=== PATIENT | female | born 1995 | race Hispanic/Latino ===

== ENCOUNTER 2016-11-25 22:23 | Emergency (ER) | payer OTHER ==
[2016-11-26] MEDS ORDERED: ONDANSETRON 4 MG ORAL DISINTEGRATING TAB (S0181) As Ordered ONE ×2 (01:02→01:11)
[2016-11-26 01:08] LABS: BASO % 0.3 % (0.0-1.0); EOS % 0.3 % (0.0-3.0); LARGE UNSTAINED CELL # 0.1 K/mm3 (0.0-0.4); LARGE UNSTAINED CELL % 1.1 % (0.0-4.0); LYMPH # 1.7 K/mm3 (1.5-6.5); LYMPH % 14.8 % (24.0-44.0); MEAN CORPUSCULAR HEMOGLOBIN 28.1 pg (27.0-33.0); MEAN CORPUSCULAR HGB CONC 32.5 g/dl (32.0-36.5); MEAN CORPUSCULAR VOLUME 86.3 fl (80.0-96.0); MONO # 0.5 K/mm3 (0.0-0.8); NEUTROPHILS # 9.2 K/mm3 (1.8-7.7); NEUTROPHILS % 79.5 % (36.0-66.0); PLATELET COUNT, AUTOMATED 344 k/mm3 (150-450); RED CELL DISTRIBUTION WIDTH 13.4 % (11.5-14.5); WHITE BLOOD COUNT 11.6 K/mm3 (4.0-10.0)
[2016-11-26 01:17] LABS: ALBUMIN 3.7 GM/DL (3.2-5.2); ALBUMIN/GLOBULIN RATIO 0.97 (1.00-1.93); ALKALINE PHOSPHATASE 129 U/L (45-117); ALT/SGPT 30 U/L (12-78); AMYLASE 72 U/L (25-115); ANION GAP 10 MEQ/L (8-16); AST/SGOT 18 U/L (15-37); BILIRUBIN,DIRECT 0.1 MG/DL (0.0-0.2); BILIRUBIN,TOTAL 0.3 MG/DL (0.2-1.0); BLOOD UREA NITROGEN 10 MG/DL (7-18); CALCIUM LEVEL 8.8 MG/DL (8.5-10.1); CARBON DIOXIDE LEVEL 28 MEQ/L (21-32); CHLORIDE LEVEL 103 MEQ/L (98-107); CREATININE FOR GFR 0.74 MG/DL (0.55-1.02); GLOMERULAR FILTRATION RATE > 60.0 (>60); GLUCOSE, FASTING 112 MG/DL (70-105); POTASSIUM SERUM 3.9 MEQ/L (3.5-5.1); SODIUM LEVEL 141 MEQ/L (136-145); TOTAL PROTEIN 7.5 GM/DL (6.4-8.2)
[2016-11-26 02:35] LABS: CONTROL LINE HCG INT CTR LINE PRESENT
[2016-11-26] MEDS ORDERED: ISOVUE-370 76% 100ML VIAL (Q9967) As Ordered ONE (03:10)
--- NOTE | 2016-11-26 04:00 | REPUSA ---
CLINICAL HISTORY: Abdominal pain. TECHNIQUE: Multiple axial, sagittal and coronal CT images were obtained through the abdomen and pelvi s after administration of intravenous contrast material. COMMENTS: Compared to 06/25/16 study. The liver is of uniform attenuation without mass or defect. There is no intra or extrahepatic biliary ductal dilatation. The spleen is normal. The gallbladder is surgically absent. The pancreas is of no rmal contour and attenuation characteristics. There is no evidence of adrenal mass. Both kidneys demonstrate prompt and equal nephrograms. The kidneys are normal in size, shape and conf iguration. There is no evidence of renal or ureteral mass. No renal or ureteral calculi are identifie d. There is no hydroureter or hydronephrosis. No evidence for appendicitis. There is no bowel wall thickening. No evidence for small or large juan ramon l obstruction. There is no evidence of abdominal ascites or lymphadenopathy. There is no evidence of intrinsic or extrinsic bladder mass. There is no pelvic ascites or lymphadeno mainor. Images of the lung bases show no evidence of pleural or parenchymal mass. There are no pleural effusi ons. The bony structures are free of lytic or blastic lesions. IMPRESSION: No acute abdominal or pelvic pathology. No interval change. No evidence of acute abdominal or pelvic pathology. Thank you for your kind referral of this patient.
--- NOTE | 2016-11-26 04:30 | EDDOCDS ---
Nurse's Notes [facility] Name: Melida Peoples Age: 21 yrs Sex: Female : 1995 Arrival Date: 11/25/2016 Time: 22:23 Bed 18 Private MD: EWA Baltazar Diagnosis: Postcholecystectomy syndrome Presentation: 11/25 22:27 Presenting complaint: Patient states: right sided abd pain (x2 weeks). Now has nausea, ttb diarrhea. Urinary frequency noted. Pt states she has an apt with surgeon who removed gallbladder however cannot wait for apt due to the amount of pain. Risk factors: the patient reports no vaginal bleeding. Adult Sepsis Screening: The patient does not have new or worsening altered mentation. Patient's respiratory rate is less than 22. Systolic blood pressure is greater than 100. Patient has a qSOFA score of 0- Negative Sepsis Screen. Suicide/Homicide risk assessment- the patient denies having any suicidal and/or homicidal ideations and does not present with any other emotional, behavioral or mental health complaints. Status: The patient is a dependent. Transition of care: patient was not received from another setting of care. 22:27 Acuity: SEAN Level 3 ttb 22:27 Method Of Arrival: Walkin/Carried/Asstd ttb Triage Assessment: 22:29 General: Appears in no apparent distress, uncomfortable, well nourished, well groomed, ttb Behavior is appropriate for age, cooperative, pleasant, restless. Pain: Location: right abd 10/10 Pain radiates to mid abd, flank, lower back. HIV screening NA for this visit Offered previously. Neurological: Level of Consciousness is awake, alert. Cardiovascular: Chest pain is denied. Respiratory: No deficits noted. Airway is patent Denies cough, shortness of breath. GI: Reports bloating, diarrhea, lower abdominal pain, upper abd pain, nausea, Denies constipation. Derm: Skin is normal. Injury Description: No known injury. 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 none - PMHx: none; - PSHx: Cholecystectomy; Tonsillectomy; Adenoidectomy; - Social history: Smoking status: Patient uses tobacco products, current every day smoker. Patient/guardian denies using alcohol, street drugs, No barriers to communication noted, The patient speaks fluent German, Speaks appropriately for age. - Family history: Not pertinent. - : The pt / caregiver states he / she is not on anticoagulants. Home medication list is obtained from the patient. - Exposure Risk Screening:: None identified. Screenin/15 00:28 Screening information is obtained from the patient. Fall risk: No risks identified. kas2 Assistance ADL's: requires no assistance with activities of daily living. Abuse/DV Screen: The patient / caregiver reports he/she is: not in a situation that causes fear, pain or injury. Nutritional screening: No deficits noted. Advance Directives: Currently, there is no health care proxy. There is no active DNR order. There is no living will. There is no Power of Bisque Cleaner. home support is adequate. Assessment: 00:25 General: Appears in no apparent distress, uncomfortable, well nourished, well groomed, kas2 Behavior is appropriate for age, cooperative. Pain: Location: abdominal Pain currently is 9 out of 10 on a pain scale. Neurological: Level of Consciousness is awake, alert, Oriented to person, place, time. Cardiovascular: Capillary refill < 3 seconds Heart tones S1 S2 present Rhythm is sinus tachycardia No ectopy. Respiratory: Airway is patent Respiratory effort is even, unlabored, Respiratory pattern is regular, symmetrical, Breath sounds are clear bilaterally. GI: Abdomen is obese, Bowel sounds present X 4 quads. Abd is tender to palpation X 4 quads. Derm: Skin is intact, Skin is dry, Skin is pink, warm & dry. Skin temperature is warm. 01:32 General: Patient sitting in bed with friend at bedside. No apparent distress. Patient kas2 states pain is 2/10. Call palacios within reach. Will continue to monitor.. 02:25 General: Patient laying in bed with friend at bedside. Appears comfortable. Watching kas2 TV. No apparent distress. Call palacios within reach. Will continue to monitor.. 03:10 General: Patient gone to CT scan with tech via stretcher.. kas2 03:18 General: Patient back from CT scan via stretcher with RN. Resettled in bed.. kas2 03:21 General: Appears in no apparent distress, comfortable, well nourished, well groomed, kas2 Behavior is appropriate for age, cooperative. Pain: Location: abdomen Pain currently is 2 out of 10 on a pain scale. Neurological: Level of Consciousness is awake, alert, Oriented to person, place, time. Cardiovascular: Rhythm is sinus tachycardia No ectopy. Respiratory: Airway is patent Respiratory effort is even, unlabored, Respiratory pattern is regular, symmetrical. Derm: Skin Skin is dry, Skin is pink, warm & dry. Skin temperature is warm. 03:58 General: Patient up to bathroom to void.. kas2 Vital Signs: 11/25 22:25 BP 144 / 82; Pulse 139; Resp 18 S; Temp 99.2(O); Pulse Ox 100% on R/A; Weight 104.33 kg dd6 (R); Height 5 ft. 3 in. (160.02 cm) (R); 11/26 01:08 BP 131 / 67 RA Supine; Pulse 106; kas2 01:08 BP 131 / 66 RA Sitting; Pulse 102; kas2 01:08 BP 131 / 75 RA Standing; Pulse 116; kas2 04:27 BP 128 / 62; Pulse 90; Resp 18; Temp 97.6(O); Pulse Ox 99% ; Pain 3/10; kas2 11/25 22:25 Body Mass Index 40.74 (104.33 kg, 160.02 cm) dd6 Vitals: 11/25 22:25 Log In Time: November 25, 2016 at 22:23. dd6 ED Course: 22:24 Patient visited by Derick Vora PCA. dd6 22:24 Patient moved to Waiting dd6 22:25 Giovanny [facility] is Private Physician. dd6 22:26 Patient moved to Pre RCE dd6 22:28 Triage Initiated ttb 22:31 Patient visited by Lucita Bishop RN. ttb 22:37 Patient visited by Lucita Bishop RN. ttb 23:34 Patient moved to Triage 1 jmb 11/26 00:[address],ELIAZAR is Primary Nurse. jmb 00:01 Patient moved to 18 jmb 00:[address] by Gayatri Lane RN. kas2 00:[address] visited by Gayatri Lane RN. kas2 00:35 Patient visited by Gayatri Lane RN. kas2 00:35 Inserted saline lock: 20 gauge in left antecubital area and blood collected. The kas2 patient tolerated the procedure well. No procedures done that require assistance. 00:40 Matthew Rouse DO is Attending Physician. cs11 00:41 Patient visited by Matthew Rouse DO. cs11 01:01 Lipase Sent. kas2 01:01 Amylase Sent. kas2 01:01 Liver Profile Sent. kas2 01:01 MED Profile Sent. kas2 01:01 CBC with Diff Sent. kas2 01:01 Urine Culture Sent. kas2 01:09 [address] visited by Gayatri Lane RN. kas2 01:45 Patient visited by Gayatri Lane RN. kas2 02:19 Patient visited by Gayatri Lane RN. kas2 02:38 [facility] Payment Agreement was scanned into [employer] and attached to record. hs2 03:[address] Gayatri Lane RN. kas2 03:[address] Gayatri Lane RN. kas2 04:06 Redd Emery DO is Referral Physician. cs11 04:13 CT ABD & PELVIS: IV Contrast Only Returned. EDMS 04:28 Discontinued IV bleeding controlled, pressure dressing applied, No redness/swelling at [facility] site. 04:29 [address] visited by Gayatri Lane RN. kas2 04:29 The patient / caregiver is instructed regarding the plan of care and ED course. [facility] Administered Medications: 01:09 Drug: Ondansetron ODT 8 mg [ondansetron 4 mg disintegrating tablet (2 tabs)] Route: PO; [facility] Order Results: Lab Order: UA; SPEC'M 11/25/16 22:41 Test: APPEARANCE, URINE; Value: CLEAR; Range: CLEAR; Status: F Test: COLOR, URINE; Value: YELLOW; Range: YELLOW; Status: F Test: PH,URINE; Value: 5.0; Range: 5.0-9.0; Units: UNITS; Status: F Test: SPECIFIC GRAVITY URINE AUTO; Value: 1.013; Range: 1.002-1.035; Status: F Test: PROTEIN, URINE AUTO; Value: NEGATIVE; Range: NEGATIVE; Units: mg/dL; Status: F Test: GLUCOSE, URINE (UA) AUTO; Value: NEGATIVE; Range: NEGATIVE; Units: mg/dL; Status: F Test: KETONE, URINE AUTO; Value: NEGATIVE; Range: NEGATIVE; Units: mg/dL; Status: F Test: UROBILINOGEN, URINE AUTO; Value: 0.2; Range: 0.0-2.0; Units: mg/dL; Status: F Test: BILIRUBIN, URINE AUTO; Value: NEGATIVE; Range: NEGATIVE; Status: F Test: NITRITE, URINE AUTO; Value: NEGATIVE; Range: NEGATIVE; Status: F Test: LEUKOCYTE ESTERASE, URINE AUTO; Value: NEGATIVE; Range: NEGATIVE; Status: F Test: BLOOD, URINE BLOOD; Value: 1+; Range: NEGATIVE; Abnormal: Above high normal; Status: F Test: WBC, URINE AUTO; Value: 1; Range: 0-3; Units: /HPF; Status: F Test: RBC, URINE AUTO; Value: 2; Range: 0-3; Units: /HPF; Status: F Test: BACTERIA, URINE AUTO; Value: NEGATIVE; Range: NEGATIVE; Status: F Test: SQUAMOUS EPITHELIAL CELL UR AU; Value: 0; Range: 0-6; Units: /HPF; Status: F Test: MUCUS, URINE; Value: SMALL; Range: NEGATIVE; Status: F Test: HYALINE CAST, URINE AUTO; Value: 0; Range: 0-1; Units: /LPF; Status: F Lab Order: CBC with Diff; SPEC'M 11/26/16 00:34 Test: WHITE BLOOD COUNT; Value: 11.6; Range: 4.0-10.0; Abnormal: Above high normal; Units: K/mm3; Status: F Test: RED BLOOD COUNT; Value: 4.31; Range: 4.00-5.40; Units: M/mm3; Status: F Test: HEMOGLOBIN; Value: 12.1; Range: 12.0-16.0; Units: g/dl; Status: F Test: HEMATOCRIT; Value: 37.2; Range: 36.0-47.0; Units: %; Status: F Test: MEAN CORPUSCULAR VOLUME; Value: 86.3; Range: 80.0-96.0; Units: fl; Status: F Test: MEAN CORPUSCULAR HEMOGLOBIN; Value: 28.1; Range: 27.0-33.0; Units: pg; Status: F Test: MEAN CORPUSCULAR HGB CONC; Value: 32.5; Range: 32.0-36.5; Units: g/dl; Status: F Test: RED CELL DISTRIBUTION WIDTH; Value: 13.4; Range: 11.5-14.5; Units: %; Status: F Test: PLATELET COUNT, AUTOMATED; Value: 344; Range: 150-450; Units: k/mm3; Status: F Test: NEUTROPHILS %; Value: 79.5; Range: 36.0-66.0; Abnormal: Above high normal; Units: %; Status: F Test: LYMPH %; Value: 14.8; Range: 24.0-44.0; Abnormal: Below low normal; Units: %; Status: F Test: MONO %; Value: 4.0; Range: 0.0-5.0; Units: %; Status: F Test: EOS %; Value: 0.3; Range: 0.0-3.0; Units: %; Status: F Test: BASO %; Value: 0.3; Range: 0.0-1.0; Units: %; Status: F Test: LARGE UNSTAINED CELL %; Value: 1.1; Range: 0.0-4.0; Units: %; Status: F Test: NEUTROPHILS #; Value: 9.2; Range: 1.8-7.7; Abnormal: Above high normal; Units: K/mm3; Status: F Test: LYMPH #; Value: 1.7; Range: 1.5-6.5; Units: K/mm3; Status: F Test: MONO #; Value: 0.5; Range: 0.0-0.8; Units: K/mm3; Status: F Test: EOS #; Value: 0.0; Range: 0.0-0.50; Units: K/mm3; Status: F Test: BASO #; Value: 0.0; Range: 0.0-0.2; Units: K/mm3; Status: F Test: LARGE UNSTAINED CELL #; Value: 0.1; Range: 0.0-0.4; Units: K/mm3; Status: F Lab Order: MED Profile; SPEC'M 11/26/16 00:34 Test: GLUCOSE, FASTING; Value: 112; Range: 70-105; Abnormal: Above high normal; Units: MG/DL; Status: F Test: BLOOD UREA NITROGEN; Value: 10; Range: 7-18; Units: MG/DL; Status: F Test: CREATININE FOR GFR; Value: 0.74; Range: 0.55-1.02; Units: MG/DL; Status: F Test: GLOMERULAR FILTRATION RATE; Value: > 60.0; Range: >60; Status: F Test: SODIUM LEVEL; Value: 141; Range: 136-145; Units: MEQ/L; Status: F Test: POTASSIUM SERUM; Value: 3.9; Range: 3.5-5.1; Units: MEQ/L; Status: F Test: CHLORIDE LEVEL; Value: 103; Range: 98-107; Units: MEQ/L; Status: F Test: CARBON DIOXIDE LEVEL; Value: 28; Range: 21-32; Units: MEQ/L; Status: F Test: ANION GAP; Value: 10; Range: 8-16; Units: MEQ/L; Status: F Test: CALCIUM LEVEL; Value: 8.8; Range: 8.5-10.1; Units: MG/DL; Status: F Test Note: ; Units are mL/min/1.73 m2 Chronic Kidney Disease Staging per NKF: Stage I & II GFR >=60 Normal to Mildly Decreased Stage III GFR 30-59 Moderately Decreased Stage IV GFR 15-29 Severely Decreased Stage V GFR <15 Very Little GFR Left ESRD GFR <15 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 Lab Order: Liver Profile; [facility]' 11/26/16 00:34 Test: AST/SGOT; Value: 18; Range: 15-37; Units: U/L; Status: F Test: ALT/SGPT; Value: 30; Range: 12-78; Units: U/L; Status: F Test: ALKALINE PHOSPHATASE; Value: 129; Range: 45-117; Abnormal: Above high normal; Units: U/L; Status: F Test: BILIRUBIN,TOTAL; Value: 0.3; Range: 0.2-1.0; Units: MG/DL; Status: F Test: BILIRUBIN,DIRECT; Value: 0.1; Range: 0.0-0.2; Units: MG/DL; Status: F Test: TOTAL PROTEIN; Value: 7.5; Range: 6.4-8.2; Units: GM/DL; Status: F Test: ALBUMIN; Value: 3.7; Range: 3.2-5.2; Units: GM/DL; Status: F Test: ALBUMIN/GLOBULIN RATIO; Value: 0.97; Range: 1.00-1.93; Abnormal: Below low normal; Status: F Lab Order: Amylase; SPEC'M 11/26/16 00:34 Test: AMYLASE; Value: 72; Range: 25-115; Units: U/L; Status: F Lab Order: Lipase; SPEC'M 11/26/16 00:34 Test: LIPASE; Value: 129; Range: 73-393; Units: U/L; Status: F Lab Order: HCG,Serum Qualitative; SPEC'M 11/26/16 00:34 Test: HCG, SERUM QUALITATIVE; Value: NEGATIVE; Range: NEGATIVE; Status: F Radiology Order: CT ABD & PELVIS: IV Contrast Only Test: CT ABD & PELVIS: IV Contrast Only REASON FOR EXAMINATION: Abdomen Pain; ; CLINICAL HISTORY: Abdominal pain.; TECHNIQUE: Multiple axial, sagittal and coronal CT images were obtained through the abdomen and pelvi; s after administration of intravenous contrast material.; COMMENTS: Compared to 06/25/16 study.; The liver is of uniform attenuation without mass or defect. There is no intra or extrahepatic biliary; ductal dilatation. The spleen is normal. The gallbladder is surgically absent. The pancreas is of no; rmal contour and attenuation characteristics. There is no evidence of adrenal mass.; Both kidneys demonstrate prompt and equal nephrograms. The kidneys are normal in size, shape and conf; iguration. There is no evidence of renal or ureteral mass. No renal or ureteral calculi are identifie; d. There is no hydroureter or hydronephrosis.; No evidence for appendicitis. There is no bowel wall thickening. No evidence for small or large juan ramon; l obstruction. There is no evidence of abdominal ascites or lymphadenopathy.; There is no evidence of intrinsic or extrinsic bladder mass. There is no pelvic ascites or lymphadeno; mainor.; Images of the lung bases show no evidence of pleural or parenchymal mass. There are no pleural effusi; ons.; The bony structures are free of lytic or blastic lesions.; IMPRESSION:; No acute abdominal or pelvic pathology. No interval change.; No evidence of acute abdominal or pelvic pathology.; Thank you for your kind referral of this patient.; ; Outcome: 04:06 Discharge ordered by Provider. cs11 04:28 Discharge Assessment: patient administered narcotics - no. The following High Risk kas2 Discharge criteria are identified: None. Discharged to home ambulatory, with friend. Condition: good Condition: stable Condition: improved. CT Study completed. Property :Personal belongings accompany Pt. 04:29 Patient left the ED. kas2 Signatures: Dispatcher [employer] EDMS Derick Vora, COLORMAN COLORMAN dd6 Matthew Rouse, DO cs11 Lucita Bishop RN RN ttb Issac Michelle RN RN b Brianne Garcia, Reg Reg hs2 Gayatri Lane RN RN [facility] Corrections: (The following items were deleted from the chart) 11/25 22:36 22:27 Presenting complaint: Patient states: right sided abd pain, nausea, diarrhea. ttb Urinary frequency noted. ttb MTDD
--- NOTE | 2016-11-26 04:30 | EDDOCDS ---
Physician Documentation [facility] Name: Melida Peoples Age: 21 yrs Sex: Female : 1995 Arrival Date: 11/25/2016 Time: 22:23 Bed 18 Private MD: Giovanny [facility] Disposition: 11/26/16 04:06 Discharged to Home/Self Care. Impression: Postcholecystectomy syndrome. - Condition is Stable. - Medication Reconciliation, Local Pharmacy Hours form. - Follow up: Private Physician; When: As previously arranged; Reason: Recheck today's complaints. Follow up: Redd Emery DO; When: As previously arranged. - Problem is an ongoing problem. - Symptoms have improved. Historical: - Allergies: no known allergies; - Home Meds: 1. none - PMHx: none; - PSHx: Cholecystectomy; Tonsillectomy; Adenoidectomy; - Social history: Smoking status: Patient uses tobacco products, current every day smoker. Patient/guardian denies using alcohol, street drugs, No barriers to communication noted, The patient speaks fluent Sami, Speaks appropriately for age. - Family history: Not pertinent. - : The pt / caregiver states he / she is not on anticoagulants. Home medication list is obtained from the patient. - Exposure Risk Screening:: None identified. 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 3 in. (160.02 cm) (R); 11/26 01:08 BP 131 / 67 RA Supine; Pulse 106; kas2 01:08 BP 131 / 66 RA Sitting; Pulse 102; kas2 01:08 BP 131 / 75 RA Standing; Pulse 116; kas2 04:27 BP 128 / 62; Pulse 90; Resp 18; Temp 97.6(O); Pulse Ox 99% ; Pain 3/10; kas2 11/25 22:25 Body Mass Index 40.74 (104.33 kg, 160.02 cm) dd6 MDM: 11/25 22:38 UA Ordered. EDMS 11/26 00:59 UA Reviewed. cs11 01:00 Ondansetron ODT Oral Disintegrating Tablet 8 mg PO once ordered. cs11 01:00 Orthostatic VS ordered. cs11 01:00 CBC with Diff Ordered. EDMS 01:00 MED Profile Ordered. EDMS 01:00 Liver Profile Ordered. EDMS 01:00 Amylase Ordered. EDMS 01:00 Lipase Ordered. EDMS 01:00 Urine Culture Ordered. EDMS 01:21 Financial registration complete. hs2 02:23 CBC with Diff Reviewed. cs11 02:23 MED Profile Reviewed. cs11 02:23 Liver Profile Reviewed. cs11 02:23 Amylase Reviewed. cs11 02:23 Lipase Reviewed. cs11 02:25 HCG,Serum Qualitative Ordered. EDMS 02:38 [facility] Payment Agreement was scanned into [employer] and attached to record. hs2 02:56 HCG,Serum Qualitative Reviewed. cs11 02:57 CT ABD & PELVIS: IV Contrast Only Ordered. EDMS Administered Medications: 01:09 Drug: Ondansetron ODT 8 mg [ondansetron 4 mg disintegrating tablet (2 tabs)] Route: PO; kas2 Signatures: Dispatcher [employer] EDMS Matthew Rouse DO DO cs11 Lucita Bishop RN RN ttb Brianne Garcia, Reg Reg hs2 Gayatri Lane RN RN kas2 The chart was reviewed and I authenticate all verbal orders and agree with the evaluation and treatment provided.Attachments: 02:38 [facility] Payment Agreement hs2 MTDD
--- NOTE | 2016-11-28 05:30 | EDDOCDS ---
Physician Documentation [facility] Name: Melida Peoples Age: 21 yrs Sex: Female : 1995 Arrival Date: 11/25/2016 Time: 22:23 Bed 18 Private MD: [facility] [place] Disposition: 11/26/16 04:06 Discharged to Home/Self Care. Impression: Postcholecystectomy syndrome. - Condition is Stable. - Medication Reconciliation, Local Pharmacy Hours form. - Follow up: Private Physician; When: As previously arranged; Reason: Recheck today's complaints. Follow up: Redd Emery DO; When: As previously arranged. - Problem is an ongoing problem. - Symptoms have improved. Historical: - Allergies: no known allergies; - Home Meds: 1. none - PMHx: none; - PSHx: Cholecystectomy; Tonsillectomy; Adenoidectomy; - Social history: Smoking status: Patient uses tobacco products, current every day smoker. Patient/guardian denies using alcohol, street drugs, No barriers to communication noted, The patient speaks fluent Swedish, Speaks appropriately for age. - Family history: Not pertinent. - : The pt / caregiver states he / she is not on anticoagulants. Home medication list is obtained from the patient. - Exposure Risk Screening:: None identified. 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 3 in. (160.02 cm) (R); 11/26 01:08 BP 131 / 67 RA Supine; Pulse 106; kas2 01:08 BP 131 / 66 RA Sitting; Pulse 102; kas2 01:08 BP 131 / 75 RA Standing; Pulse 116; kas2 04:27 BP 128 / 62; Pulse 90; Resp 18; Temp 97.6(O); Pulse Ox 99% ; Pain 3/10; kas2 11/25 22:25 Body Mass Index 40.74 (104.33 kg, 160.02 cm) dd6 MDM: 11/25 22:38 UA Ordered. EDMS 11/26 00:59 UA Reviewed. cs11 01:00 Ondansetron ODT Oral Disintegrating Tablet 8 mg PO once ordered. cs11 01:00 Orthostatic VS ordered. cs11 01:00 CBC with Diff Ordered. EDMS 01:00 MED Profile Ordered. EDMS 01:00 Liver Profile Ordered. EDMS 01:00 Amylase Ordered. EDMS 01:00 Lipase Ordered. EDMS 01:00 Urine Culture Ordered. EDMS 01:21 Financial registration complete. hs2 02:23 CBC with Diff Reviewed. cs11 02:23 MED Profile Reviewed. cs11 02:23 Liver Profile Reviewed. cs11 02:23 Amylase Reviewed. cs11 02:23 Lipase Reviewed. cs11 02:25 HCG,Serum Qualitative Ordered. EDMS 02:38 [facility] Payment Agreement was scanned into [employer] and attached to record. hs2 02:56 HCG,Serum Qualitative Reviewed. cs11 02:57 CT ABD & PELVIS: IV Contrast Only Ordered. EDMS 09:07 T-Sheet-- Draft Copy was scanned into [employer] and attached to record. se 20:28 Radiology Report was scanned into [employer] and attached to record. klr 11/27 07:39 Radiology Report was scanned into [employer] and attached to record. gb Administered Medications: 11/26 01:09 Drug: Ondansetron ODT 8 mg [ondansetron 4 mg disintegrating tablet (2 tabs)] Route: PO; kas2 Signatures: Dispatcher [employer] EDNY Devorah Cordova, Reg Reg gb Matthew Rouse, DO DO cs11 Lucita Bishop RN RN ttb Brianne Garcia, Reg Reg hs2 Gayatri Lane RN RN kas2 Lynette Walker Kathie klr The chart was reviewed and I authenticate all verbal orders and agree with the evaluation and treatment provided.Attachments: 02:38 [facility] Payment Agreement hs2 09:07 T-Sheet-- Draft Copy se Chart Complete MTDD
--- NOTE | 2016-11-28 05:30 | EDDOCDS ---
Physician Documentation [facility] Name: eMlida Peoples Age: 21 yrs Sex: Female : 1995 Arrival Date: 11/25/2016 Time: 22:23 Bed 18 Private MD: Giov[facility] Disposition: 11/26/16 04:06 Discharged to Home/Self Care. Impression: Postcholecystectomy syndrome. - Condition is Stable. - Medication Reconciliation, Local Pharmacy Hours form. - Follow up: Private Physician; When: As previously arranged; Reason: Recheck today's complaints. Follow up: Redd Emery DO; When: As previously arranged. - Problem is an ongoing problem. - Symptoms have improved. Historical: - Allergies: no known allergies; - Home Meds: 1. none - PMHx: none; - PSHx: Cholecystectomy; Tonsillectomy; Adenoidectomy; - Social history: Smoking status: Patient uses tobacco products, current every day smoker. Patient/guardian denies using alcohol, street drugs, No barriers to communication noted, The patient speaks fluent Mohawk, Speaks appropriately for age. - Family history: Not pertinent. - : The pt / caregiver states he / she is not on anticoagulants. Home medication list is obtained from the patient. - Exposure Risk Screening:: None identified. 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 3 in. (160.02 cm) (R); 11/26 01:08 BP 131 / 67 RA Supine; Pulse 106; kas2 01:08 BP 131 / 66 RA Sitting; Pulse 102; kas2 01:08 BP 131 / 75 RA Standing; Pulse 116; kas2 04:27 BP 128 / 62; Pulse 90; Resp 18; Temp 97.6(O); Pulse Ox 99% ; Pain 3/10; kas2 11/25 22:25 Body Mass Index 40.74 (104.33 kg, 160.02 cm) dd6 MDM: 11/25 22:38 UA Ordered. EDMS 11/26 00:59 UA Reviewed. cs11 01:00 Ondansetron ODT Oral Disintegrating Tablet 8 mg PO once ordered. cs11 01:00 Orthostatic VS ordered. cs11 01:00 CBC with Diff Ordered. EDMS 01:00 MED Profile Ordered. EDMS 01:00 Liver Profile Ordered. EDMS 01:00 Amylase Ordered. EDMS 01:00 Lipase Ordered. EDMS 01:00 Urine Culture Ordered. EDMS 01:21 Financial registration complete. hs2 02:23 CBC with Diff Reviewed. cs11 02:23 MED Profile Reviewed. cs11 02:23 Liver Profile Reviewed. cs11 02:23 Amylase Reviewed. cs11 02:23 Lipase Reviewed. cs11 02:25 HCG,Serum Qualitative Ordered. EDMS 02:38 [facility] Payment Agreement was scanned into [employer] and attached to record. hs2 02:56 HCG,Serum Qualitative Reviewed. cs11 02:57 CT ABD & PELVIS: IV Contrast Only Ordered. EDMS 09:07 T-Sheet-- Draft Copy was scanned into [employer] and attached to record. se 20:28 Radiology Report was scanned into [employer] and attached to record. klr 11/27 07:39 Radiology Report was scanned into [employer] and attached to record. gb Administered Medications: 11/26 01:09 Drug: Ondansetron ODT 8 mg [ondansetron 4 mg disintegrating tablet (2 tabs)] Route: PO; kas2 Signatures: Dispatcher [employer] EDUT Devorah Cordova, Reg Reg gb Matthew Rouse, DO DO cs11 Lucita Bishop RN RN ttb Brianne Garcia, Reg Reg hs2 Gayatri Lane RN RN kas2 Lynette Walker Kathie klr The chart was reviewed and I authenticate all verbal orders and agree with the evaluation and treatment provided.Attachments: 02:38 [facility] Payment Agreement hs2 09:07 T-Sheet-- Draft Copy se Chart Complete MTDD
--- NOTE | 2016-11-28 05:30 | EDDOCDS ---
Nurse's Notes [facility] Name: Melida Peoples Age: 21 yrs Sex: Female : 1995 Arrival Date: 11/25/2016 Time: 22:23 Bed 18 Private MD: EWA Baltazar Diagnosis: Postcholecystectomy syndrome Presentation: 11/25 22:27 Presenting complaint: Patient states: right sided abd pain (x2 weeks). Now has nausea, ttb diarrhea. Urinary frequency noted. Pt states she has an apt with surgeon who removed gallbladder however cannot wait for apt due to the amount of pain. Risk factors: the patient reports no vaginal bleeding. Adult Sepsis Screening: The patient does not have new or worsening altered mentation. Patient's respiratory rate is less than 22. Systolic blood pressure is greater than 100. Patient has a qSOFA score of 0- Negative Sepsis Screen. Suicide/Homicide risk assessment- the patient denies having any suicidal and/or homicidal ideations and does not present with any other emotional, behavioral or mental health complaints. Status: The patient is a dependent. Transition of care: patient was not received from another setting of care. 22:27 Acuity: SEAN Level 3 ttb 22:27 Method Of Arrival: Walkin/Carried/Asstd ttb Triage Assessment: 22:29 General: Appears in no apparent distress, uncomfortable, well nourished, well groomed, ttb Behavior is appropriate for age, cooperative, pleasant, restless. Pain: Location: right abd 10/10 Pain radiates to mid abd, flank, lower back. HIV screening NA for this visit Offered previously. Neurological: Level of Consciousness is awake, alert. Cardiovascular: Chest pain is denied. Respiratory: No deficits noted. Airway is patent Denies cough, shortness of breath. GI: Reports bloating, diarrhea, lower abdominal pain, upper abd pain, nausea, Denies constipation. Derm: Skin is normal. Injury Description: No known injury. 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 none - PMHx: none; - PSHx: Cholecystectomy; Tonsillectomy; Adenoidectomy; - Social history: Smoking status: Patient uses tobacco products, current every day smoker. Patient/guardian denies using alcohol, street drugs, No barriers to communication noted, The patient speaks fluent Danish, Speaks appropriately for age. - Family history: Not pertinent. - : The pt / caregiver states he / she is not on anticoagulants. Home medication list is obtained from the patient. - Exposure Risk Screening:: None identified. Screenin/15 00:28 Screening information is obtained from the patient. Fall risk: No risks identified. kas2 Assistance ADL's: requires no assistance with activities of daily living. Abuse/DV Screen: The patient / caregiver reports he/she is: not in a situation that causes fear, pain or injury. Nutritional screening: No deficits noted. Advance Directives: Currently, there is no health care proxy. There is no active DNR order. There is no living will. There is no Power of Insulation Inspector. home support is adequate. Assessment: 00:25 General: Appears in no apparent distress, uncomfortable, well nourished, well groomed, kas2 Behavior is appropriate for age, cooperative. Pain: Location: abdominal Pain currently is 9 out of 10 on a pain scale. Neurological: Level of Consciousness is awake, alert, Oriented to person, place, time. Cardiovascular: Capillary refill < 3 seconds Heart tones S1 S2 present Rhythm is sinus tachycardia No ectopy. Respiratory: Airway is patent Respiratory effort is even, unlabored, Respiratory pattern is regular, symmetrical, Breath sounds are clear bilaterally. GI: Abdomen is obese, Bowel sounds present X 4 quads. Abd is tender to palpation X 4 quads. Derm: Skin is intact, Skin is dry, Skin is pink, warm & dry. Skin temperature is warm. 01:32 General: Patient sitting in bed with friend at bedside. No apparent distress. Patient kas2 states pain is 2/10. Call palacios within reach. Will continue to monitor.. 02:25 General: Patient laying in bed with friend at bedside. Appears comfortable. Watching kas2 TV. No apparent distress. Call palacios within reach. Will continue to monitor.. 03:10 General: Patient gone to CT scan with tech via stretcher.. kas2 03:18 General: Patient back from CT scan via stretcher with RN. Resettled in bed.. kas2 03:21 General: Appears in no apparent distress, comfortable, well nourished, well groomed, kas2 Behavior is appropriate for age, cooperative. Pain: Location: abdomen Pain currently is 2 out of 10 on a pain scale. Neurological: Level of Consciousness is awake, alert, Oriented to person, place, time. Cardiovascular: Rhythm is sinus tachycardia No ectopy. Respiratory: Airway is patent Respiratory effort is even, unlabored, Respiratory pattern is regular, symmetrical. Derm: Skin Skin is dry, Skin is pink, warm & dry. Skin temperature is warm. 03:58 General: Patient up to bathroom to void.. kas2 Vital Signs: 11/25 22:25 BP 144 / 82; Pulse 139; Resp 18 S; Temp 99.2(O); Pulse Ox 100% on R/A; Weight 104.33 kg dd6 (R); Height 5 ft. 3 in. (160.02 cm) (R); 11/26 01:08 BP 131 / 67 RA Supine; Pulse 106; kas2 01:08 BP 131 / 66 RA Sitting; Pulse 102; kas2 01:08 BP 131 / 75 RA Standing; Pulse 116; kas2 04:27 BP 128 / 62; Pulse 90; Resp 18; Temp 97.6(O); Pulse Ox 99% ; Pain 3/10; kas2 11/25 22:25 Body Mass Index 40.74 (104.33 kg, 160.02 cm) dd6 Vitals: 11/25 22:25 Log In Time: November 25, 2016 at 22:23. dd6 ED Course: 22:24 Patient visited by Derick Vora PCA. dd6 22:24 Patient moved to Waiting dd6 22:25 Giovanny [facility] is Private Physician. dd6 22:26 Patient moved to Pre RCE dd6 22:28 Triage Initiated ttb 22:31 Patient visited by Lucita Bishop RN. ttb 22:37 Patient visited by Lucita Bishop RN. ttb 23:34 Patient moved to Triage 1 jmb 11/26 00:[address],ELIAZAR is Primary Nurse. jmb 00:01 Patient moved to 18 jmb 00:[address] by Gayatri Lane RN. kas2 00:28 [address] visited by Gayatri Lane RN. kas2 00:35 Patient visited by Gayatri Lane RN. kas2 00:35 Inserted saline lock: 20 gauge in left antecubital area and blood collected. The kas2 patient tolerated the procedure well. No procedures done that require assistance. 00:40 Matthew Rouse DO is Attending Physician. cs11 00:41 Patient visited by Matthew Rouse DO. cs11 01:01 Lipase Sent. kas2 01:01 Amylase Sent. kas2 01:01 Liver Profile Sent. kas2 01:01 MED Profile Sent. kas2 01:01 CBC with Diff Sent. kas2 01:01 Urine Culture Sent. kas2 01:09 [address] visited by Gayatri Lane RN. kas2 01:[address] by Gayatri Lane RN. kas2 02:19 [address] visited by Gayatri Lane RN. kas2 02:38 [facility] Payment Agreement was scanned into RECUPYL and attached to record. hs2 03:[address] Gayatri Lane RN. kas2 03:[address] Gayatri Lane RN. kas2 04:06 Redd Emery DO is Referral Physician. cs11 04:13 CT ABD & PELVIS: IV Contrast Only Returned. EDMS 04:28 Discontinued IV bleeding controlled, pressure dressing applied, No redness/swelling at [facility] site. 04:[address] visited by Gayatri Lane RN. kas2 04:29 The patient / caregiver is instructed regarding the plan of care and ED course. [facility] 09:07 T-Sheet-- Draft Copy was scanned into RECUPYL and attached to record. [facility] 20:28 Radiology Report was scanned into RECUPYL and attached to record. klr 11/27 07:39 Radiology Report was scanned into RECUPYL and attached to record. gb Administered Medications: 11/26 01:09 Drug: Ondansetron ODT 8 mg [ondansetron 4 mg disintegrating tablet (2 tabs)] Route: PO; kas2 Order Results: Lab Order: UA; SPEC'M 11/25/16 22:41 Test: APPEARANCE, URINE; Value: CLEAR; Range: CLEAR; Status: F Test: COLOR, URINE; Value: YELLOW; Range: YELLOW; Status: F Test: PH,URINE; Value: 5.0; Range: 5.0-9.0; Units: UNITS; Status: F Test: SPECIFIC GRAVITY URINE AUTO; Value: 1.013; Range: 1.002-1.035; Status: F Test: PROTEIN, URINE AUTO; Value: NEGATIVE; Range: NEGATIVE; Units: mg/dL; Status: F Test: GLUCOSE, URINE (UA) AUTO; Value: NEGATIVE; Range: NEGATIVE; Units: mg/dL; Status: F Test: KETONE, URINE AUTO; Value: NEGATIVE; Range: NEGATIVE; Units: mg/dL; Status: F Test: UROBILINOGEN, URINE AUTO; Value: 0.2; Range: 0.0-2.0; Units: mg/dL; Status: F Test: BILIRUBIN, URINE AUTO; Value: NEGATIVE; Range: NEGATIVE; Status: F Test: NITRITE, URINE AUTO; Value: NEGATIVE; Range: NEGATIVE; Status: F Test: LEUKOCYTE ESTERASE, URINE AUTO; Value: NEGATIVE; Range: NEGATIVE; Status: F Test: BLOOD, URINE BLOOD; Value: 1+; Range: NEGATIVE; Abnormal: Above high normal; Status: F Test: WBC, URINE AUTO; Value: 1; Range: 0-3; Units: /HPF; Status: F Test: RBC, URINE AUTO; Value: 2; Range: 0-3; Units: /HPF; Status: F Test: BACTERIA, URINE AUTO; Value: NEGATIVE; Range: NEGATIVE; Status: F Test: SQUAMOUS EPITHELIAL CELL UR AU; Value: 0; Range: 0-6; Units: /HPF; Status: F Test: MUCUS, URINE; Value: SMALL; Range: NEGATIVE; Status: F Test: HYALINE CAST, URINE AUTO; Value: 0; Range: 0-1; Units: /LPF; Status: F Lab Order: CBC with Diff; SPEC'M 11/26/16 00:34 Test: WHITE BLOOD COUNT; Value: 11.6; Range: 4.0-10.0; Abnormal: Above high normal; Units: K/mm3; Status: F Test: RED BLOOD COUNT; Value: 4.31; Range: 4.00-5.40; Units: M/mm3; Status: F Test: HEMOGLOBIN; Value: 12.1; Range: 12.0-16.0; Units: g/dl; Status: F Test: HEMATOCRIT; Value: 37.2; Range: 36.0-47.0; Units: %; Status: F Test: MEAN CORPUSCULAR VOLUME; Value: 86.3; Range: 80.0-96.0; Units: fl; Status: F Test: MEAN CORPUSCULAR HEMOGLOBIN; Value: 28.1; Range: 27.0-33.0; Units: pg; Status: F Test: MEAN CORPUSCULAR HGB CONC; Value: 32.5; Range: 32.0-36.5; Units: g/dl; Status: F Test: RED CELL DISTRIBUTION WIDTH; Value: 13.4; Range: 11.5-14.5; Units: %; Status: F Test: PLATELET COUNT, AUTOMATED; Value: 344; Range: 150-450; Units: k/mm3; Status: F Test: NEUTROPHILS %; Value: 79.5; Range: 36.0-66.0; Abnormal: Above high normal; Units: %; Status: F Test: LYMPH %; Value: 14.8; Range: 24.0-44.0; Abnormal: Below low normal; Units: %; Status: F Test: MONO %; Value: 4.0; Range: 0.0-5.0; Units: %; Status: F Test: EOS %; Value: 0.3; Range: 0.0-3.0; Units: %; Status: F Test: BASO %; Value: 0.3; Range: 0.0-1.0; Units: %; Status: F Test: LARGE UNSTAINED CELL %; Value: 1.1; Range: 0.0-4.0; Units: %; Status: F Test: NEUTROPHILS #; Value: 9.2; Range: 1.8-7.7; Abnormal: Above high normal; Units: K/mm3; Status: F Test: LYMPH #; Value: 1.7; Range: 1.5-6.5; Units: K/mm3; Status: F Test: MONO #; Value: 0.5; Range: 0.0-0.8; Units: K/mm3; Status: F Test: EOS #; Value: 0.0; Range: 0.0-0.50; Units: K/mm3; Status: F Test: BASO #; Value: 0.0; Range: 0.0-0.2; Units: K/mm3; Status: F Test: LARGE UNSTAINED CELL #; Value: 0.1; Range: 0.0-0.4; Units: K/mm3; Status: F Lab Order: MED Profile; SPEC'M 11/26/16 00:34 Test: GLUCOSE, FASTING; Value: 112; Range: 70-105; Abnormal: Above high normal; Units: MG/DL; Status: F Test: BLOOD UREA NITROGEN; Value: 10; Range: 7-18; Units: MG/DL; Status: F Test: CREATININE FOR GFR; Value: 0.74; Range: 0.55-1.02; Units: MG/DL; Status: F Test: GLOMERULAR FILTRATION RATE; Value: > 60.0; Range: >60; Status: F Test: SODIUM LEVEL; Value: 141; Range: 136-145; Units: MEQ/L; Status: F Test: POTASSIUM SERUM; Value: 3.9; Range: 3.5-5.1; Units: MEQ/L; Status: F Test: CHLORIDE LEVEL; Value: 103; Range: 98-107; Units: MEQ/L; Status: F Test: CARBON DIOXIDE LEVEL; Value: 28; Range: 21-32; Units: MEQ/L; Status: F Test: ANION GAP; Value: 10; Range: 8-16; Units: MEQ/L; Status: F Test: CALCIUM LEVEL; Value: 8.8; Range: 8.5-10.1; Units: MG/DL; Status: F Test Note: ; Units are mL/min/1.73 m2 Chronic Kidney Disease Staging per NKF: Stage I & II GFR >=60 Normal to Mildly Decreased Stage III GFR 30-59 Moderately Decreased Stage IV GFR 15-29 Severely Decreased Stage V GFR <15 Very Little GFR Left ESRD GFR <15 on BAND [employer]W [employer]PERATOR [employer]KE CUTTING Lab Order: Liver Profile; SPEC'M 11/26/16 00:34 Test: AST/SGOT; Value: 18; Range: 15-37; Units: U/L; Status: F Test: ALT/SGPT; Value: 30; Range: 12-78; Units: U/L; Status: F Test: ALKALINE PHOSPHATASE; Value: 129; Range: 45-117; Abnormal: Above high normal; Units: U/L; Status: F Test: BILIRUBIN,TOTAL; Value: 0.3; Range: 0.2-1.0; Units: MG/DL; Status: F Test: BILIRUBIN,DIRECT; Value: 0.1; Range: 0.0-0.2; Units: MG/DL; Status: F Test: TOTAL PROTEIN; Value: 7.5; Range: 6.4-8.2; Units: GM/DL; Status: F Test: ALBUMIN; Value: 3.7; Range: 3.2-5.2; Units: GM/DL; Status: F Test: ALBUMIN/GLOBULIN RATIO; Value: 0.97; Range: 1.00-1.93; Abnormal: Below low normal; Status: F Lab Order: Amylase; SPEC'M 11/26/16 00:34 Test: AMYLASE; Value: 72; Range: 25-115; Units: U/L; Status: F Lab Order: Lipase; SPEC'M 11/26/16 00:34 Test: LIPASE; Value: 129; Range: 73-393; Units: U/L; Status: F Lab Order: Urine Culture; SPEC'M 11/25/16 22:41 Test: URINE CULTURE; Value: URINE CULTURE RESULT; Status: F Test: URINE CULTURE; Value: NO GROWTH CLINICAL SIGNIFICANCE 2 OR MORE ORGANISMS; Status: F Lab Order: HCG,Serum Qualitative; SPEC'M 11/26/16 00:34 Test: HCG, SERUM QUALITATIVE; Value: NEGATIVE; Range: NEGATIVE; Status: F Radiology Order: CT ABD & PELVIS: IV Contrast Only Test: CT ABD & PELVIS: IV Contrast Only REASON FOR EXAMINATION: Abdomen Pain; ; CLINICAL HISTORY: Abdominal pain.; TECHNIQUE: Multiple axial, sagittal and coronal CT images were obtained through the abdomen and pelvi; s after administration of intravenous contrast material.; COMMENTS: Compared to 06/25/16 study.; The liver is of uniform attenuation without mass or defect. There is no intra or extrahepatic biliary; ductal dilatation. The spleen is normal. The gallbladder is surgically absent. The pancreas is of no; rmal contour and attenuation characteristics. There is no evidence of adrenal mass.; Both kidneys demonstrate prompt and equal nephrograms. The kidneys are normal in size, shape and conf; iguration. There is no evidence of renal or ureteral mass. No renal or ureteral calculi are identifie; d. There is no hydroureter or hydronephrosis.; No evidence for appendicitis. There is no bowel wall thickening. No evidence for small or large juan ramon; l obstruction. There is no evidence of abdominal ascites or lymphadenopathy.; There is no evidence of intrinsic or extrinsic bladder mass. There is no pelvic ascites or lymphadeno; mainor.; Images of the lung bases show no evidence of pleural or parenchymal mass. There are no pleural effusi; ons.; The bony structures are free of lytic or blastic lesions.; IMPRESSION:; No acute abdominal or pelvic pathology. No interval change.; No evidence of acute abdominal or pelvic pathology.; Thank you for your kind referral of this patient.; ; Outcome: 04:06 Discharge ordered by Provider. 11 04:28 Discharge Assessment: patient administered narcotics - no. The following High Risk [facility] Discharge criteria are identified: None. Discharged to home ambulatory, with friend. Condition: good Condition: stable Condition: improved. CT Study completed. Property :Personal belongings accompany Pt. 04:29 Patient left the ED. [facility] Signatures: Dispatcher Med[employer] EDMS Devorah Cordova, Reg Reg gb Derick Vora, COMMERCIAL CONSTRUCTION SUPERINTENDENT COMMERCIAL CONSTRUCTION SUPERINTENDENT dd6 Matthew Rouse, DO DO cs11 uLcita Bishop RN RN carylb Issac Michelle RN RN Brianne Avalos, Reg Reg hs2 Gayatri Lane RN RN kas2 Lynette Walker Kathie klr Corrections: (The following items were deleted from the chart) 11/25 22:36 22:27 Presenting complaint: Patient states: right sided abd pain, nausea, diarrhea. ttb Urinary frequency noted. ttb Chart Complete MTDD
== END 2016-11-26 04:29 | disposition home or self-care (01) ==
LOC: M ED 22:23
DX: K91.5 Postcholecystectomy syndrome (principal); Z90.49 Acquired absence of other specified parts of digestive tract; Z90.89 Acquired absence of other organs; F17.200 Nicotine dependence, unspecified, uncomplicated
CPT/HCPCS: 36415; 74177; 80048; 80076; 81001; 82150; 83690; 84703; 85025; 87086; 99285; Q9967

== ENCOUNTER 2016-11-27 02:25 | Emergency (ER) | payer OTHER ==
--- NOTE | 2016-11-27 07:41 | EDDOCDS ---
Physician Documentation [facility] Name: Melida Peoples Age: 21 yrs Sex: Female : 1995 Arrival Date: 11/27/2016 Time: 02:25 Bed 14 Private MD: Disposition: 11/27/16 06:08 Discharged to Home/Self Care. Impression: Volume depletion, Orthostatic hypotension. - Condition is Stable. - Medication Reconciliation, Local Pharmacy Hours form. - Follow up: Private Physician; When: 1 - 2 days; Reason: Recheck today's complaints, Continuance of care. - Problem is an ongoing problem. - Symptoms have improved. Historical: - Allergies: No known drug Allergies; - Home Meds: 1. none - PMHx: none; - PSHx: Cholecystectomy; Tonsillectomy; Adenoidectomy; - Social history: Smoking status: Cigars No barriers to communication noted, The patient speaks fluent Latvian, Speaks appropriately for age. - Family history: Not pertinent, No immediate family members are acutely ill. - : The pt / caregiver states he / she is not on anticoagulants. Home medication list is obtained from the patient, [employer] import data. - Exposure Risk Screening:: None identified. 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 3 in. (160.02 cm) (R); Pain 8/10; 02:48 BP 121 / 73 (auto/); kmg1 02:48 Pulse 92 MON; Pulse Ox 98% ; kmg1 03:03 BP 113 / 56 (auto/); kmg1 03:03 Pulse 84 MON; Pulse Ox 96% ; kmg1 03:18 BP 117 / 56 (auto/); kmg1 03:18 Pulse 80 MON; Pulse Ox 97% ; kmg1 03:33 BP 103 / 56 (auto/); kmg1 03:33 Pulse 84 MON; Pulse Ox 96% ; kmg1 03:48 BP 104 / 58 (auto/); kmg1 03:48 Pulse 86 MON; Pulse Ox 98% ; kmg1 04:15 BP 109 / 65 Supine; Pulse 82; kmg1 04:16 BP 126 / 81 Sitting; Pulse 88; kmg1 04:17 BP 132 / 84 Standing; Pulse 100; kmg1 06:11 BP 115 / 76 LA Sitting (auto/reg); Pulse 89 MON; Resp 18 S; Temp 98.7(TE); Pulse Ox 97% cln on R/A; Pain 0/10; 02:41 Body Mass Index 40.74 (104.33 kg, 160.02 cm) kmg1 04:17 reports dizziness [facility] MDM: 03:01 Fingerstick Blood Sugar Ordered. EDMS 03:18 Financial registration complete. [facility] 04:11 Orthostatic VS ordered. cs11 04:22 NS 0.9% 2000 ml IV at bolus once ordered. [facility] 04:32 [facility] [place] Agreement was scanned into [employer] and attached to record. [facility] Point of Care Testing: Blood Glucose: 02:55 Blood Glucose: 90 mg/dL; kmg1 Ranges: Administered Medications: 04:32 Drug: NS 0.9% 2000 ml [sodium chloride 0.9 % intravenous solution] Route: IV; Rate: kmg1 bolus; Site: right antecubital; Signatures: Dispatcher [employer] [facility] Marcelle Galarza RN RN g1 Renita Roe RN RN hs1 Matthew Rouse, DO [facility] Ava Graff [facility] The chart was reviewed and I authenticate all verbal orders and agree with the evaluation and treatment provided.Attachments: 04:32 [facility] Payment Agreement [facility] MTDD
--- NOTE | 2016-11-27 07:41 | EDDOCDS ---
Nurse's Notes [facility] Name: Melida Peoples Age: 21 yrs Sex: Female : 1995 Arrival Date: 11/27/2016 Time: 02:25 Bed 14 Private MD: Diagnosis: Volume depletion;Orthostatic hypotension Presentation: 11/27 02:37 Presenting complaint: Patient states: Awoke this morning on the floor. Had been kmg1 watching TV all day and resting. Got up to go to bed and felt left arm and chest, neck, and face get stiff and numb then remembers darkness. Was down for approx hour and a half as best she can recall. Suicide/Homicide risk assessment- the patient denies having any suicidal and/or homicidal ideations and does not present with any other emotional, behavioral or mental health complaints. Status: The patient is a dependent. Transition of care: patient was not received from another setting of care. 02:37 Acuity: SE[place] 3 [facility] [place] Method Of Arrival: [place]in[place] [facility] [place] 07:37 Adult Sepsis Screening: The patient does not have new or worsening altered mentation. hs1 Patient's respiratory rate is less than 22. Systolic blood pressure is greater than 100. Patient has a qSOFA score of 0- Negative Sepsis Screen. Triage Assessment: 02:41 General: Appears in no apparent distress, comfortable, Behavior is appropriate for age, kmg1 cooperative, pleasant. Pain: Location: left supraclavicular area, left clavicle and left arm Pain currently is 8 out of 10 on a pain scale. Quality of pain is described as tightness. HIV screening NA for this visit Offered previously. Neurological: Level of Consciousness is awake, alert, Oriented to person, place, time, Reports dizziness, a syncopal episode weakness. 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 none - PMHx: none; - PSHx: Cholecystectomy; Tonsillectomy; Adenoidectomy; - Social history: Smoking status: Cigars No barriers to communication noted, The patient speaks fluent Jamaican, Speaks appropriately for age. - Family history: Not pertinent, No immediate family members are acutely ill. - : The pt / caregiver states he / she is not on anticoagulants. Home medication list is obtained from the patient, [employer] import data. - Exposure Risk Screening:: None identified. Screenin:49 Screening information is obtained from the patient. Fall risk: At risk due to prior [facility] [place] of [place]. Assistance ADL's: requires no assistance with activities of daily living. Abuse/DV Screen: The patient / caregiver reports he/she is: not in a situation that causes fear, pain or injury. Nutritional screening: No deficits noted. Advance Directives: There is no active DNR order. home support is adequate. Assessment: 02:49 Adult Sepsis Screening: The patient does not have new or worsening altered mentation. kmg1 Patient's respiratory rate is less than 22. Systolic blood pressure is greater than 100. Patient has a qSOFA score of 0- Negative Sepsis Screen. General: Appears in no apparent distress, comfortable, obese, Behavior is appropriate for age, quiet. Pain: Location: left arm and chest and left clavicle and left supraclavicular area Pain currently is 8 out of 10 on a pain scale. Neurological: Level of Consciousness is awake, alert, Oriented to person, place, time. Cardiovascular: Capillary refill < 3 seconds Heart tones S1 S2 present Rhythm is sinus rhythm No ectopy. Respiratory: Airway is patent Respiratory effort is even, unlabored, Respiratory pattern is regular, symmetrical, Breath sounds are clear bilaterally. GI: Abdomen is obese, Bowel sounds present X 4 quads. Abd is soft and non tender X 4 quads. 03:56 Reassessment: Patient appears in no apparent distress at this time. Patient states [facility] [place] have not improved. No change in prior assessment. Resting on stretcher. 05:00 General: Appears in no apparent distress, comfortable, Behavior is appropriate for age, kmg1 cooperative, pleasant. Neurological: Level of Consciousness is awake, alert, Reports dizziness, headache. 06:00 General: Appears in no apparent distress, comfortable, Behavior is appropriate for age, kmg1 quiet, Sleeping at intervals. IV fluid infusing without fault. Respiratory: Airway is patent Respiratory effort is even, unlabored, Respiratory pattern is regular, symmetrical. 06:41 Reassessment: Patient appears in no apparent distress at this time. No change in prior [facility] [place]. 07:38 General: Appears in no apparent distress, comfortable, Behavior is appropriate for age, hs1 cooperative. Pain: Denies pain. Neurological: Level of Consciousness is awake, alert, Oriented to person, place, time. Derm: Skin is pink, warm & dry. normal. Vital Signs: 02:41 BP 126 / 73; Pulse 88; Resp 18; Temp 98.9(TE); Pulse Ox 97% ; Weight 104.33 kg (R); kmg1 Height 5 ft. 3 in. (160.02 cm) (R); Pain 8/10; 02:48 BP 121 / 73 (auto/); g1 02:48 Pulse 92 MON; Pulse Ox 98% ; g1 03:03 BP 113 / 56 (auto/); g1 03:03 Pulse 84 MON; Pulse Ox 96% ; [facility] [place]:18 BP 117 / 56 (auto/); [facility] 03[place]18 Pulse 80 MON; Pulse Ox 97% ; [facility] 03:33 BP 103 / 56 (auto/); g1 03:33 Pulse 84 MON; Pulse Ox 96% ; [facility] 03:48 BP 104 / 58 (auto/); g1 03:48 Pulse 86 MON; Pulse Ox 98% ; [facility] 04:15 BP 109 / 65 Supine; Pulse 82; [facility] 04:16 BP 126 / 81 Sitting; Pulse 88; [facility] 04:17 BP 132 / 84 Standing; Pulse 100; [facility] 06:11 BP 115 / 76 LA Sitting (auto/reg); Pulse 89 MON; Resp 18 S; Temp 98.7(TE); Pulse Ox 97% cln on R/A; Pain 0/10; 02:41 Body Mass Index 40.74 (104.33 kg, 160.02 cm) kmg1 04:17 reports dizziness [facility] [place] Vitals: 02:41 Log In Time: November 27, 2016 at 02:27. g1 07:38 Glucose Measurement not obtained. hs1 ED Course: 02:25 Patient visited by Brianne Garcia Reg. hs2 02:25 Patient moved to Waiting hs2 02:37 Patient moved to 14 kmg1 02:40 Triage Initiated kmg1 02:45 Matthew Rouse DO is Attending Physician. cs11 02:46 Patient visited by Matthew Rouse DO. cs11 02:55 Patient visited by Marcelle Galarza, ELIAZAR. kmg1 03:56 Patient visited by Briana Mason PCA. lillian 03:57 Patient visited by Marcelle Galarza RN. kmg1 04:32 [facility] Payment Agreement was scanned into [employer] and attached to record. [facility] 04:32 The patient / caregiver is instructed regarding the plan of care and ED course. Bed [place] [facility] [place] position. Side rails up X2. 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 Pulse ox on. NIBP on. [facility] 04:32 Inserted saline lock: 18 gauge in right antecubital area. No procedures done that [facility] require assistance. 04:34 Patient visited by Marcelle Galarza RN. [facility] 05:39 Patient visited by Briana Mason PCA. lillian 06:12 Patient visited by Nadine Lopez FLAP LINING BINDER. cln 06:41 Patient visited by Marcelle Galarza RN. [facility] 07:39 Discontinued IV lock intact, bleeding controlled, pressure dressing applied, No hs1 redness/swelling at site. Administered Medications: 04:32 Drug: NS 0.9% 2000 ml [sodium chloride 0.9 % intravenous solution] Route: IV; Rate: kmg1 bolus; Site: right antecubital; Point of Care Testing: Blood Glucose: 02:55 Blood Glucose: 90 mg/dL; kmg1 Ranges: Order Results: Lab Order: Fingerstick Blood Sugar; SPEC'M 11/27/16 02:54 Test: BEDSIDE GLUCOSE; Value: 90; Range: 70-105; Units: MG/DL; Status: F Outcome: 06:08 Discharge ordered by Provider. [facility] 07:37 Discharge Assessment: Patient awake, alert and oriented x 3. No cognitive and/or hs1 functional deficits noted. Patient verbalized understanding of disposition instructions. patient administered narcotics - no. The following High Risk Discharge criteria are identified: None. Discharged to home ambulatory. Condition: stable. Discharge instructions given to patient, Instructed on discharge instructions, follow up and referral plans. medication usage, Demonstrated understanding of instructions, medications, Pt was receptive of discharge instructions/ teaching. No special radiology studies were completed. Property sent home with patient. 07:40 Patient left the ED. hs1 Signatures: Marcelle Galarza RN RN [facility] Renita Roe RN RN hs1 Briana Mason, FLAP LINING BINDER FLAP LINING BINDER lillian Matthew Rouse, DO cs11 Ava Graff [facility] Brianne Garcia, Reg Reg hs2 Nadine Lopez, FLAP LINING BINDER FLAP LINING BINDER cln MTDD
--- NOTE | 2016-11-29 08:40 | EDDOCDS ---
Physician Documentation [facility] Name: Melida Peoples Age: 21 yrs Sex: Female : 1995 Arrival Date: 11/27/2016 Time: 02:25 Bed 14 Private MD: Disposition: 11/27/16 06:08 Discharged to Home/Self Care. Impression: Volume depletion, Orthostatic hypotension. - Condition is Stable. - Medication Reconciliation, Local Pharmacy Hours form. - Follow up: Private Physician; When: 1 - 2 days; Reason: Recheck today's complaints, Continuance of care. - Problem is an ongoing problem. - Symptoms have improved. Historical: - Allergies: No known drug Allergies; - Home Meds: 1. none - PMHx: none; - PSHx: Cholecystectomy; Tonsillectomy; Adenoidectomy; - Social history: Smoking status: Cigars No barriers to communication noted, The patient speaks fluent Greenlandic, Speaks appropriately for age. - Family history: Not pertinent, No immediate family members are acutely ill. - : The pt / caregiver states he / she is not on anticoagulants. Home medication list is obtained from the patient, [employer] import data. - Exposure Risk Screening:: None identified. 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 3 in. (160.02 cm) (R); Pain 8/10; 02:48 BP 121 / 73 (auto/); kmg1 02:48 Pulse 92 MON; Pulse Ox 98% ; kmg1 03:03 BP 113 / 56 (auto/); kmg1 03:03 Pulse 84 MON; Pulse Ox 96% ; kmg1 03:18 BP 117 / 56 (auto/); kmg1 03:18 Pulse 80 MON; Pulse Ox 97% ; kmg1 03:33 BP 103 / 56 (auto/); kmg1 03:33 Pulse 84 MON; Pulse Ox 96% ; kmg1 03:48 BP 104 / 58 (auto/); kmg1 03:48 Pulse 86 MON; Pulse Ox 98% ; kmg1 04:15 BP 109 / 65 Supine; Pulse 82; kmg1 04:16 BP 126 / 81 Sitting; Pulse 88; kmg1 04:17 BP 132 / 84 Standing; Pulse 100; kmg1 06:11 BP 115 / 76 LA Sitting (auto/reg); Pulse 89 MON; Resp 18 S; Temp 98.7(TE); Pulse Ox 97% cln on R/A; Pain 0/10; 07:41 BP 111 / 80; Pulse 87; Resp 18; Temp 97.9; Pulse Ox 97% ; Pain 0/10; hs1 02:41 Body Mass Index 40.74 (104.33 kg, 160.02 cm) kmg1 04:17 reports dizziness kmg1 MDM: 03:01 Fingerstick Blood Sugar Ordered. EDMS 03:18 Financial registration complete. [facility] 04:11 Orthostatic VS ordered. cs11 04:22 NS 0.9% 2000 ml IV at bolus once ordered. [facility] 04:32 [facility] Payment Agreement was scanned into Master[employer]D and attached to record. [facility] 14:34 T-Sheet-- Draft Copy was scanned into [employer] and attached to record. Point of Care Testing: Blood Glucose: 02:55 Blood Glucose: 90 mg/dL; kmg1 Ranges: Administered Medications: 04:32 Drug: NS 0.9% 2000 ml [sodium chloride 0.9 % intravenous solution] Route: IV; Rate: kmg1 bolus; Site: right antecubital; 07:40 Follow up: IV Status: Completed infusion; IV Intake: 2000ml hs1 Signatures: Dispatcher [employer] EDME Marcelle Galarza RN RN kmg1 Devorah Cordova, Reg Reg Renita Roe RN RN hs1 Matthew Rouse, DO [facility] Ava Graff [facility] The chart was reviewed and I authenticate all verbal orders and agree with the evaluation and treatment provided.Attachments: 04:32 [facility] Payment Agreement [facility] 14:34 T-Sheet-- Draft Copy Chart Complete MTDD
--- NOTE | 2016-11-29 08:40 | EDDOCDS ---
Physician Documentation [facility] Name: Melida Peoples Age: 21 yrs Sex: Female : 1995 Arrival Date: 11/27/2016 Time: 02:25 Bed 14 Private MD: Disposition: 11/27/16 06:08 Discharged to Home/Self Care. Impression: Volume depletion, Orthostatic hypotension. - Condition is Stable. - Medication Reconciliation, Local Pharmacy Hours form. - Follow up: Private Physician; When: 1 - 2 days; Reason: Recheck today's complaints, Continuance of care. - Problem is an ongoing problem. - Symptoms have improved. Historical: - Allergies: No known drug Allergies; - Home Meds: 1. none - PMHx: none; - PSHx: Cholecystectomy; Tonsillectomy; Adenoidectomy; - Social history: Smoking status: Cigars No barriers to communication noted, The patient speaks fluent Korean, Speaks appropriately for age. - Family history: Not pertinent, No immediate family members are acutely ill. - : The pt / caregiver states he / she is not on anticoagulants. Home medication list is obtained from the patient, [employer] import data. - Exposure Risk Screening:: None identified. 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 3 in. (160.02 cm) (R); Pain 8/10; 02:48 BP 121 / 73 (auto/); kmg1 02:48 Pulse 92 MON; Pulse Ox 98% ; kmg1 03:03 BP 113 / 56 (auto/); kmg1 03:03 Pulse 84 MON; Pulse Ox 96% ; kmg1 03:18 BP 117 / 56 (auto/); kmg1 03:18 Pulse 80 MON; Pulse Ox 97% ; kmg1 03:33 BP 103 / 56 (auto/); kmg1 03:33 Pulse 84 MON; Pulse Ox 96% ; kmg1 03:48 BP 104 / 58 (auto/); kmg1 03:48 Pulse 86 MON; Pulse Ox 98% ; kmg1 04:15 BP 109 / 65 Supine; Pulse 82; kmg1 04:16 BP 126 / 81 Sitting; Pulse 88; kmg1 04:17 BP 132 / 84 Standing; Pulse 100; kmg1 06:11 BP 115 / 76 LA Sitting (auto/reg); Pulse 89 MON; Resp 18 S; Temp 98.7(TE); Pulse Ox 97% cln on R/A; Pain 0/10; 07:41 BP 111 / 80; Pulse 87; Resp 18; Temp 97.9; Pulse Ox 97% ; Pain 0/10; hs1 02:41 Body Mass Index 40.74 (104.33 kg, 160.02 cm) kmg1 04:17 reports dizziness kmg1 MDM: 03:01 Fingerstick Blood Sugar Ordered. EDMS 03:18 Financial registration complete. [facility] 04:11 Orthostatic VS ordered. cs11 04:22 NS 0.9% 2000 ml IV at bolus once ordered. [facility] 04:32 [facility] Payment Agreement was scanned into All My Data and attached to record. [facility] 14:34 T-Sheet-- Draft Copy was scanned into All My [employer] and attached to record. Point of Care Testing: Blood Glucose: 02:55 Blood Glucose: 90 mg/dL; kmg1 Ranges: Administered Medications: 04:32 Drug: NS 0.9% 2000 ml [sodium chloride 0.9 % intravenous solution] Route: IV; Rate: kmg1 bolus; Site: right antecubital; 07:40 Follow up: IV Status: Completed infusion; IV Intake: 2000ml hs1 Signatures: Dispatcher [employer] EDMI Marcelle Galarza RN RN kmg1 Devorah Cordova, Reg Reg Renita Roe RN RN hs1 Matthew Rouse, DO [facility] Ava Graff [facility] The chart was reviewed and I authenticate all verbal orders and agree with the evaluation and treatment provided.Attachments: 04:32 [facility] Payment Agreement [facility] 14:34 T-Sheet-- Draft Copy Chart Complete MTDD
--- NOTE | 2016-11-29 08:40 | EDDOCDS ---
Nurse's Notes [facility] Name: Melida Peoples Age: 21 yrs Sex: Female : 1995 Arrival Date: 11/27/2016 Time: 02:25 Bed 14 Private MD: Diagnosis: Volume depletion;Orthostatic hypotension Presentation: 11/27 02:37 Presenting complaint: Patient states: Awoke this morning on the floor. Had been kmg1 watching TV all day and resting. Got up to go to bed and felt left arm and chest, neck, and face get stiff and numb then remembers darkness. Was down for approx hour and a half as best she can recall. Suicide/Homicide risk assessment- the patient denies having any suicidal and/or homicidal ideations and does not present with any other emotional, behavioral or mental health complaints. Status: The patient is a dependent. Transition of care: patient was not received from another setting of care. 02:37 Acuity: SEAN Level 3 [facility] 02:37 Method Of Arrival: Walkin/Carried/Asstd [facility] 07:37 Adult Sepsis Screening: The patient does not have new or worsening altered mentation. hs1 Patient's respiratory rate is less than 22. Systolic blood pressure is greater than 100. Patient has a qSOFA score of 0- Negative Sepsis Screen. Triage Assessment: 02:41 General: Appears in no apparent distress, comfortable, Behavior is appropriate for age, kmg1 cooperative, pleasant. Pain: Location: left supraclavicular area, left clavicle and left arm Pain currently is 8 out of 10 on a pain scale. Quality of pain is described as tightness. HIV screening NA for this visit Offered previously. Neurological: Level of Consciousness is awake, alert, Oriented to person, place, time, Reports dizziness, a syncopal episode weakness. 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 none - PMHx: none; - PSHx: Cholecystectomy; Tonsillectomy; Adenoidectomy; - Social history: Smoking status: Cigars No barriers to communication noted, The patient speaks fluent Ghanaian, Speaks appropriately for age. - Family history: Not pertinent, No immediate family members are acutely ill. - : The pt / caregiver states he / she is not on anticoagulants. Home medication list is obtained from the patient, [employer] import data. - Exposure Risk Screening:: None identified. Screenin:49 Screening information is obtained from the patient. Fall risk: At risk due to prior [facility] history of falls. Assistance ADL's: requires no assistance with activities of daily living. Abuse/DV Screen: The patient / caregiver reports he/she is: not in a situation that causes fear, pain or injury. Nutritional screening: No deficits noted. Advance Directives: There is no active DNR order. home support is adequate. Assessment: 02:49 Adult Sepsis Screening: The patient does not have new or worsening altered mentation. kmg1 Patient's respiratory rate is less than 22. Systolic blood pressure is greater than 100. Patient has a qSOFA score of 0- Negative Sepsis Screen. General: Appears in no apparent distress, comfortable, obese, Behavior is appropriate for age, quiet. Pain: Location: left arm and chest and left clavicle and left supraclavicular area Pain currently is 8 out of 10 on a pain scale. Neurological: Level of Consciousness is awake, alert, Oriented to person, place, time. Cardiovascular: Capillary refill < 3 seconds Heart tones S1 S2 present Rhythm is sinus rhythm No ectopy. Respiratory: Airway is patent Respiratory effort is even, unlabored, Respiratory pattern is regular, symmetrical, Breath sounds are clear bilaterally. GI: Abdomen is obese, Bowel sounds present X 4 quads. Abd is soft and non tender X 4 quads. 03:56 Reassessment: Patient appears in no apparent distress at this time. Patient states [facility] symptoms have not improved. No change in prior assessment. Resting on stretcher. 05:00 General: Appears in no apparent distress, comfortable, Behavior is appropriate for age, kmg1 cooperative, pleasant. Neurological: Level of Consciousness is awake, alert, Reports dizziness, headache. 06:00 General: Appears in no apparent distress, comfortable, Behavior is appropriate for age, kmg1 quiet, Sleeping at intervals. IV fluid infusing without fault. Respiratory: Airway is patent Respiratory effort is even, unlabored, Respiratory pattern is regular, symmetrical. 06:41 Reassessment: Patient appears in no apparent distress at this time. No change in prior [facility] assessment. 07:38 General: Appears in no apparent distress, comfortable, Behavior is appropriate for age, hs1 cooperative. Pain: Denies pain. Neurological: Level of Consciousness is awake, alert, Oriented to person, place, time. Derm: Skin is pink, warm & dry. normal. Vital Signs: 02:41 BP 126 / 73; Pulse 88; Resp 18; Temp 98.9(TE); Pulse Ox 97% ; Weight 104.33 kg (R); kmg1 Height 5 ft. 3 in. (160.02 cm) (R); Pain 8/10; 02:48 BP 121 / 73 (auto/); g1 02:48 Pulse 92 MON; Pulse Ox 98% ; g1 03:03 BP 113 / 56 (auto/); g1 03:03 Pulse 84 MON; Pulse Ox 96% ; [facility] 03:18 BP 117 / 56 (auto/); [facility] 03:18 Pulse 80 MON; Pulse Ox 97% ; [facility] 03:33 BP 103 / 56 (auto/); [facility] 03:33 Pulse 84 MON; Pulse Ox 96% ; [facility] 03:48 BP 104 / 58 (auto/); [facility] 03:48 Pulse 86 MON; Pulse Ox 98% ; [facility] 04:15 BP 109 / 65 Supine; Pulse 82; [facility] 04:16 BP 126 / 81 Sitting; Pulse 88; [facility] 04:17 BP 132 / 84 Standing; Pulse 100; [facility] 06:11 BP 115 / 76 LA Sitting (auto/reg); Pulse 89 MON; Resp 18 S; Temp 98.7(TE); Pulse Ox 97% cln on R/A; Pain 0/10; 07:41 BP 111 / 80; Pulse 87; Resp 18; Temp 97.9; Pulse Ox 97% ; Pain 0/10; hs1 02:41 Body Mass Index 40.74 (104.33 kg, 160.02 cm) kmg1 04:17 reports dizziness [facility] Vitals: 02:41 Log In Time: November 27, 2016 at 02:27. [facility] 07:38 Glucose Measurement not obtained. hs1 ED Course: 02:25 Patient visited by Brianne Garcia Reg. hs2 02:25 Patient moved to Waiting hs2 02:37 Patient moved to 14 km 02:40 Triage Initiated km 02:45 Matthew Rouse DO is Attending Physician. cs11 02:46 Patient visited by Matthew Rouse DO. cs11 02:55 Patient visited by Marcelle Galarza RN. kmg1 03:56 Patient visited by Briana Mason, HANNAH. lillian 03:57 Patient visited by Marcelle Galarza RN. [facility] 04:32 [facility] Payment Agreement was scanned into [employer] and attached to record. [facility] 04:32 The patient / caregiver is instructed regarding the plan of care and ED course. Bed in km low position. Side rails up X2. 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 Pulse ox on. NIBP on. kmg1 04:32 Inserted saline lock: 18 gauge in right antecubital area. No procedures done that km require assistance. 04:34 Patient visited by Marcelle Galarza RN. kmg1 05:39 Patient visited by Briana Mason PCA. lillian 06:12 Patient visited by Nadine Lopez PCA. cln 06:41 Patient visited by Marcelle Galarza RN. km 07:39 Discontinued IV lock intact, bleeding controlled, pressure dressing applied, No hs1 redness/swelling at site. 14:34 T-Sheet-- Draft Copy was scanned into [employer] and attached to record. gb Administered Medications: 04:32 Drug: NS 0.9% 2000 ml [sodium chloride 0.9 % intravenous solution] Route: IV; Rate: kmg1 bolus; Site: right antecubital; 07:40 Follow up: IV Status: Completed infusion; IV Intake: 2000ml hs1 Point of Care Testing: Blood Glucose: 02:55 Blood Glucose: 90 mg/dL; kmg1 Ranges: Intake: 07:40 IV: 2000.00ml; Total: 2000.00ml. hs1 Order Results: Lab Order: Fingerstick Blood Sugar; SPEC'M 11/27/16 02:54 Test: BEDSIDE GLUCOSE; Value: 90; Range: 70-105; Units: MG/DL; Status: F Outcome: 06:08 Discharge ordered by Provider. cs11 07:37 Discharge Assessment: Patient awake, alert and oriented x 3. No cognitive and/or hs1 functional deficits noted. Patient verbalized understanding of disposition instructions. patient administered narcotics - no. The following High Risk Discharge criteria are identified: None. Discharged to home ambulatory. Condition: stable. Discharge instructions given to patient, Instructed on discharge instructions, follow up and referral plans. medication usage, Demonstrated understanding of instructions, medications, Pt was receptive of discharge instructions/ teaching. No special radiology studies were completed. Property sent home with patient. 07:40 Patient left the ED. hs1 Signatures: Marcelle Galarza, RN RN kmg1 Devorah Cordova, Reg Reg Renita Roe RN RN hs1 Briana Mason, REINFORCING STEEL MACHINE OPERATOR REINFORCING STEEL MACHINE OPERATOR lillian Matthew Rouse, DO DO cs11 Dajuan, Ava [facility] Brianne Garcia, Reg Reg hs2 Nadine Lopez, REINFORCING STEEL MACHINE OPERATOR REINFORCING STEEL MACHINE OPERATOR cln Chart Complete MTDD
--- NOTE | 2016-12-02 20:17 | EDDOCDS ---
Physician Documentation [facility] Name: Melida Peoples Age: 21 yrs Sex: Female : 1995 Arrival Date: 11/27/2016 Time: 02:25 Bed 14 Private MD: Disposition: 11/27/16 06:08 Discharged to Home/Self Care. Impression: Volume depletion, Orthostatic hypotension. - Condition is Stable. - Medication Reconciliation, Local Pharmacy Hours form. - Follow up: Private Physician; When: 1 - 2 days; Reason: Recheck today's complaints, Continuance of care. - Problem is an ongoing problem. - Symptoms have improved. Historical: - Allergies: No known drug Allergies; - Home Meds: 1. none - PMHx: none; - PSHx: Cholecystectomy; Tonsillectomy; Adenoidectomy; - Social history: Smoking status: Cigars No barriers to communication noted, The patient speaks fluent Mongolian, Speaks appropriately for age. - Family history: Not pertinent, No immediate family members are acutely ill. - : The pt / caregiver states he / she is not on anticoagulants. Home medication list is obtained from the patient, [employer] import data. - Exposure Risk Screening:: None identified. 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 3 in. (160.02 cm) (R); Pain 8/10; 02:48 BP 121 / 73 (auto/); kmg1 02:48 Pulse 92 MON; Pulse Ox 98% ; kmg1 03:03 BP 113 / 56 (auto/); kmg1 03:03 Pulse 84 MON; Pulse Ox 96% ; kmg1 03:18 BP 117 / 56 (auto/); kmg1 03:18 Pulse 80 MON; Pulse Ox 97% ; kmg1 03:33 BP 103 / 56 (auto/); kmg1 03:33 Pulse 84 MON; Pulse Ox 96% ; kmg1 03:48 BP 104 / 58 (auto/); kmg1 03:48 Pulse 86 MON; Pulse Ox 98% ; kmg1 04:15 BP 109 / 65 Supine; Pulse 82; kmg1 04:16 BP 126 / 81 Sitting; Pulse 88; kmg1 04:17 BP 132 / 84 Standing; Pulse 100; kmg1 06:11 BP 115 / 76 LA Sitting (auto/reg); Pulse 89 MON; Resp 18 S; Temp 98.7(TE); Pulse Ox 97% cln on R/A; Pain 0/10; 07:41 BP 111 / 80; Pulse 87; Resp 18; Temp 97.9; Pulse Ox 97% ; Pain 0/10; hs1 02:41 Body Mass Index 40.74 (104.33 kg, 160.02 cm) kmg1 04:17 reports dizziness kmg1 MDM: 03:01 Fingerstick Blood Sugar Ordered. EDMS 03:18 Financial registration complete. [facility] 04:11 Orthostatic VS ordered. cs11 04:22 NS 0.9% 2000 ml IV at bolus once ordered. [facility] 04:32 [facility] Payment Agreement was scanned into [employer] and attached to record. [facility] 14:34 T-Sheet-- Draft Copy was scanned into [employer] and attached to record. Point of Care Testing: Blood Glucose: 02:55 Blood Glucose: 90 mg/dL; kmg1 Ranges: Administered Medications: 04:32 Drug: NS 0.9% 2000 ml [sodium chloride 0.9 % intravenous solution] Route: IV; Rate: kmg1 bolus; Site: right antecubital; 07:40 Follow up: IV Status: Completed infusion; IV Intake: 2000ml hs1 Signatures: Dispatcher MedHo EDWV Marcelle Galarza RN RN kmg1 Devorah Cordova, Reg Reg Renita Roe RN RN hs1 Matthew Rouse, DO [facility] Ava Graff [facility] The chart was reviewed and I authenticate all verbal orders and agree with the evaluation and treatment provided.Attachments: 04:32 [facility] Payment Agreement [facility] 14:34 T-Sheet-- Draft Copy Chart Complete MTDD
--- NOTE | 2016-12-02 20:17 | EDDOCDS ---
Physician Documentation [facility] Name: Melida Peoples Age: 21 yrs Sex: Female : 1995 Arrival Date: 11/27/2016 Time: 02:25 Bed 14 Private MD: Disposition: 11/27/16 06:08 Discharged to Home/Self Care. Impression: Volume depletion, Orthostatic hypotension. - Condition is Stable. - Medication Reconciliation, Local Pharmacy Hours form. - Follow up: Private Physician; When: 1 - 2 days; Reason: Recheck today's complaints, Continuance of care. - Problem is an ongoing problem. - Symptoms have improved. Historical: - Allergies: No known drug Allergies; - Home Meds: 1. none - PMHx: none; - PSHx: Cholecystectomy; Tonsillectomy; Adenoidectomy; - Social history: Smoking status: Cigars No barriers to communication noted, The patient speaks fluent Amharic, Speaks appropriately for age. - Family history: Not pertinent, No immediate family members are acutely ill. - : The pt / caregiver states he / she is not on anticoagulants. Home medication list is obtained from the patient, [employer] import data. - Exposure Risk Screening:: None identified. 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 3 in. (160.02 cm) (R); Pain 8/10; 02:48 BP 121 / 73 (auto/); kmg1 02:48 Pulse 92 MON; Pulse Ox 98% ; kmg1 03:03 BP 113 / 56 (auto/); kmg1 03:03 Pulse 84 MON; Pulse Ox 96% ; kmg1 03:18 BP 117 / 56 (auto/); kmg1 03:18 Pulse 80 MON; Pulse Ox 97% ; kmg1 03:33 BP 103 / 56 (auto/); kmg1 03:33 Pulse 84 MON; Pulse Ox 96% ; kmg1 03:48 BP 104 / 58 (auto/); kmg1 03:48 Pulse 86 MON; Pulse Ox 98% ; kmg1 04:15 BP 109 / 65 Supine; Pulse 82; kmg1 04:16 BP 126 / 81 Sitting; Pulse 88; kmg1 04:17 BP 132 / 84 Standing; Pulse 100; kmg1 06:11 BP 115 / 76 LA Sitting (auto/reg); Pulse 89 MON; Resp 18 S; Temp 98.7(TE); Pulse Ox 97% cln on R/A; Pain 0/10; 07:41 BP 111 / 80; Pulse 87; Resp 18; Temp 97.9; Pulse Ox 97% ; Pain 0/10; hs1 02:41 Body Mass Index 40.74 (104.33 kg, 160.02 cm) kmg1 04:17 reports dizziness kmg1 MDM: 03:01 Fingerstick Blood Sugar Ordered. EDMS 03:18 Financial registration complete. [facility] 04:11 Orthostatic VS ordered. cs11 04:22 NS 0.9% 2000 ml IV at bolus once ordered. [facility] 04:32 [facility] Payment Agreement was scanned into [employer] and attached to record. [facility] 14:34 T-Sheet-- Draft Copy was scanned into [employer] and attached to record. Point of Care Testing: Blood Glucose: 02:55 Blood Glucose: 90 mg/dL; kmg1 Ranges: Administered Medications: 04:32 Drug: NS 0.9% 2000 ml [sodium chloride 0.9 % intravenous solution] Route: IV; Rate: kmg1 bolus; Site: right antecubital; 07:40 Follow up: IV Status: Completed infusion; IV Intake: 2000ml hs1 Signatures: Dispatcher MedHo EDDC Marcelle Galarza RN RN kmg1 Devorah Cordova, Reg Reg Renita Roe RN RN hs1 Matthew Rouse, DO [facility] Ava Graff [facility] The chart was reviewed and I authenticate all verbal orders and agree with the evaluation and treatment provided.Attachments: 04:32 [facility] Payment Agreement [facility] 14:34 T-Sheet-- Draft Copy Chart Complete MTDD
--- NOTE | 2016-12-02 20:18 | EDDOCDS ---
Nurse's Notes [facility] Name: Melida Peoples Age: 21 yrs Sex: Female : 1995 Arrival Date: 11/27/2016 Time: 02:25 Bed 14 Private MD: Diagnosis: Volume depletion;Orthostatic hypotension Presentation: 11/27 02:37 Presenting complaint: Patient states: Awoke this morning on the floor. Had been kmg1 watching TV all day and resting. Got up to go to bed and felt left arm and chest, neck, and face get stiff and numb then remembers darkness. Was down for approx hour and a half as best she can recall. Suicide/Homicide risk assessment- the patient denies having any suicidal and/or homicidal ideations and does not present with any other emotional, behavioral or mental health complaints. Status: The patient is a dependent. Transition of care: patient was not received from another setting of care. 02:37 Acuity: SEAN Level 3 [facility] 02:37 Method Of Arrival: Walkin/Carried/Asstd [facility] 07:37 Adult Sepsis Screening: The patient does not have new or worsening altered mentation. hs1 Patient's respiratory rate is less than 22. Systolic blood pressure is greater than 100. Patient has a qSOFA score of 0- Negative Sepsis Screen. Triage Assessment: 02:41 General: Appears in no apparent distress, comfortable, Behavior is appropriate for age, kmg1 cooperative, pleasant. Pain: Location: left supraclavicular area, left clavicle and left arm Pain currently is 8 out of 10 on a pain scale. Quality of pain is described as tightness. HIV screening NA for this visit Offered previously. Neurological: Level of Consciousness is awake, alert, Oriented to person, place, time, Reports dizziness, a syncopal episode weakness. 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 none - PMHx: none; - PSHx: Cholecystectomy; Tonsillectomy; Adenoidectomy; - Social history: Smoking status: Cigars No barriers to communication noted, The patient speaks fluent Angolan, Speaks appropriately for age. - Family history: Not pertinent, No immediate family members are acutely ill. - : The pt / caregiver states he / she is not on anticoagulants. Home medication list is obtained from the patient, [employer] import data. - Exposure Risk Screening:: None identified. Screenin:49 Screening information is obtained from the patient. Fall risk: At risk due to prior [facility] history of falls. Assistance ADL's: requires no assistance with activities of daily living. Abuse/DV Screen: The patient / caregiver reports he/she is: not in a situation that causes fear, pain or injury. Nutritional screening: No deficits noted. Advance Directives: There is no active DNR order. home support is adequate. Assessment: 02:49 Adult Sepsis Screening: The patient does not have new or worsening altered mentation. kmg1 Patient's respiratory rate is less than 22. Systolic blood pressure is greater than 100. Patient has a qSOFA score of 0- Negative Sepsis Screen. General: Appears in no apparent distress, comfortable, obese, Behavior is appropriate for age, quiet. Pain: Location: left arm and chest and left clavicle and left supraclavicular area Pain currently is 8 out of 10 on a pain scale. Neurological: Level of Consciousness is awake, alert, Oriented to person, place, time. Cardiovascular: Capillary refill < 3 seconds Heart tones S1 S2 present Rhythm is sinus rhythm No ectopy. Respiratory: Airway is patent Respiratory effort is even, unlabored, Respiratory pattern is regular, symmetrical, Breath sounds are clear bilaterally. GI: Abdomen is obese, Bowel sounds present X 4 quads. Abd is soft and non tender X 4 quads. 03:56 Reassessment: Patient appears in no apparent distress at this time. Patient states [facility] symptoms have not improved. No change in prior assessment. Resting on stretcher. 05:00 General: Appears in no apparent distress, comfortable, Behavior is appropriate for age, kmg1 cooperative, pleasant. Neurological: Level of Consciousness is awake, alert, Reports dizziness, headache. 06:00 General: Appears in no apparent distress, comfortable, Behavior is appropriate for age, kmg1 quiet, Sleeping at intervals. IV fluid infusing without fault. Respiratory: Airway is patent Respiratory effort is even, unlabored, Respiratory pattern is regular, symmetrical. 06:41 Reassessment: Patient appears in no apparent distress at this time. No change in prior [facility] assessment. 07:38 General: Appears in no apparent distress, comfortable, Behavior is appropriate for age, hs1 cooperative. Pain: Denies pain. Neurological: Level of Consciousness is awake, alert, Oriented to person, place, time. Derm: Skin is pink, warm & dry. normal. Vital Signs: 02:41 BP 126 / 73; Pulse 88; Resp 18; Temp 98.9(TE); Pulse Ox 97% ; Weight 104.33 kg (R); kmg1 Height 5 ft. 3 in. (160.02 cm) (R); Pain 8/10; 02:48 BP 121 / 73 (auto/); g1 02:48 Pulse 92 MON; Pulse Ox 98% ; g1 03:03 BP 113 / 56 (auto/); g1 03:03 Pulse 84 MON; Pulse Ox 96% ; [facility] 03:18 BP 117 / 56 (auto/); [facility] 03:18 Pulse 80 MON; Pulse Ox 97% ; [facility] 03:33 BP 103 / 56 (auto/); [facility] 03:33 Pulse 84 MON; Pulse Ox 96% ; [facility] 03:48 BP 104 / 58 (auto/); [facility] 03:48 Pulse 86 MON; Pulse Ox 98% ; [facility] 04:15 BP 109 / 65 Supine; Pulse 82; [facility] 04:16 BP 126 / 81 Sitting; Pulse 88; [facility] 04:17 BP 132 / 84 Standing; Pulse 100; [facility] 06:11 BP 115 / 76 LA Sitting (auto/reg); Pulse 89 MON; Resp 18 S; Temp 98.7(TE); Pulse Ox 97% cln on R/A; Pain 0/10; 07:41 BP 111 / 80; Pulse 87; Resp 18; Temp 97.9; Pulse Ox 97% ; Pain 0/10; hs1 02:41 Body Mass Index 40.74 (104.33 kg, 160.02 cm) kmg1 04:17 reports dizziness [facility] Vitals: 02:41 Log In Time: November 27, 2016 at 02:27. [facility] 07:38 Glucose Measurement not obtained. hs1 ED Course: 02:25 Patient visited by Brianne Garcia Reg. hs2 02:25 Patient moved to Waiting hs2 02:37 Patient moved to 14 km 02:40 Triage Initiated km 02:45 Matthew Rouse DO is Attending Physician. cs11 02:46 Patient visited by Matthew Rouse DO. cs11 02:55 Patient visited by Marcelle Galarza RN. kmg1 03:56 Patient visited by Briana Mason, HANNAH. lillian 03:57 Patient visited by Marcelle Galarza RN. [facility] 04:32 [facility] Payment Agreement was scanned into [employer] and attached to record. [facility] 04:32 The patient / caregiver is instructed regarding the plan of care and ED course. Bed in km low position. Side rails up X2. 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 Pulse ox on. NIBP on. kmg1 04:32 Inserted saline lock: 18 gauge in right antecubital area. No procedures done that km require assistance. 04:34 Patient visited by Marcelle Galarza RN. kmg1 05:39 Patient visited by Briana Mason PCA. lillian 06:12 Patient visited by Nadine Lopez PCA. cln 06:41 Patient visited by Marcelle Galarza RN. km 07:39 Discontinued IV lock intact, bleeding controlled, pressure dressing applied, No hs1 redness/swelling at site. 14:34 T-Sheet-- Draft Copy was scanned into [employer] and attached to record. gb Administered Medications: 04:32 Drug: NS 0.9% 2000 ml [sodium chloride 0.9 % intravenous solution] Route: IV; Rate: kmg1 bolus; Site: right antecubital; 07:40 Follow up: IV Status: Completed infusion; IV Intake: 2000ml hs1 Point of Care Testing: Blood Glucose: 02:55 Blood Glucose: 90 mg/dL; kmg1 Ranges: Intake: 07:40 IV: 2000.00ml; Total: 2000.00ml. hs1 Order Results: Lab Order: Fingerstick Blood Sugar; SPEC'M 11/27/16 02:54 Test: BEDSIDE GLUCOSE; Value: 90; Range: 70-105; Units: MG/DL; Status: F Outcome: 06:08 Discharge ordered by Provider. cs11 07:37 Discharge Assessment: Patient awake, alert and oriented x 3. No cognitive and/or hs1 functional deficits noted. Patient verbalized understanding of disposition instructions. patient administered narcotics - no. The following High Risk Discharge criteria are identified: None. Discharged to home ambulatory. Condition: stable. Discharge instructions given to patient, Instructed on discharge instructions, follow up and referral plans. medication usage, Demonstrated understanding of instructions, medications, Pt was receptive of discharge instructions/ teaching. No special radiology studies were completed. Property sent home with patient. 07:40 Patient left the ED. hs1 Signatures: Marcelle Galarza, RN RN kmg1 Devorah Cordova, Reg Reg Renita Roe RN RN hs1 Briana Mason, CHIEF CRNA CHIEF CRNA lillian Matthew Rouse, DO DO cs11 Dajuan, Ava [facility] Brianne Garcia, Reg Reg hs2 Nadine Lopez, CHIEF CRNA CHIEF CRNA cln Chart Complete MTDD
== END 2016-11-27 07:40 | disposition home or self-care (01) ==
LOC: M ED 02:25
DX: E86.9 Volume depletion, unspecified (principal); I95.1 Orthostatic hypotension; F17.290 Nicotine dependence, other tobacco product, uncomplicated

== ENCOUNTER 2016-12-05 16:27 | Emergency (ER) | payer OTHER ==
[2016-12-05 17:52] LABS: MEAN CORPUSCULAR HEMOGLOBIN 28.8 pg (27.0-33.0); MEAN CORPUSCULAR HGB CONC 34.1 g/dl (32.0-36.5); MEAN CORPUSCULAR VOLUME 84.6 fl (80.0-96.0); RED CELL DISTRIBUTION WIDTH 13.5 % (11.5-14.5); WHITE BLOOD COUNT 10.1 K/mm3 (4.0-10.0)
[2016-12-05 18:20] LABS: CONTROL LINE HCG INT CTR LINE PRESENT
[2016-12-05 18:24] LABS: ANION GAP 9 MEQ/L (8-16); BLOOD UREA NITROGEN 7 MG/DL (7-18); CALCIUM LEVEL 9.2 MG/DL (8.5-10.1); CARBON DIOXIDE LEVEL 27 MEQ/L (21-32); CHLORIDE LEVEL 106 MEQ/L (98-107); CREATININE FOR GFR 0.62 MG/DL (0.55-1.02); GLOMERULAR FILTRATION RATE > 60.0 (>60); GLUCOSE, FASTING 95 MG/DL (70-105); POTASSIUM SERUM 3.7 MEQ/L (3.5-5.1); SODIUM LEVEL 142 MEQ/L (136-145)
[2016-12-05] MEDS ORDERED: MECLIZINE 12.5 MG TAB As Ordered ONE (19:04)
[2016-12-05] MEDS ORDERED: ONDANSETRON 4MG/2ML VIAL (J2405) As Ordered ONE (19:04)
[2016-12-05 19:07] LABS: ALBUMIN 4.1 GM/DL (3.2-5.2)
[2016-12-05 19:16] LABS: ALT/SGPT 38 U/L (12-78); AST/SGOT 19 U/L (15-37)
[2016-12-05 19:17] LABS: ALBUMIN/GLOBULIN RATIO 1.08 (1.00-1.93); ALKALINE PHOSPHATASE 132 U/L (45-117); BILIRUBIN,DIRECT < 0.1 MG/DL (0.0-0.2); BILIRUBIN,TOTAL 0.4 MG/DL (0.2-1.0); TOTAL PROTEIN 7.9 GM/DL (6.4-8.2)
--- NOTE | 2016-12-05 20:14 | EDDOCDS ---
Physician Documentation [facility] Name: Melida Peoples Age: 21 yrs Sex: Female : 1995 Arrival Date: 12/05/2016 Time: 16:27 Bed I1 / M1 Private MD: EWA Baltazar Disposition: 12/05/16 19:56 Discharged to Home/Self Care. Impression: Syncope and collapse. - Condition is Stable. - Discharge Instructions: Near-Syncope, Syncope. - Medication Reconciliation, Local Pharmacy Hours form. - Follow up: EWA Baltazar; When: Call to arrange an appointment; Reason: Recheck today's complaints, Continuance of care. - Problem is an ongoing problem. - Symptoms are unchanged. Historical: - Allergies: No known drug Allergies; - Home Meds: 1. Zofran (as hydrochloride) 4 mg Oral tab 1 tabs 2. Dicyclomine Oral Unknown 3. Multiple Vitamins oral tab - PMHx: none; - PSHx: Cholecystectomy; Tonsillectomy; Adenoidectomy; - Social history: Smoking status: Patient uses tobacco products, light tobacco smoker. No barriers to communication noted, The patient speaks fluent Lebanese, Speaks appropriately for age, Preferred Language: Lebanese. - Family history: Not pertinent. - : The pt / caregiver states he / she is not on anticoagulants. Home medication list is obtained from the patient. - Exposure Risk Screening:: None identified. 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 3 in. (160.02 cm) (R); 17:41 BP 134 / 72 Supine; Pulse 88; Pulse Ox 98% on R/A; kr3 17:41 BP 136 / 76 Sitting; Pulse 92; Pulse Ox 97% on R/A; kr3 17:41 BP 152 / 97 Standing; Pulse 92; Pulse Ox 98% on R/A; kr3 20:09 BP 139 / 93; Pulse 66; Resp 18; Temp 97.6; Pulse Ox 100% ; ms18 16:29 Body Mass Index 40.74 (104.33 kg, 160.02 cm) dd6 MDM: 17:12 Orthostatic VS ordered. sd1 17:12 ECG WITH READING ER PHYS+CARDIAG ordered. EDMS 17:13 HCG,Serum Qualitative Ordered. EDMS 17:13 CBC Ordered. EDMS 17:13 MED Profile Ordered. EDMS 18:43 HCG,Serum Qualitative Reviewed. mo1 18:43 MED Profile Reviewed. mo1 18:43 CBC Reviewed. mo1 18:45 IV Saline Lock ordered. mo1 18:45 NS 0.9% 1000 ml IV at bolus once ordered. mo1 18:45 Meclizine 25 mg PO once ordered. mo1 18:45 Ondansetron 4 mg IVP once ordered. mo1 18:51 Financial registration complete. gb 18:52 CARDIAC MARKER PANEL Ordered. EDMS 18:52 C REACTIVE PROTEIN QUANTITATIV Ordered. EDMS 18:52 LIPASE Ordered. EDMS 18:52 LIVER PROFILE Ordered. EDMS 18:52 THYROID STIMULATING HORMONE Ordered. EDMS 19:30 THYROID STIMULATING HORMONE Reviewed. mo1 19:30 LIPASE Reviewed. mo1 19:31 CARDIAC MARKER PANEL Reviewed. mo1 19:31 MED Profile Reviewed. mo1 19:31 HCG,Serum Qualitative Reviewed. mo1 19:31 LIVER PROFILE Reviewed. mo1 19:31 C REACTIVE PROTEIN QUANTITATIV Reviewed. mo1 Administered Medications: 19:07 Drug: NS 0.9% 1000 ml [sodium chloride 0.9 % intravenous solution] Route: IV; Rate: srm bolus; Site: left antecubital; 20:12 Follow up: IV Status: Completed infusion; IV Intake: 600ml ms18 19:07 Drug: Ondansetron 4 mg [ondansetron HCl 2 mg/mL intravenous solution (2 mL)] Route: srm IVP; Site: left antecubital; 20:13 Follow up: Response: No Adverse Reaction ms18 19:10 Drug: Meclizine 25 mg [meclizine 12.5 mg tablet (2 tabs)] Route: PO; srm 20:13 Follow up: Response: No Adverse Reaction ms18 Signatures: Dispatcher [employer] EDMS Lynette Ball MD MD sd1 Devorah Cordova, Reg Reg gb Priscilla Juarez RN RN lf1 Moe Davis PA PA mo1 Makayla Lane RN RN ms18 Tamanna Prince RN srm The chart was reviewed and I authenticate all verbal orders and agree with the evaluation and treatment provided.Corrections: (The following items were deleted from the chart) 18:51 18:46 THYROID STIMULATING HORMONE+LAB ordered. EDMS EDMS 18:51 18:46 LIVER PROFILE+LAB ordered. EDMS EDMS 18:51 18:46 LIPASE+LAB ordered. EDMS EDMS 18:51 18:46 C REACTIVE PROTEIN QUANTITATIV+LAB ordered. EDMS EDMS 18:51 18:46 TROPONIN+LAB ordered. EDMS EDMS 18:51 18:46 CARDIAC INJURY PROFILE+LAB ordered. EDMS EDMS 19:58 18:46 URINALYSIS+LAB ordered. EDMS EDMS MTDD
--- NOTE | 2016-12-05 20:14 | EDDOCDS ---
Nurse's Notes [facility] Name: Melida Peoples Age: 21 yrs Sex: Female : 1995 Arrival Date: 12/05/2016 Time: 16:27 Bed I1 / M1 Private MD: Giovanny [facility] [place] Diagnosis: Syncope and collapse Presentation: 12/05 16:50 Presenting complaint: Patient states: Third visit this week for same complaint. States lf1 she has had multiple syncopal episodes after falling and hitting her head on the wall on Sunday. Pt reports that she was also seen at [facility] two days ago and had a CT scan and told to see her PCP to have an MRI, pt reports that she hasn't seen her PCP yet but the symptoms have worsened and she feels that she "has lost control of her face and hands". Today she was driving and felt she was going to pass out and pulled over. Pt reports frontal headache that is currently 10/10 with blurred vision and dizziness. Adult Sepsis Screening: The patient does not have new or worsening altered mentation. Patient's respiratory rate is less than 22. Systolic blood pressure is greater than 100. Patient has a qSOFA score of 0- Negative Sepsis Screen. Suicide/Homicide risk assessment- the patient denies having any suicidal and/or homicidal ideations and does not present with any other emotional, behavioral or mental health complaints. 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 Transition of care: patient was not received from another setting of care. 16:50 Acuity: SEAN Level 3 1 16:50 Method Of Arrival: Walkin/Carried/Asstd 1 16:57 Presenting complaint: Patient states: Pt also reports nausea. 1 Triage Assessment: 17:00 General: Appears in no apparent distress, comfortable, Behavior is cooperative. Pain: 1 Location: frontal headache Pain currently is 10 out of 10 on a pain scale. HIV screening NA for this visit Offered previously. Neurological: Level of Consciousness is awake, alert, obeys commands, Oriented to person, place, time, Gait is steady, Speech is normal, Facial symmetry appears normal, Reports headache. Respiratory: Respiratory effort is even, unlabored. GI: Reports nausea. Derm: Skin is normal. Injury Description: No known injury. 17:02 EENT: Reports nose bleeds. 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 Zofran (as hydrochloride) 4 mg Oral tab 1 tabs 2. Dicyclomine Oral Unknown 3. Multiple Vitamins oral tab - PMHx: none; - PSHx: Cholecystectomy; Tonsillectomy; Adenoidectomy; - Social history: Smoking status: Patient uses tobacco products, light tobacco smoker. No barriers to communication noted, The patient speaks fluent [place] Irish, Speaks appropriately for age, Preferred Language: Northern Irish. - Family history: Not pertinent. - : The pt / caregiver states he / she is not on anticoagulants. Home medication list is obtained from the patient. - Exposure Risk Screening:: None identified. Screenin:09 Screening information is obtained from the patient. Fall risk: No risks identified. ms18 Assistance ADL's: requires no assistance with activities of daily living. Abuse/DV Screen: The patient / caregiver reports he/she is: not in a situation that causes fear, pain or injury. Nutritional screening: No deficits noted. Advance Directives: There is no living will. home support is adequate. Assessment: 19:02 General: Appears in no apparent distress, Behavior is appropriate for age, cooperative. srm Neurological: Level of Consciousness is awake, alert, Oriented to person, place, time, Moves all extremities. Full function Speech is normal, Facial symmetry appears normal, Reports headache photophobia. Respiratory: No deficits noted. GI: Reports nausea. 20:09 General: Appears in no apparent distress, comfortable, obese, Behavior is. Pain: ms18 Location: head Pain currently is 5 out of 10 on a pain scale. Neurological: Level of Consciousness is awake, alert, obeys commands, Oriented to person, place, time. Cardiovascular: Rhythm is regular Chest pain is denied. Respiratory: Airway is patent Respiratory effort is even, unlabored. Derm: Skin is pink, warm & dry. normal. Vital Signs: 16:29 BP 129 / 74; Pulse 104; Resp 18 S; Temp 98.6(O); Pulse Ox 100% on R/A; Weight 104.33 kg dd6 (R); Height 5 ft. 3 in. (160.02 cm) (R); 17:41 BP 134 / 72 Supine; Pulse 88; Pulse Ox 98% on R/A; kr3 17:41 BP 136 / 76 Sitting; Pulse 92; Pulse Ox 97% on R/A; kr3 17:41 BP 152 / 97 Standing; Pulse 92; Pulse Ox 98% on R/A; kr3 20:09 BP 139 / 93; Pulse 66; Resp 18; Temp 97.6; Pulse Ox 100% ; ms18 16:29 Body Mass Index 40.74 (104.33 kg, 160.02 cm) dd6 Vitals: 16:29 Log In Time: December 05, 2016 at 16:27. dd6 20:13 Glucose Measurement done with blood work. ms18 ED Course: 16:28 Patient visited by Derick Vora, HANNAH. dd6 16:28 NEDA Baltazar is Private Physician. dd6 16:28 Patient moved to Waiting dd6 16:29 Patient moved to Pre RCE dd6 16:57 Triage Initiated lf1 17:26 Patient moved to PR2 / 26 mdr 17:37 Patient visited by David Thomas PCA. mdr 17:37 EKG done. (by ED staff). Reviewed by Lynette Ball MD. mdr 17:41 MED Profile Sent. kr3 17:41 CBC Sent. kr3 17:41 HCG,Serum Qualitative Sent. kr3 17:44 Patient moved to TR1 mdr 18:05 Patient moved to Triage 2 kr3 18:17 Moe Davis PA is PHCP. mo1 18:17 Lynette Ball MD is Attending Physician. mo1 18:31 Patient visited by Moe Davis PA. mo1 18:43 Patient moved to I1 / M1 kr3 19:01 Inserted saline lock: 20 gauge in left antecubital area and blood collected. srm 19:03 Patient visited by Tamanna Prince, ELIAZAR. srm 19:10 Patient visited by Tamanna Prince, ELIAZAR. srm 19:56 EWA Baltazar is Referral Physician. mo1 20:09 Patient visited by Makayla Lane RN. ms18 20:09 The patient / caregiver is instructed regarding the plan of care and ED course. Patient ms18 has correct armband on for positive identification. Property sent home with patient. :Personal belongings accompany Pt. 20:09 Discontinued IV lock intact, bleeding controlled, pressure dressing applied, No ms18 redness/swelling at site. No procedures done that require assistance. Administered Medications: 19:07 Drug: NS 0.9% 1000 ml [sodium chloride 0.9 % intravenous solution] Route: IV; Rate: srm bolus; Site: left antecubital; 20:12 Follow up: IV Status: Completed infusion; IV Intake: 600ml ms18 19:07 Drug: Ondansetron 4 mg [ondansetron HCl 2 mg/mL intravenous solution (2 mL)] Route: srm IVP; Site: left antecubital; 20:13 Follow up: Response: No Adverse Reaction ms18 19:10 Drug: Meclizine 25 mg [meclizine 12.5 mg tablet (2 tabs)] Route: PO; srm 20:13 Follow up: Response: No Adverse Reaction ms18 Intake: 20:12 IV: 600.00ml; Total: 600.00ml. ms18 Order Results: Lab Order: HCG,Serum Qualitative; SPEC'M 12/05/16 17:40 Test: HCG, SERUM QUALITATIVE; Value: NEGATIVE; Range: NEGATIVE; Status: F Lab Order: CBC; SPEC'M 12/05/16 17:40 Test: WHITE BLOOD COUNT; Value: 10.1; Range: 4.0-10.0; Abnormal: Above high normal; Units: K/mm3; Status: F Test: RED BLOOD COUNT; Value: 4.49; Range: 4.00-5.40; Units: M/mm3; Status: F Test: HEMOGLOBIN; Value: 12.9; Range: 12.0-16.0; Units: g/dl; Status: F Test: HEMATOCRIT; Value: 38.0; Range: 36.0-47.0; Units: %; Status: F Test: MEAN CORPUSCULAR VOLUME; Value: 84.6; Range: 80.0-96.0; Units: fl; Status: F Test: MEAN CORPUSCULAR HEMOGLOBIN; Value: 28.8; Range: 27.0-33.0; Units: pg; Status: F Test: MEAN CORPUSCULAR HGB CONC; Value: 34.1; Range: 32.0-36.5; Units: g/dl; Status: F Test: RED CELL DISTRIBUTION WIDTH; Value: 13.5; Range: 11.5-14.5; Units: %; Status: F Test: PLATELET COUNT, AUTOMATED; Value: 369; Range: 150-450; Units: k/mm3; Status: F Lab Order: [employer] [facility] 12/05/16 17:40 Test: GLUCOSE, FASTING; Value: 95; Range: 70-105; Units: MG/DL; Status: F Test: BLOOD UREA NITROGEN; Value: 7; Range: 7-18; Units: MG/DL; Status: F Test: CREATININE FOR GFR; Value: 0.62; Range: 0.55-1.02; Units: MG/DL; Status: F Test: SODIUM LEVEL; Range: 136-145; Units: MEQ/L; Status: I Test: POTASSIUM SERUM; Range: 3.5-5.1; Units: MEQ/L; Status: I Test: CHLORIDE LEVEL; Range: 98-107; Units: MEQ/L; Status: I Test: CARBON DIOXIDE LEVEL; Range: 21-32; Units: MEQ/L; Status: I Test: ANION GAP; Range: 8-16; Units: MEQ/L; Status: I Test: CALCIUM LEVEL; Range: 8.5-10.1; Units: MG/DL; Status: I Test: GLOMERULAR FILTRATION RATE; Value: > 60.0; Range: >60; Status: F Test: SODIUM LEVEL; Value: 142; Range: 136-145; Units: MEQ/L; Status: F Test: POTASSIUM SERUM; Value: 3.7; Range: 3.5-5.1; Units: MEQ/L; Status: F Test: CHLORIDE LEVEL; Value: 106; Range: 98-107; Units: MEQ/L; Status: F Test: CARBON DIOXIDE LEVEL; Value: 27; Range: 21-32; Units: MEQ/L; Status: F Test: ANION GAP; Value: 9; Range: 8-16; Units: MEQ/L; Status: F Test: CALCIUM LEVEL; Value: 9.2; Range: 8.5-10.1; Units: MG/DL; Status: F Test Note: ; Units are mL/min/1.73 m2 Chronic Kidney Disease Staging per NKF: Stage I & II GFR >=60 Normal to Mildly Decreased Stage III GFR 30-59 Moderately Decreased Stage IV GFR 15-29 Severely Decreased Stage V GFR <15 Very Little GFR Left ESRD GFR <15 on AIRCRAFT ENGINE SPECIALIST Lab Order: CARDIAC MARKER PANEL; [facility] 12/05/16 17:40 Test: CPK CREATINE PHOSPHOKINASE; Value: 93; Range: 26-192; Units: U/L; Status: F Test: CK-MB VALUE MASS; Value: 1.0; Range: 0.0-3.6; Units: NG/ML; Status: F Test: MB/CK RELATIVE INDEX; Value: 1.07; Range: < OR =4; Status: F Test: TROPONIN I; Value: < 0.02; Range: < 0.10; Units: NG/ML; Status: F Test Note: ; DIAGNOSIS CRITERIA MMB ng/ml Relative Index (RI) NON-AMI < or = 5 N/A [place] > 5 < or = 4 AMI > 5 > 4 Lab Order: C REACTIVE PROTEIN QUANTITATIV; [facility] 12/05/16 17:40 Test: C REACTIVE PROTEIN QUANTITATIV; Value: 0.62; Range: 0.00-0.30; Abnormal: Above high normal; Units: MG/DL; Status: F Lab Order: LIPASE; [facility] 12/05/16 17:40 Test: LIPASE; Value: 146; Range: 73-393; Units: U/L; Status: F Lab Order: LIVER PROFILE; [facility] 12/05/16 17:40 Test: AST/SGOT; Value: 19; Range: 15-37; Units: U/L; Status: F Test: ALT/SGPT; Value: 38; Range: 12-78; Units: U/L; Status: F Test: ALKALINE PHOSPHATASE; Value: 132; Range: 45-117; Abnormal: Above high normal; Units: U/L; Status: F Test: BILIRUBIN,TOTAL; Value: 0.4; Range: 0.2-1.0; Units: MG/DL; Status: F Test: BILIRUBIN,DIRECT; Value: < 0.1; Range: 0.0-0.2; Units: MG/DL; Status: F Test: TOTAL PROTEIN; Value: 7.9; Range: 6.4-8.2; Units: GM/DL; Status: F Test: ALBUMIN; Value: 4.1; Range: 3.2-5.2; Units: GM/DL; Status: F Test: ALBUMIN/GLOBULIN RATIO; Value: 1.08; Range: 1.00-1.93; Status: F Lab Order: THYROID STIMULATING HORMONE; SPEC'M 12/05/16 17:40 Test: THYROID STIMULATING HORMONE; Value: 1.110; Range: 0.358-3.740; Units: uIU/ML; Status: F Outcome: 19:56 Discharge ordered by Provider. mo1 20:09 Discharge Assessment: Patient awake, alert and oriented x 3. No cognitive and/or ms18 functional deficits noted. Patient verbalized understanding of disposition instructions. patient administered narcotics - no. The following High Risk Discharge criteria are identified: None. Discharged to home ambulatory. Condition: good Condition: stable Condition: improved. Discharge instructions given to patient, Instructed on discharge instructions, follow up and referral plans. Demonstrated understanding of instructions, Pt was receptive of discharge instructions/ teaching. No special radiology studies were completed. 20:13 Patient left the ED. ms18 Signatures: Tamanna Prince, RN RN Radha GambleRN RN [id number] Priscilla Juarez RN RN lf1 Derick Vora, DEVELOPMENTAL ELECTRONICS ASSEMBLER DEVELOPMENTAL ELECTRONICS ASSEMBLER dd6 Moe Davis PA PA mo1 Makayla Lane RN RN ms18 David Thomas, DEVELOPMENTAL ELECTRONICS ASSEMBLER DEVELOPMENTAL ELECTRONICS ASSEMBLER mdr MTDD
--- NOTE | 2016-12-05 20:30 | ECGEPIP ---
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
--- NOTE | 2016-12-07 21:15 | EDDOCDS ---
Nurse's Notes [facility] Name: Melida Peoples Age: 21 yrs Sex: Female : 1995 Arrival Date: 12/05/2016 Time: 16:27 Bed I1 / M1 Private MD: [facility] [place] Diagnosis: Syncope and collapse Presentation: 12/05 16:50 Presenting complaint: Patient states: Third visit this week for same complaint. States lf1 she has had multiple syncopal episodes after falling and hitting her head on the wall on Sunday. Pt reports that she was also seen at [place] two days ago and had a CT scan and told to see her PCP to have an MRI, pt reports that she hasn't seen her PCP yet but the symptoms have worsened and she feels that she "has lost control of her face and hands". Today she was driving and felt she was going to pass out and pulled over. Pt reports frontal headache that is currently 10/10 with blurred vision and dizziness. Adult Sepsis Screening: The patient does not have new or worsening altered mentation. Patient's respiratory rate is less than 22. Systolic blood pressure is greater than 100. Patient has a qSOFA score of 0- Negative Sepsis Screen. Suicide/Homicide risk assessment- the patient denies having any suicidal and/or homicidal ideations and does not present with any other emotional, behavioral or mental health complaints. 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 Transition of care: patient was not received from another setting of care. 16:50 Acuity: SEAN Level 3 1 16:50 Method Of Arrival: Walkin/Carried/Asstd 1 16:57 Presenting complaint: Patient states: Pt also reports nausea. 1 Triage Assessment: 17:00 General: Appears in no apparent distress, comfortable, Behavior is cooperative. Pain: 1 Location: frontal headache Pain currently is 10 out of 10 on a pain scale. HIV screening NA for this visit Offered previously. Neurological: Level of Consciousness is awake, alert, obeys commands, Oriented to person, place, time, Gait is steady, Speech is normal, Facial symmetry appears normal, Reports headache. Respiratory: Respiratory effort is even, unlabored. GI: Reports nausea. Derm: Skin is normal. Injury Description: No known injury. 17:02 EENT: Reports nose bleeds. 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 Zofran (as hydrochloride) 4 mg Oral tab 1 tabs 2. Dicyclomine Oral Unknown 3. Multiple Vitamins oral tab - PMHx: none; - PSHx: Cholecystectomy; Tonsillectomy; Adenoidectomy; - Social history: Smoking status: Patient uses tobacco products, light tobacco smoker. No barriers to communication noted, The patient speaks fluent Guatemalan, Speaks appropriately for age, Preferred Language: Guatemalan. - Family history: Not pertinent. - : The pt / caregiver states he / she is not on anticoagulants. Home medication list is obtained from the patient. - Exposure Risk Screening:: None identified. Screenin:09 Screening information is obtained from the patient. Fall risk: No risks identified. ms18 Assistance ADL's: requires no assistance with activities of daily living. Abuse/DV Screen: The patient / caregiver reports he/she is: not in a situation that causes fear, pain or injury. Nutritional screening: No deficits noted. Advance Directives: There is no living will. home support is adequate. Assessment: 19:02 General: Appears in no apparent distress, Behavior is appropriate for age, cooperative. srm Neurological: Level of Consciousness is awake, alert, Oriented to person, place, time, Moves all extremities. Full function Speech is normal, Facial symmetry appears normal, Reports headache photophobia. Respiratory: No deficits noted. GI: Reports nausea. 20:09 General: Appears in no apparent distress, comfortable, obese, Behavior is. Pain: ms18 Location: head Pain currently is 5 out of 10 on a pain scale. Neurological: Level of Consciousness is awake, alert, obeys commands, Oriented to person, place, time. Cardiovascular: Rhythm is regular Chest pain is denied. Respiratory: Airway is patent Respiratory effort is even, unlabored. Derm: Skin is pink, warm & dry. normal. Vital Signs: 16:29 BP 129 / 74; Pulse 104; Resp 18 S; Temp 98.6(O); Pulse Ox 100% on R/A; Weight 104.33 kg dd6 (R); Height 5 ft. 3 in. (160.02 cm) (R); 17:41 BP 134 / 72 Supine; Pulse 88; Pulse Ox 98% on R/A; kr3 17:41 BP 136 / 76 Sitting; Pulse 92; Pulse Ox 97% on R/A; kr3 17:41 BP 152 / 97 Standing; Pulse 92; Pulse Ox 98% on R/A; kr3 20:09 BP 139 / 93; Pulse 66; Resp 18; Temp 97.6; Pulse Ox 100% ; ms18 16:29 Body Mass Index 40.74 (104.33 kg, 160.02 cm) dd6 Vitals: 16:29 Log In Time: December 05, 2016 at 16:27. dd6 20:13 Glucose Measurement done with blood work. ms18 ED Course: 16:28 Patient visited by Derick Vora, HANNAH. dd6 16:28 NEDA Baltazar is Private Physician. dd6 16:28 Patient moved to Waiting dd6 16:29 Patient moved to Pre RCE dd6 16:57 Triage Initiated lf1 17:26 Patient moved to PR2 / 26 mdr 17:37 Patient visited by David Thomas PCA. mdr 17:37 EKG done. (by ED staff). Reviewed by Lynette Ball MD. mdr 17:41 MED Profile Sent. kr3 17:41 CBC Sent. kr3 17:41 HCG,Serum Qualitative Sent. kr3 17:44 Patient moved to TR1 mdr 18:05 Patient moved to Triage 2 kr3 18:17 Moe Davis PA is PHCP. mo1 18:17 Lynette Ball MD is Attending Physician. mo1 18:31 Patient visited by Moe Davis PA. mo1 18:43 Patient moved to I1 / M1 kr3 19:01 Inserted saline lock: 20 gauge in left antecubital area and blood collected. srm 19:03 Patient visited by Tamanna Prince, ELIAZAR. srm 19:10 Patient visited by Tamanna Prince, ELIAZAR. srm 19:56 EWA Baltazar is Referral Physician. mo1 20:09 Patient visited by Makayla Lane RN. ms18 20:09 The patient / caregiver is instructed regarding the plan of care and ED course. Patient ms18 has correct armband on for positive identification. Property sent home with patient. :Personal belongings accompany Pt. 20:09 Discontinued IV lock intact, bleeding controlled, pressure dressing applied, No ms18 redness/swelling at site. No procedures done that require assistance. 20:26 [facility] Payment Agreement was scanned into [employer] and attached to record. gb 21:17 EKG-ADULT Returned. EDMS 12/06 02:56 T-Sheet-- Draft Copy was scanned into [employer] and attached to record. hs2 09:19 ECG/EKG was scanned into [employer] and attached to record. gb Administered Medications: 12/05 19:07 Drug: NS 0.9% 1000 ml [sodium chloride 0.9 % intravenous solution] Route: IV; Rate: srm bolus; Site: left antecubital; 20:12 Follow up: IV Status: Completed infusion; IV Intake: 600ml ms18 19:07 Drug: Ondansetron 4 mg [ondansetron HCl 2 mg/mL intravenous solution (2 mL)] Route: srm IVP; Site: left antecubital; 20:13 Follow up: Response: No Adverse Reaction ms18 19:10 Drug: Meclizine 25 mg [meclizine 12.5 mg tablet (2 tabs)] Route: PO; srm 20:13 Follow up: Response: No Adverse Reaction ms18 Intake: 20:12 IV: 600.00ml; Total: 600.00ml. ms18 Order Results: Lab Order: HCG,Serum Qualitative; SPEC'M 12/05/16 17:40 Test: HCG, SERUM QUALITATIVE; Value: NEGATIVE; Range: NEGATIVE; Status: F Lab Order: CBC; SPEC'M 12/05/16 17:40 Test: WHITE BLOOD COUNT; Value: 10.1; Range: 4.0-10.0; Abnormal: Above high normal; Units: K/mm3; Status: F Test: RED BLOOD COUNT; Value: 4.49; Range: 4.00-5.40; Units: M/mm3; Status: F Test: HEMOGLOBIN; Value: 12.9; Range: 12.0-16.0; Units: g/dl; Status: F Test: HEMATOCRIT; Value: 38.0; Range: 36.0-47.0; Units: %; Status: F Test: MEAN CORPUSCULAR VOLUME; Value: 84.6; Range: 80.0-96.0; Units: fl; Status: F Test: MEAN CORPUSCULAR HEMOGLOBIN; Value: 28.8; Range: 27.0-33.0; Units: pg; Status: F Test: MEAN CORPUSCULAR HGB CONC; Value: 34.1; Range: 32.0-36.5; Units: g/dl; Status: F Test: RED CELL DISTRIBUTION WIDTH; Value: 13.5; Range: 11.5-14.5; Units: %; Status: F Test: PLATELET COUNT, AUTOMATED; Value: 369; Range: 150-450; Units: k/mm3; Status: F Lab Order: MED Profile; SPEC'M 12/05/16 17:40 Test: GLUCOSE, FASTING; Value: 95; Range: 70-105; Units: MG/DL; Status: F Test: BLOOD UREA NITROGEN; Value: 7; Range: 7-18; Units: MG/DL; Status: F Test: CREATININE FOR GFR; Value: 0.62; Range: 0.55-1.02; Units: MG/DL; Status: F Test: SODIUM LEVEL; Range: 136-145; Units: MEQ/L; Status: I Test: POTASSIUM SERUM; Range: 3.5-5.1; Units: MEQ/L; Status: I Test: CHLORIDE LEVEL; Range: 98-107; Units: MEQ/L; Status: I Test: CARBON DIOXIDE LEVEL; Range: 21-32; Units: MEQ/L; Status: I Test: ANION GAP; Range: 8-16; Units: MEQ/L; Status: I Test: CALCIUM LEVEL; Range: 8.5-10.1; Units: MG/DL; Status: I Test: GLOMERULAR FILTRATION RATE; Value: > 60.0; Range: >60; Status: F Test: SODIUM LEVEL; Value: 142; Range: 136-145; Units: MEQ/L; Status: F Test: POTASSIUM SERUM; Value: 3.7; Range: 3.5-5.1; Units: MEQ/L; Status: F Test: CHLORIDE LEVEL; Value: 106; Range: 98-107; Units: MEQ/L; Status: F Test: CARBON DIOXIDE LEVEL; Value: 27; Range: 21-32; Units: MEQ/L; Status: F Test: ANION GAP; Value: 9; Range: 8-16; Units: MEQ/L; Status: F Test: CALCIUM LEVEL; Value: 9.2; Range: 8.5-10.1; Units: MG/DL; Status: F Test Note: ; Units are mL/min/1.73 m2 Chronic Kidney Disease Staging per NKF: Stage I & II GFR >=60 Normal to Mildly Decreased Stage III GFR 30-59 Moderately Decreased Stage IV GFR 15-29 Severely Decreased Stage V GFR <15 Very Little GFR Left ESRD GFR <15 on HAIR DRESSER Lab Order: CARDIAC MARKER PANEL; [facility] 12/05/16 17:40 Test: CPK CREATINE PHOSPHOKINASE; Value: 93; Range: 26-192; Units: U/L; Status: F Test: CK-MB VALUE MASS; Value: 1.0; Range: 0.0-3.6; Units: NG/ML; Status: F Test: MB/CK RELATIVE INDEX; Value: 1.07; Range: < OR =4; Status: F Test: TROPONIN I; Value: < 0.02; Range: < 0.10; Units: NG/ML; Status: F Test Note: ; DIAGNOSIS CRITERIA MMB ng/ml Relative Index (RI) NON-AMI < or = 5 N/A [place] > 5 < or = 4 AMI > 5 > 4 Lab Order: C REACTIVE PROTEIN QUANTITATIV; [facility] 12/05/16 17:40 Test: C REACTIVE PROTEIN QUANTITATIV; Value: 0.62; Range: 0.00-0.30; Abnormal: Above high normal; Units: MG/DL; Status: F Lab Order: LIPASE; [facility] 12/05/16 17:40 Test: LIPASE; Value: 146; Range: 73-393; Units: U/L; Status: F Lab Order: LIVER PROFILE; [facility] 12/05/16 17:40 Test: AST/SGOT; Value: 19; Range: 15-37; Units: U/L; Status: F Test: ALT/SGPT; Value: 38; Range: 12-78; Units: U/L; Status: F Test: ALKALINE PHOSPHATASE; Value: 132; Range: 45-117; Abnormal: Above high normal; Units: U/L; Status: F Test: BILIRUBIN,TOTAL; Value: 0.4; Range: 0.2-1.0; Units: MG/DL; Status: F Test: BILIRUBIN,DIRECT; Value: < 0.1; Range: 0.0-0.2; Units: MG/DL; Status: F Test: TOTAL PROTEIN; Value: 7.9; Range: 6.4-8.2; Units: GM/DL; Status: F Test: ALBUMIN; Value: 4.1; Range: 3.2-5.2; Units: GM/DL; Status: F Test: ALBUMIN/GLOBULIN RATIO; Value: 1.08; Range: 1.00-1.93; Status: F Lab Order: THYROID STIMULATING HORMONE; SPEC'M 12/05/16 17:40 Test: THYROID STIMULATING HORMONE; Value: 1.110; Range: 0.358-3.740; Units: uIU/ML; Status: F Radiology Order: EKG-ADULT Test: EKG-ADULT REASON FOR EXAMINATION: Syncope; Stationary ECG Study; [facility] - ED; ; Test Date: 2016-12-05; Pat Name: MELIDA PEOPLES Department:; Room: -; 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 mo1 20:09 Discharge Assessment: Patient awake, alert and oriented x 3. No cognitive and/or ms18 functional deficits noted. Patient verbalized understanding of disposition instructions. patient administered narcotics - no. The following High Risk Discharge criteria are identified: None. Discharged to home ambulatory. Condition: good Condition: stable Condition: improved. Discharge instructions given to patient, Instructed on discharge instructions, follow up and referral plans. Demonstrated understanding of instructions, Pt was receptive of discharge instructions/ teaching. No special radiology studies were completed. 20:13 Patient left the ED. ms18 Signatures: Dispatcher [employer] EDMS Tamanna rPince RN RN srm Barnhardt, Gloria, Reg Reg gb RobieRadha,RN RN kr3 Larry,Priscilla,RN RN lf1 Derick Vora, SENIOR BENEFITS ANALYST SENIOR BENEFITS ANALYST dd6 Moe Davis, HAWK sim1 Makayla LaneRN RN ms18 David Thomas, SENIOR BENEFITS ANALYST SENIOR BENEFITS ANALYST mdr Brianne Garcia, Reg Reg hs2 Chart Complete MTDD
--- NOTE | 2016-12-07 21:15 | EDDOCDS ---
Physician Documentation [facility] Name: Melida Peoples Age: 21 yrs Sex: Female : 1995 Arrival Date: 12/05/2016 Time: 16:27 Bed I1 / M1 Private MD: EWA Baltazar Disposition: 12/05/16 19:56 Discharged to Home/Self Care. Impression: Syncope and collapse. - Condition is Stable. - Discharge Instructions: Near-Syncope, Syncope. - Medication Reconciliation, Local Pharmacy Hours form. - Follow up: EWA Baltazar; When: Call to arrange an appointment; Reason: Recheck today's complaints, Continuance of care. - Problem is an ongoing problem. - Symptoms are unchanged. Historical: - Allergies: No known drug Allergies; - Home Meds: 1. Zofran (as hydrochloride) 4 mg Oral tab 1 tabs 2. Dicyclomine Oral Unknown 3. Multiple Vitamins oral tab - PMHx: none; - PSHx: Cholecystectomy; Tonsillectomy; Adenoidectomy; - Social history: Smoking status: Patient uses tobacco products, light tobacco smoker. No barriers to communication noted, The patient speaks fluent [place], Speaks appropriately for age, Preferred Language: Citizen [place]. - Family history: Not pertinent. - : The pt / caregiver states he / she is not on anticoagulants. Home medication list is obtained from the patient. - Exposure Risk Screening:: None identified. 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 3 in. (160.02 cm) (R); 17:41 BP 134 / 72 Supine; Pulse 88; Pulse Ox 98% on R/A; kr3 17:41 BP 136 / 76 Sitting; Pulse 92; Pulse Ox 97% on R/A; kr3 17:41 BP 152 / 97 Standing; Pulse 92; Pulse Ox 98% on R/A; kr3 20:09 BP 139 / 93; Pulse 66; Resp 18; Temp 97.6; Pulse Ox 100% ; ms18 16:29 Body Mass Index 40.74 (104.33 kg, 160.02 cm) dd6 MDM: 17:12 Orthostatic VS ordered. sd1 17:12 ECG WITH READING ER PHYS+CARDIAG ordered. EDMS 17:13 HCG,Serum Qualitative Ordered. EDMS 17:13 CBC Ordered. EDMS 17:13 MED Profile Ordered. EDMS 18:43 HCG,Serum Qualitative Reviewed. mo1 18:43 MED Profile Reviewed. mo1 18:43 CBC Reviewed. mo1 18:45 IV Saline Lock ordered. mo1 18:45 NS 0.9% 1000 ml IV at bolus once ordered. mo1 18:45 Meclizine 25 mg PO once ordered. mo1 18:45 Ondansetron 4 mg IVP once ordered. mo1 18:51 Financial registration complete. gb 18:52 CARDIAC MARKER PANEL Ordered. EDMS 18:52 C REACTIVE PROTEIN QUANTITATIV Ordered. EDMS 18:52 LIPASE Ordered. EDMS 18:52 LIVER PROFILE Ordered. EDMS 18:52 THYROID STIMULATING HORMONE Ordered. EDMS 19:30 THYROID STIMULATING HORMONE Reviewed. mo1 19:30 LIPASE Reviewed. mo1 19:31 CARDIAC MARKER PANEL Reviewed. mo1 19:31 MED Profile Reviewed. mo1 19:31 HCG,Serum Qualitative Reviewed. mo1 19:31 LIVER PROFILE Reviewed. mo1 19:31 C REACTIVE PROTEIN QUANTITATIV Reviewed. mo1 20:26 [facility] [place] Agreement was scanned into [employer] and attached to record. gb 12/06 02:56 T-Sheet-- Draft Copy was scanned into [employer] and attached to record. hs2 09:19 ECG/EKG was scanned into [employer] and attached to record. gb Administered Medications: 12/05 19:07 Drug: NS 0.9% 1000 ml [sodium chloride 0.9 % intravenous solution] Route: IV; Rate: srm bolus; Site: left antecubital; 20:12 Follow up: IV Status: Completed infusion; IV Intake: 600ml ms18 19:07 Drug: Ondansetron 4 mg [ondansetron HCl 2 mg/mL intravenous solution (2 mL)] Route: srm IVP; Site: left antecubital; 20:13 Follow up: Response: No Adverse Reaction ms18 19:10 Drug: Meclizine 25 mg [meclizine 12.5 mg tablet (2 tabs)] Route: PO; srm 20:13 Follow up: Response: No Adverse Reaction ms18 Signatures: Dispatcher [employer] EDMS Lynette Ball MD MD sd1 Devorah Cordova, Reg Reg gb Priscilla Juarez,RN RN lf1 Moe Davis PA PA mo1 Makayla LaneRN RN ms18 Brianne Garcia, Reg Reg hs2 Tamanna Prince RN srm The chart was reviewed and I authenticate all verbal orders and agree with the evaluation and treatment provided.Corrections: (The following items were deleted from the chart) 18:51 18:46 THYROID STIMULATING HORMONE+LAB ordered. EDMS EDMS 18:51 18:46 LIVER PROFILE+LAB ordered. EDMS EDMS 18:51 18:46 LIPASE+LAB ordered. EDMS EDMS 18:51 18:46 C REACTIVE PROTEIN QUANTITATIV+LAB ordered. EDMS EDMS 18:51 18:46 TROPONIN+LAB ordered. EDMS EDMS 18:51 18:46 CARDIAC INJURY PROFILE+LAB ordered. EDMS EDMS 19:58 18:46 URINALYSIS+LAB ordered. EDMS EDMS Attachments: 20:26 [facility] Payment Agreement gb 12/06 02:56 T-Sheet-- Draft Copy hs2 09:19 ECG/EKG Chart Complete MTDD
--- NOTE | 2016-12-07 21:15 | EDDOCDS ---
Physician Documentation [facility] Name: Melida Peoples Age: 21 yrs Sex: Female : 1995 Arrival Date: 12/05/2016 Time: 16:27 Bed I1 / M1 Private MD: EWA Baltazar Disposition: 12/05/16 19:56 Discharged to Home/Self Care. Impression: Syncope and collapse. - Condition is Stable. - Discharge Instructions: Near-Syncope, Syncope. - Medication Reconciliation, Local Pharmacy Hours form. - Follow up: EWA Baltazar; When: Call to arrange an appointment; Reason: Recheck today's complaints, Continuance of care. - Problem is an ongoing problem. - Symptoms are unchanged. Historical: - Allergies: No known drug Allergies; - Home Meds: 1. Zofran (as hydrochloride) 4 mg Oral tab 1 tabs 2. Dicyclomine Oral Unknown 3. Multiple Vitamins oral tab - PMHx: none; - PSHx: Cholecystectomy; Tonsillectomy; Adenoidectomy; - Social history: Smoking status: Patient uses tobacco products, light tobacco smoker. No barriers to communication noted, The patient speaks fluent Niuean, Speaks appropriately for age, Preferred Language: Niuean. - Family history: Not pertinent. - : The pt / caregiver states he / she is not on anticoagulants. Home medication list is obtained from the patient. - Exposure Risk Screening:: None identified. 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 3 in. (160.02 cm) (R); 17:41 BP 134 / 72 Supine; Pulse 88; Pulse Ox 98% on R/A; kr3 17:41 BP 136 / 76 Sitting; Pulse 92; Pulse Ox 97% on R/A; kr3 17:41 BP 152 / 97 Standing; Pulse 92; Pulse Ox 98% on R/A; kr3 20:09 BP 139 / 93; Pulse 66; Resp 18; Temp 97.6; Pulse Ox 100% ; ms18 16:29 Body Mass Index 40.74 (104.33 kg, 160.02 cm) dd6 MDM: 17:12 Orthostatic VS ordered. sd1 17:12 ECG WITH READING ER PHYS+CARDIAG ordered. EDMS 17:13 HCG,Serum Qualitative Ordered. EDMS 17:13 CBC Ordered. EDMS 17:13 MED Profile Ordered. EDMS 18:43 HCG,Serum Qualitative Reviewed. mo1 18:43 MED Profile Reviewed. mo1 18:43 CBC Reviewed. mo1 18:45 IV Saline Lock ordered. mo1 18:45 NS 0.9% 1000 ml IV at bolus once ordered. mo1 18:45 Meclizine 25 mg PO once ordered. mo1 18:45 Ondansetron 4 mg IVP once ordered. mo1 18:51 Financial registration complete. gb 18:52 CARDIAC MARKER PANEL Ordered. EDMS 18:52 C REACTIVE PROTEIN QUANTITATIV Ordered. EDMS 18:52 LIPASE Ordered. EDMS 18:52 LIVER PROFILE Ordered. EDMS 18:52 THYROID STIMULATING HORMONE Ordered. EDMS 19:30 THYROID STIMULATING HORMONE Reviewed. mo1 19:30 LIPASE Reviewed. mo1 19:31 CARDIAC MARKER PANEL Reviewed. mo1 19:31 MED Profile Reviewed. mo1 19:31 HCG,Serum Qualitative Reviewed. mo1 19:31 LIVER PROFILE Reviewed. mo1 19:31 C REACTIVE PROTEIN QUANTITATIV Reviewed. mo1 20:26 [facility] [place] was scanned into [employer] and attached to record. gb 12/06 02:56 T-Sheet-- Draft Copy was scanned into [employer] and attached to record. hs2 09:19 ECG/EKG was scanned into [employer] and attached to record. gb Administered Medications: 12/05 19:07 Drug: NS 0.9% 1000 ml [sodium chloride 0.9 % intravenous solution] Route: IV; Rate: srm bolus; Site: left antecubital; 20:12 Follow up: IV Status: Completed infusion; IV Intake: 600ml ms18 19:07 Drug: Ondansetron 4 mg [ondansetron HCl 2 mg/mL intravenous solution (2 mL)] Route: srm IVP; Site: left antecubital; 20:13 Follow up: Response: No Adverse Reaction ms18 19:10 Drug: Meclizine 25 mg [meclizine 12.5 mg tablet (2 tabs)] Route: PO; srm 20:13 Follow up: Response: No Adverse Reaction ms18 Signatures: Dispatcher [employer] EDMS Lynette Ball MD MD sd1 Devorah Cordova, Reg Reg gb Priscilla Juarez,RN RN lf1 Moe Davis PA PA mo1 Makayla LaneRN RN ms18 Brianne Garcia, Reg Reg hs2 Tamanna Prince RN srm The chart was reviewed and I authenticate all verbal orders and agree with the evaluation and treatment provided.Corrections: (The following items were deleted from the chart) 18:51 18:46 THYROID STIMULATING HORMONE+LAB ordered. EDMS EDMS 18:51 18:46 LIVER PROFILE+LAB ordered. EDMS EDMS 18:51 18:46 LIPASE+LAB ordered. EDMS EDMS 18:51 18:46 C REACTIVE PROTEIN QUANTITATIV+LAB ordered. EDMS EDMS 18:51 18:46 TROPONIN+LAB ordered. EDMS EDMS 18:51 18:46 CARDIAC INJURY PROFILE+LAB ordered. EDMS EDMS 19:58 18:46 URINALYSIS+LAB ordered. EDMS EDMS Attachments: 20:26 [facility] Payment Agreement gb 12/06 02:56 T-Sheet-- Draft Copy hs2 09:19 ECG/EKG Chart Complete MTDD
== END 2016-12-05 20:13 | disposition home or self-care (01) ==
LOC: M ED 16:27
DX: R55 Syncope and collapse (principal); R42 Dizziness and giddiness; F17.200 Nicotine dependence, unspecified, uncomplicated; Z79.899 Other long term (current) drug therapy
CPT/HCPCS: 36415; 80048; 80076; 82550; 82553; 83690; 84443; 84703; 85027; 86140; 93005; 96361; 96374; 99284; J2405

== ENCOUNTER → 2017-01-31 | Outpatient (CLI) | payer OTHER ==
[~2017-01-31] VITALS: Ht 160 cm; Wt 105.2 kg
[~2017-01-31] MED LIST: BENT10CA PO; LIDOCAINE 2% INJ 100 MG/5 ML SDV (FOR ANES.) As Ordered ONE; META0.52 PO; NS 1,000 ML IV SCH; PROPOFOL 200 MG/20 ML VIAL As Ordered ONE; ZOFR20TA PO; fentaNYL 100 MCG/2 ML INJECTION (J3010) As Ordered ONE
--- NOTE | 2017-01-31 10:59 | ROOR ---
Patient Name: Melida Peoples Procedure Date: 01/31/2017 10:28 AM Date of : 1995 Age: 21 Room: [facility] Gender: Female Note Status: Finalized Procedure: Upper GI endoscopy Indications: Heartburn Providers: DO Enio Hoang MD: BOAZ SANDRA MD Requesting Provider: Medicines: Propofol per Anesthesia Complications: No immediate complications. Procedure: Pre-Anesthesia Assessment: - Prior to the procedure, a History and Physical was performed, and patient medications and allergies were reviewed. The patient is competent. The risks and benefits of the procedure and the sedation options and risks were discussed with the patient. All questions were answered and informed consent was obtained. Patient identification and proposed procedure were verified by the physician, the nurse, the anesthesiologist and the nuclear plant instrument technician in the endoscopy suite. Mental Status Examination: alert and oriented. Airway Examination: normal oropharyngeal airway and neck mobility. Respiratory Examination: clear to auscultation. CV Examination: normal. Prophylactic Antibiotics: The patient does not require prophylactic antibiotics. Prior Anticoagulants: The patient has taken no previous anticoagulant or antiplatelet agents. ASA Grade Assessment: II - A patient with mild systemic disease. After reviewing the risks and benefits, the patient was deemed in satisfactory condition to undergo the procedure. The anesthesia plan was to use monitored anesthesia care (MAC). Immediately prior to administration of medications, the patient was re-assessed for adequacy to receive sedatives. The heart rate, respiratory rate, oxygen saturations, blood pressure, adequacy of pulmonary ventilation, and response to care were monitored throughout the procedure. The physical status of the patient was re-assessed after the procedure. The Endoscope was introduced through the mouth, and advanced to the second part of duodenum. The upper GI endoscopy was accomplished without difficulty. The patient tolerated the procedure well. Findings: The exam was otherwise without abnormality. Biopsies were taken with a cold forceps in the prepyloric region of the stomach for Helicobacter pylori testing. Estimated blood loss was minimal. Impression: - The examination was otherwise normal. - Biopsies were taken with a cold forceps for Helicobacter pylori testing. Recommendation: - Patient has a contact number available for emergencies. The signs and symptoms of potential delayed complications were discussed with the patient. Return to normal activities tomorrow. Written discharge instructions were provided to the patient. - Await pathology results. Redd Emery DO 01/31/2017 10:58:59 AM This report has been signed electronically. Number of Addenda: 0 Note Initiated On: 01/31/2017 10:28 AM Estimated Blood Loss: Estimated blood loss was minimal.
--- NOTE | 2017-01-31 11:00 | ROOR ---
Patient Name: Melida Peoples Procedure Date: 01/31/2017 10:29 AM Date of : 1995 Age: 21 Room: [facility] Gender: Female Note Status: Finalized Procedure: Colonoscopy Indications: Lower abdominal pain, Clinically significant diarrhea of unexplained origin Providers: DO Enio Hoang MD: BOAZ SANDRA MD Requesting Provider: Medicines: Propofol per Anesthesia Complications: No immediate complications. Procedure: Pre-Anesthesia Assessment: - Prior to the procedure, a History and Physical was performed, and patient medications and allergies were reviewed. The patient is competent. The risks and benefits of the procedure and the sedation options and risks were discussed with the patient. All questions were answered and informed consent was obtained. Patient identification and proposed procedure were verified by the physician, the nurse, the anesthesiologist and the wafer fabrication technician in the endoscopy suite. Mental Status Examination: alert and oriented. Airway Examination: normal oropharyngeal airway and neck mobility. Respiratory Examination: clear to auscultation. CV Examination: normal. Prophylactic Antibiotics: The patient does not require prophylactic antibiotics. Prior Anticoagulants: The patient has taken no previous anticoagulant or antiplatelet agents. ASA Grade Assessment: II - A patient with mild systemic disease. After reviewing the risks and benefits, the patient was deemed in satisfactory condition to undergo the procedure. The anesthesia plan was to use monitored anesthesia care (MAC). Immediately prior to administration of medications, the patient was re-assessed for adequacy to receive sedatives. The heart rate, respiratory rate, oxygen saturations, blood pressure, adequacy of pulmonary ventilation, and response to care were monitored throughout the procedure. The physical status of the patient was re-assessed after the procedure. The Colonoscope was introduced through the anus and advanced to the cecum, identified by the appendiceal orifice, ileocecal valve and palpation. The colonoscopy was performed without difficulty. The patient tolerated the procedure well. Findings: The entire examined colon appeared normal on direct and retroflexion views. Impression: - The entire examined colon is normal on direct and retroflexion views. - No specimens collected. Recommendation: - Patient has a contact number available for emergencies. The signs and symptoms of potential delayed complications were discussed with the patient. Return to normal activities tomorrow. Written discharge instructions were provided to the patient. - Repeat colonoscopy at age 48 for screening purposes. Redd Emery DO 01/31/2017 11:00:27 AM This report has been signed electronically. Number of Addenda: 0 Note Initiated On: 01/31/2017 10:29 AM Estimated Blood Loss: Estimated blood loss: none.
[2017-01-31 11:30] VITALS: BP 127/71
== END | disposition home or self-care (01) ==
LOC: M OPP 09:06
PROVIDERS: ATTEND Surgery
DX: R19.7 Diarrhea, unspecified (principal); R10.84 Generalized abdominal pain; R12 Heartburn; Z87.19 Personal history of other diseases of the digestive system; K21.9 Gastro-esophageal reflux disease without esophagitis; F41.9 Anxiety disorder, unspecified; F32.9 Major depressive disorder, single episode, unspecified; R06.83 Snoring; R06.02 Shortness of breath; F17.290 Nicotine dependence, other tobacco product, uncomplicated; Z79.899 Other long term (current) drug therapy
CPT/HCPCS: 43239; 45378; 88305; 99156; 99157; J3010

== ENCOUNTER 2017-06-18 10:37 | Emergency (ER) | payer OTHER ==
[~2017-06-18] VITALS: Ht 160 cm; Wt 104.6 kg
[~2017-06-18 10:37] MED LIST changes: -LIDOCAINE 2% INJ 100 MG/5 ML SDV (FOR ANES.) As Ordered ONE; -NS 1,000 ML IV SCH; -PROPOFOL 200 MG/20 ML VIAL As Ordered ONE; -fentaNYL 100 MCG/2 ML INJECTION (J3010) As Ordered ONE
[2017-06-18] MEDS ORDERED: DULO1CAP2 (10:54)
[2017-06-18] MEDS ORDERED: METR1TAB66 (10:54)
[2017-06-18] MEDS ORDERED: PRED20TA (10:54)
[2017-06-18] MEDS ORDERED: METO1TAB32 (10:54)
[2017-06-18] MEDS ORDERED: CIPR500T3 (10:54)
[2017-06-18] MEDS ORDERED: NS 1,000 ML IV ONE (12:15)
[2017-06-18 13:04] LABS: BASO # 0.1 K/mm3 (0.0-0.2); BASO % 0.4 % (0.0-1.0); EOS % 0.4 % (0.0-3.0); LARGE UNSTAINED CELL # 0.1 K/mm3 (0.0-0.4); LARGE UNSTAINED CELL % 0.8 % (0.0-4.0); LYMPH # 4.6 K/mm3 (1.5-6.5); MEAN CORPUSCULAR HEMOGLOBIN 29.3 pg (27.0-33.0); MEAN CORPUSCULAR HGB CONC 34.1 g/dl (32.0-36.5); MEAN CORPUSCULAR VOLUME 85.9 fl (80.0-96.0); MONO # 0.7 K/mm3 (0.0-0.8); NEUTROPHILS % 62.4 % (36.0-66.0); PLATELET COUNT, AUTOMATED 386 k/mm3 (150-450); WHITE BLOOD COUNT 14.5 K/mm3 (4.0-10.0)
[2017-06-18 13:33] LABS: ALBUMIN 3.8 GM/DL (3.2-5.2); ALBUMIN/GLOBULIN RATIO 0.88 (1.00-1.93); ALKALINE PHOSPHATASE 118 U/L (45-117); ALT/SGPT 35 U/L (12-78); ANION GAP 8 MEQ/L (8-16); AST/SGOT 17 U/L (15-37); BILIRUBIN,DIRECT < 0.1 MG/DL (0.0-0.2); BILIRUBIN,TOTAL 0.3 MG/DL (0.2-1.0); BLOOD UREA NITROGEN 14 MG/DL (7-18); CALCIUM LEVEL 9.1 MG/DL (8.5-10.1); CARBON DIOXIDE LEVEL 26 MEQ/L (21-32); CHLORIDE LEVEL 108 MEQ/L (98-107); GLOMERULAR FILTRATION RATE > 60.0 (>60); GLUCOSE, FASTING 89 MG/DL (70-105); MAGNESIUM LEVEL 2.2 MG/DL (1.8-2.4); POTASSIUM SERUM 3.4 MEQ/L (3.5-5.1); SODIUM LEVEL 142 MEQ/L (136-145); T UPTAKE 30 % (30-39); THYROXINE (T4) 9.5 UG/DL (4.5-12.0); TOTAL PROTEIN 8.1 GM/DL (6.4-8.2)
[2017-06-18] MEDS ORDERED: MORPHINE 4 MG/ML 1ML SYRINGE IV ONE (13:45)
--- NOTE | 2017-06-18 13:46 | REP ---
ABDOMEN, FLAT AND UPRIGHT, PA CHEST: HISTORY: Abdominal pain. COMPARISON: 06/17/2017. A small amount of air is present in small and large intestine. There are no air fluid levels or dilated loops of intestine. There is no pneumoperitoneum. Surgical clips are present in the right upper quadrant. The lungs are clear. IMPRESSION: Nonspecific bowel gas pattern. Signed by Sridhar Smith MD 06/18/2017 02:02 P
[2017-06-18] MEDS ORDERED: PRIL20CA9 PO (14:54)
[2017-06-18] MEDS ORDERED: ZOFR4TAB3 PO (14:54)
[2017-06-18] MEDS ORDERED: ONDANSETRON 4MG/2ML VIAL (J2405) IV ONE (15:00)
[2017-06-18 15:13] VITALS: BP 126/78
--- NOTE | 2017-06-19 10:33 | ECGEPIP ---
Stationary ECG Study 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 Order Number: [id number] Reading MD: Lynette Ball Measurements Intervals [place] Rate: 80 P: 52 AK: 143 QRS: 43 QRSD: 88 T: 37 QT: 366 QTc: 422 Interpretive Statements SINUS RHYTHM WITH MARKED SINUS ARRHYTHMIA SIMILAR 12/05/16 Electronically Signed On 06-19-2017 10:32:57 EDT by Lynette Ball
== END 2017-06-18 15:37 | disposition home or self-care (01) ==
LOC: M ED 10:37
DX: D72.819 Decreased white blood cell count, unspecified (principal); G89.29 Other chronic pain; R10.9 Unspecified abdominal pain; F17.210 Nicotine dependence, cigarettes, uncomplicated; Z79.899 Other long term (current) drug therapy
CPT/HCPCS: 36415; 74022; 80048; 80076; 81025; 83690; 83735; 84436; 84443; 84479; 85025; 85379; 93005; 93041; 96361; 96374; 96375; 99285; J2405

== ENCOUNTER 2017-06-21 15:56 | Emergency (ER) | payer OTHER ==
[~2017-06-21] VITALS: Ht 160 cm; Wt 103.5 kg
[~2017-06-21 15:56] MED LIST changes: +CIPR500T3; +DULO1CAP2; +METO1TAB32; +METR1TAB66; +PRED20TA; +PRIL20CA9 PO; +ZOFR4TAB3 PO
[2017-06-21 17:57] LABS: BASO # 0.1 K/mm3 (0.0-0.2); BASO % 0.5 % (0.0-1.0); EOS # 0.2 K/mm3 (0.0-0.50); EOS % 1.7 % (0.0-3.0); LARGE UNSTAINED CELL # 0.2 K/mm3 (0.0-0.4); LARGE UNSTAINED CELL % 1.3 % (0.0-4.0); LYMPH # 4.1 K/mm3 (1.5-6.5); LYMPH % 32.6 % (24.0-44.0); MEAN CORPUSCULAR HEMOGLOBIN 28.8 pg (27.0-33.0); MEAN CORPUSCULAR HGB CONC 33.2 g/dl (32.0-36.5); MEAN CORPUSCULAR VOLUME 86.8 fl (80.0-96.0); MONO # 0.6 K/mm3 (0.0-0.8); MONO % 5.1 % (0.0-5.0); NEUTROPHILS # 7.2 K/mm3 (1.8-7.7); NEUTROPHILS % 58.8 % (36.0-66.0); PLATELET COUNT, AUTOMATED 391 k/mm3 (150-450); RED CELL DISTRIBUTION WIDTH 13.9 % (11.5-14.5); WHITE BLOOD COUNT 12.2 K/mm3 (4.0-10.0)
[2017-06-21 18:12] LABS: CONTROL LINE HCG INT CTR LINE PRESENT
[2017-06-21 18:24] LABS: ALBUMIN 4.1 GM/DL (3.2-5.2); ALBUMIN/GLOBULIN RATIO 1.03 (1.00-1.93); ALKALINE PHOSPHATASE 125 U/L (45-117); ALT/SGPT 81 U/L (12-78); ANION GAP 7 MEQ/L (8-16); AST/SGOT 32 U/L (15-37); BILIRUBIN,DIRECT 0.2 MG/DL (0.0-0.2); BILIRUBIN,TOTAL 0.7 MG/DL (0.2-1.0); BLOOD UREA NITROGEN 8 MG/DL (7-18); CALCIUM LEVEL 9.1 MG/DL (8.5-10.1); CARBON DIOXIDE LEVEL 27 MEQ/L (21-32); CHLORIDE LEVEL 104 MEQ/L (98-107); CREATININE FOR GFR 0.71 MG/DL (0.55-1.02); GLOMERULAR FILTRATION RATE > 60.0 (>60); GLUCOSE, FASTING 85 MG/DL (70-105); POTASSIUM SERUM 3.4 MEQ/L (3.5-5.1); SODIUM LEVEL 138 MEQ/L (136-145); TOTAL PROTEIN 8.1 GM/DL (6.4-8.2)
--- NOTE | 2017-06-21 19:20 | REPUSA ---
HISTORY: ALTERED MENTAL STATUS. TECHNIQUE: Axial CT of head without contrast. FINDINGS: Ventricles and sulci are of normal size for this age group. Cedillo-white matter differentiati on is intact. There is no evidence of intracranial mass, mass effect, hemorrhage, or cystic lesion id entified. There is no detectable evidence of infarct. No bony lesions are seen in the calvarium or sk ull base. Paranasal sinuses and mastoid sinuses are clear. IMPRESSION: Negative noncontrast head CT examination.
[2017-06-21] MEDS ORDERED: lacrilube OD (19:30)
[2017-06-21] MEDS ORDERED: PRED20TA PO (19:30)
[2017-06-21] MEDS ORDERED: VALT500T PO (19:30)
[2017-06-21 19:51] VITALS: BP 150/90
== END 2017-06-21 19:56 | disposition home or self-care (01) ==
LOC: M ED 15:56
DX: G51.0 Bell's palsy (principal); I10 Essential (primary) hypertension; F17.200 Nicotine dependence, unspecified, uncomplicated; Z82.49 Family history of ischemic heart disease and other diseases of the circulatory system; Z79.899 Other long term (current) drug therapy; Z88.1 Allergy status to other antibiotic agents
CPT/HCPCS: 70450; 80048; 80076; 82550; 82553; 84443; 84703; 85025; 94760; 99283; G0480

== ENCOUNTER 2017-07-10 11:43 | Inpatient (IN) | payer OTHER ==
[~2017-07-10] VITALS: Ht 160 cm; Wt 103.1 kg
[~2017-07-10 11:43] MED LIST changes: +PRED20TA PO; +VALT500T PO; +lacrilube OD
[2017-07-10] MEDS ORDERED: DULO1CAP2 PO (12:13)
[2017-07-10] MEDS ORDERED: ALPR0.25 PO (12:13)
[2017-07-10] MEDS ORDERED: PENI500T PO (12:13)
[2017-07-10 14:00] LABS: MEAN CORPUSCULAR HEMOGLOBIN 29.3 pg (27.0-33.0); MEAN CORPUSCULAR HGB CONC 33.7 g/dl (32.0-36.5); MEAN CORPUSCULAR VOLUME 86.8 fl (80.0-96.0); RED CELL DISTRIBUTION WIDTH 14.1 % (11.5-14.5); WHITE BLOOD COUNT 12.4 K/mm3 (4.0-10.0)
[2017-07-10 14:17] LABS: CONTROL LINE HCG INT CTR LINE PRESENT
[2017-07-10 14:31] LABS: METHADONE URINE NEGATIVE (NEGATIVE)
[2017-07-10 14:34] LABS: ALBUMIN 4.1 GM/DL (3.2-5.2); ALBUMIN/GLOBULIN RATIO 1.03 (1.00-1.93); ALKALINE PHOSPHATASE 116 U/L (45-117); ALT/SGPT 46 U/L (12-78); ANION GAP 9 MEQ/L (8-16); AST/SGOT 21 U/L (15-37); BILIRUBIN,DIRECT < 0.1 MG/DL (0.0-0.2); BILIRUBIN,TOTAL 0.5 MG/DL (0.2-1.0); BLOOD UREA NITROGEN 9 MG/DL (7-18); CALCIUM LEVEL 9.5 MG/DL (8.5-10.1); CARBON DIOXIDE LEVEL 25 MEQ/L (21-32); CHLORIDE LEVEL 108 MEQ/L (98-107); CREATININE FOR GFR 0.66 MG/DL (0.55-1.02); GLOMERULAR FILTRATION RATE > 60.0 (>60); GLUCOSE, FASTING 104 MG/DL (70-105); POTASSIUM SERUM 4.1 MEQ/L (3.5-5.1); SODIUM LEVEL 142 MEQ/L (136-145); TOTAL PROTEIN 8.1 GM/DL (6.4-8.2)
[2017-07-10] MEDS ORDERED: TOPR50TA PO (16:05)
[2017-07-10] MEDS ORDERED: OMEP20CA3 PO (16:05)
[2017-07-10] MEDS ORDERED: ZOFR4TAB3 PO (16:07)
[2017-07-10] MEDS ORDERED: HEMP OIL SL (16:08)
[2017-07-10] MEDS ORDERED: PROBCAP4 PO (16:08)
[2017-07-10] MEDS ORDERED: LACRILUBE OU (16:09)
[2017-07-10] MEDS ORDERED: ONDANSETRON 4 MG ORAL DISINTEGRATING TAB (S0181) PO ONE (16:30)
[2017-07-10] MEDS ORDERED: MOM 30ML SUSPENSION UDC PO PRN (17:00)
[2017-07-10 18:21] VITALS: BP 138/95
[2017-07-10] MEDS: risperiDONE 0.5 MG TAB PO SCH (21:00)
[2017-07-10] MEDS: ACETAMINOPHEN TAB 650MG DOSE (2X325MG) PO PRN (21:15)
[2017-07-10] MEDS: PENICILLIN V POTASSIUM 500 MG TAB PO SCH (21:36)
[2017-07-10] MEDS: METOPROLOL SUCC (TopROL XL) 50MG **XL** TAB PO SCH (21:36)
[2017-07-10] MEDS: OLANZapine 5 MG TAB PO PRN (23:22)
[2017-07-10] MEDS: traZODone 50 MG TAB PO PRN (23:23)
[2017-07-11 06:30] VITALS: BP 139/84
--- NOTE | 2017-07-11 09:15 | HPEPDOC ---
Medical History and Physical Date of Admission Jul 10, 2017 at 16:50 History and Physical PCP: [facility] ATTENDING: Dr. Taras Small HPI: 21yoF admitted to [facility] for unspecified psychotic disorder, being medically examined today. Patient has reported chronic abdominal pain and bloating since her cholecystectomy in 2014. States she has right upper quadrant abdominal discomfort today. Sometimes constipation, has had chronic diarrhea. No association with any certain foods. No fevers or chills. No nausea or vomiting. Recent root canal as per Dr Quezada and Pt has been on PCN for dental abscess. F /U appt was yesterday however she missed her appt. Denies any weakness, fatigue, S[place], CP, SOB, cough, palpitations, N/V or changes in bladder habits. 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 CT Brain 06/21/[address] examination PSHX: Cholecystectomy 2014 Oral surgery EGD 01/26 [place]. Unremarkable. Pathology and H. pylori negative. Colonoscopy 01/26. [place]. Unremarkable. SOCHX: Resides in: [facility] Marital Status: Tobacco use: Denies ETOH: Denies Illicit Drugs: Denies IV Drug Use: Denies Tattoos done unprofessionally: Denies FAMHX: Mother: Alive, well Father: Alive, well Siblings: Alive, well Children: none Unexpected deaths due to medical reasons: None. ROS: As noted in HPI, otherwise 11pt ROS of systems reviewed and remarkable only for LMP unknown, irregular. PE: GEN: 21yoF, appears stated age. Well-nourished, well developed. Anxious. Alert and oriented x 3. HEENT: Normocephalic, atraumatic. Pupils are equal, round, and reactive to light. Extraocular movements are intact. No nystagmus appreciated. Sclera are nonicteric. Conjunctiva without injection. Nose midline. Nasal turbinates without bogginess. EACs both patent BL. TMs both visualized and sullivan with good cone of light, no bulging or erythema. No facial asymmetry. Moist mucous membranes. Dentition fair. Pharynx pink and moist. Neck supple, trachea midline. No lymphadenopathy or thyromegaly appreciated. CHEST: Regular rate and rhythm, +S1, +S2 LUNGS: Clear to auscultation bilaterally. No wheezes, rales, or rhonchi. Breathing appears symmetric and easy. Patient is speaking in full sentences. No accessory muscle use. ABD: Round, soft, mild TTP across upper abdomen, non-distended. +Bowel sounds throughout. No rebound or guarding. No costovertebral angle tenderness. EXT: Pulses 2+ bilaterally dorsalis pedis and radial. No lower extremity edema appreciated. SKIN: [place], dry, warm. Capillary refill <2sec. No rashes. NEURO: Alert and oriented x 3. Cranial nerves III-XII are intact. No focal deficits appreciated. EK06/18/17 SINUS RHYTHM WITH MARKED SINUS ARRHYTHMIA SIMILAR 12/05/16 A&P: 21yoF admitted to [facility] for unspecified psychotic disorder 1. Psych. Plan per Psychiatry. Obtain baseline EKG to assure the safety of psychiatric medications as they can prolong the QT interval. UA/UC. CT Brain unremarkable 06/21/17. 2. Recent dental procedure/dental infection. Continue with penicillin 500 mg 3 times a day. 3. Hypertension. Continue metoprolol 50 mg daily with hold parameters. 4. Follow up with PCP on discharge. 5. GERD. Continue Prilosec 20 mg daily. 6. Chronic Abdominal pain. H/O chronic diarrhea which she associates with her cholecystectomy. Check CT scan abdomen and pelvis. Update CBCd/CMP. Add lipase. Check UA/urine culture. request GI panel, if recurrent diarrhea. Screen for celiac. 7. Melyssa PAS present throughout exam. Vital Signs Vital Signs Date Time Temp Pulse Resp B/P (MAP) Pulse Ox O2 Delivery O2 Flow Rate FiO2 07/11/17 06:30 96.4 64 20 139/84 (102) 07/10/17 18:21 Room Air 07/10/17 17:38 99 Laboratory Data Labs 24H Laboratory Tests 2 07/10/17 13:47: Anion Gap 9, Glomerular Filtration Rate > 60.0, Calcium Level 9.5, Aspartate Amino Transf (AST/SGOT) 21, Alanine Aminotransferase (ALT/SGPT) 46, Alkaline Phosphatase 116, Total Bilirubin 0.5, Direct Bilirubin < 0.1, Total Protein 8.1 , Albumin 4.1, Albumin/Globulin Ratio 1.03, Thyroid Stimulating Hormone (TSH) 1.580, Human Chorionic Gonadotropin, Qual NEGATIVE, Salicylates Level < 1.7L, Acetaminophen Level < 2.0L, Ethyl Alcohol Level < 0.003 07/10/17 13:48: Urine Amphetamines Screen NEGATIVE, Urine Benzodiazepines Screen POSITIVEH, Urine Opiates Screen NEGATIVE, Urine Methadone Screen NEGATIVE, Urine Barbiturates Screen NEGATIVE, Urine Phencyclidine Screen NEGATIVE, Urine Cocaine Metabolite Screen NEGATIVE, Urine Cannabinoids Screen POSITIVEH CBC/BMP Laboratory Tests 07/10/17 13:47 Red Blood Count 4.46, Mean Corpuscular Volume 86.8, Mean Corpuscular Hemoglobin 29.3, Mean Corpuscular Hemoglobin Concent 33.7, Red Cell Distribution Width 14.1 Home Medications Scheduled Lactobacillus Acidophilus (Probiotic) 1 Cap Cap, 1 CAP PO DAILY Metoprolol Succinate (Toprol Xl) 50 Mg Tab, 50 MG PO DAILY Omeprazole (Omeprazole) 20 Mg Cap, 20 MG PO DAILY Penicillin V Potassium (Penicillin V Potassium) 500 Mg Tab, 1 TAB PO TID [Hemp Oil] , 0.5 MG SL DAILY Scheduled PRN Alprazolam (Alprazolam) 0.25 Mg Tab, 1 TAB PO Q6HP PRN for ANXIETY/AGITATION Ondansetron (Zofran Odt) 4 Mg Tab, 4 MG PO Q4H PRN for NAUSEA [Lacrilube] , 1 DOSE OU Q6H PRN for DRY EYES Allergies Coded Allergies: No Known Drug Allergy (Verified Allergy, Unknown, 01/24/17) Ciprofloxacin (Unverified Adverse Reaction, Unknown, PANIC ATTACK, BREATHING PROBLEM, 07/10/17) Camila Carrion Jul 11, 2017 09:15
[2017-07-11] MEDS: OMEPRAZOLE 20 MG CAP PO SCH (09:39)
[2017-07-11] MEDS: risperiDONE 0.5 MG TAB PO SCH (09:39)
[2017-07-11] MEDS: PENICILLIN V POTASSIUM 500 MG TAB PO SCH ×3 (09:39→20:40)
[2017-07-11] MEDS: LACTOBACILLUS ACIDOPHILUS CAP (BACID) PO SCH (09:39)
[2017-07-11 10:41] LABS: BASO # 0.1 K/mm3 (0.0-0.2); BASO % 0.9 % (0.0-1.0); EOS # 0.1 K/mm3 (0.0-0.50); EOS % 1.3 % (0.0-3.0); LARGE UNSTAINED CELL # 0.1 K/mm3 (0.0-0.4); LARGE UNSTAINED CELL % 1.6 % (0.0-4.0); LYMPH # 1.6 K/mm3 (1.5-6.5); LYMPH % 24.7 % (24.0-44.0); MEAN CORPUSCULAR HEMOGLOBIN 29.2 pg (27.0-33.0); MEAN CORPUSCULAR HGB CONC 33.2 g/dl (32.0-36.5); MEAN CORPUSCULAR VOLUME 88.1 fl (80.0-96.0); MONO # 0.4 K/mm3 (0.0-0.8); MONO % 6.6 % (0.0-5.0); NEUTROPHILS % 64.9 % (36.0-66.0); PLATELET COUNT, AUTOMATED 307 k/mm3 (150-450); RED CELL DISTRIBUTION WIDTH 14.3 % (11.5-14.5); WHITE BLOOD COUNT 6.1 K/mm3 (4.0-10.0)
[2017-07-11 10:58] LABS: ALBUMIN 3.5 GM/DL (3.2-5.2); ALKALINE PHOSPHATASE 99 U/L (45-117); ALT/SGPT 41 U/L (12-78); ANION GAP 6 MEQ/L (8-16); AST/SGOT 20 U/L (15-37); BILIRUBIN,TOTAL 0.5 MG/DL (0.2-1.0); BLOOD UREA NITROGEN 9 MG/DL (7-18); CARBON DIOXIDE LEVEL 30 MEQ/L (21-32); CHLORIDE LEVEL 108 MEQ/L (98-107); CREATININE FOR GFR 0.67 MG/DL (0.55-1.02); GLOMERULAR FILTRATION RATE > 60.0 (>60); GLUCOSE, FASTING 141 MG/DL (70-105); POTASSIUM SERUM 4.3 MEQ/L (3.5-5.1); SODIUM LEVEL 144 MEQ/L (136-145)
--- NOTE | 2017-07-11 12:02 | REP ---
CT ABDOMEN PELVIS WITHOUT IV OR ORAL CONTRAST: Renal stone protocol. HISTORY: Abdominal pain. Comparison study: June 17, 2017 [facility] study. FINDINGS: Preliminary digital major gifts officer radiograph demonstrates a normal bowel gas pattern and surgical clips in the right upper quadrant consistent with a previous cholecystectomy. The lung bases are clear on axial CT images. The liver and the spleen are normal in size and homogeneous in texture. There is a small accessory splenule. The clips are seen in the gallbladder fossa post cholecystectomy. No adrenal lesion is seen. No pancreatic abnormality is noted. The kidneys are morphologically intact. No renal calculus or hydronephrosis is seen. No retroperitoneal mass or adenopathy is seen. Normal caliber aorta is noted. A normal appendix is seen. No uterine or ovarian abnormality is observed. The urinary bladder is largely empty but unremarkable. No pelvic mass or adenopathy is seen. No abdominal wall defect is noted. Small and large intestinal bowel loops are unremarkable. Bone window settings show no bony destructive lesion. IMPRESSION: Negative CT study abdomen and pelvis without contrast. Signed by Lokesh Hickey MD 07/11/2017 01:44 P
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
[2017-07-11] MEDS ORDERED: hydrOXYzine 25 MG TAB PO PRN (13:30)
[2017-07-11] MEDS: ESCITALOPRAM OXALATE 5MG TABLET (LEXAPRO) PO SCH (15:07)
[2017-07-11 18:00] VITALS: BP 136/78
[2017-07-11] MEDS: METOPROLOL SUCC (TopROL XL) 50MG **XL** TAB PO SCH (18:22)
[2017-07-11] MEDS ORDERED: AZITHROMYCIN 250 MG TAB PO ONE (18:45)
--- NOTE | 2017-07-11 19:57 | IPN ---
DATE: 07/11/2017 Called by nursing staff that the patient's gastrointestinal (GI) panel is positive for Clostridium difficile enteropathogenic E. Coli. The patient's only symptom is abdominal pain with no diarrhea. HCG is negative. Will place the patient on vancomycin oral and give one dose of azithromycin and the patient started to have diarrhea. Will observe contact precaution. Will monitor the patient closely and give probiotics.
[2017-07-11] MEDS: VANCOMYCIN ORAL SOL 250MG/5ML ORAL SYRINGE PO SCH (20:41)
[2017-07-11] MEDS: OLANZapine 5 MG TAB PO PRN (21:17)
[2017-07-12] MEDS: VANCOMYCIN ORAL SOL 250MG/5ML ORAL SYRINGE PO SCH ×5 (01:21→23:47)
[2017-07-12 06:47] VITALS: BP 109/65
[2017-07-12] MEDS: OMEPRAZOLE 20 MG CAP PO SCH (08:48)
[2017-07-12] MEDS: LACTOBACILLUS ACIDOPHILUS CAP (BACID) PO SCH (08:48)
[2017-07-12] MEDS: ESCITALOPRAM OXALATE 5MG TABLET (LEXAPRO) PO SCH (08:48)
[2017-07-12] MEDS: PENICILLIN V POTASSIUM 500 MG TAB PO SCH ×2 (08:48→15:22)
[2017-07-12] MEDS ORDERED: FLUCONAZOLE 50MG TABLET PO ONE (09:00)
--- NOTE | 2017-07-12 10:48 | IPNPDOC ---
Date Seen The patient was seen on 07/12/17. Progress Note HPI: 21yoF admitted to [facility] for unspecified psychotic disorder, being medically examined today. Patient has reported chronic abdominal pain and bloating since her cholecystectomy in 2014. States right upper quadrant abdominal discomfort is less today. Sometimes constipation, has had chronic diarrhea. BM x 1 today. No association with any certain foods. No fevers or chills. No nausea or vomiting. Recent root canal as per Dr Quezada and Pt has been on PCN for dental abscess. F /U appt was yesterday however she missed her appt. Denies any weakness, fatigue, S[place]IA, CP, SOB, cough, palpitations, N/V or changes in bladder habits. 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 CT Brain 06/21/[address] examination PSHX: Cholecystectomy 2014 Oral surgery EGD 01/26 [place]. Unremarkable. Pathology and H. pylori negative. Colonoscopy 01/26. [place]. Unremarkable. PE: GEN: 21yoF, appears stated age. Well-nourished, well developed. Anxious. Alert and oriented x 3. HEENT: Normocephalic, atraumatic. Pupils are equal, round, and reactive to light. Extraocular movements are intact. No nystagmus appreciated. Sclera are nonicteric. Conjunctiva without injection. Nose midline. Nasal turbinates without bogginess. EACs both patent BL. TMs both visualized and sullivan with good cone of light, no bulging or erythema. No facial asymmetry. Moist mucous membranes. Dentition fair. Pharynx pink and moist. Neck supple, trachea midline. No lymphadenopathy or thyromegaly appreciated. CHEST: Regular rate and rhythm, +S1, +S2 LUNGS: Clear to auscultation bilaterally. No wheezes, rales, or rhonchi. Breathing appears symmetric and easy. Patient is speaking in full sentences. No accessory muscle use. ABD: Round, soft, mild TTP across upper abdomen, non-distended. +Bowel sounds throughout. No rebound or guarding. No costovertebral angle tenderness. EXT: Pulses 2+ bilaterally dorsalis pedis and radial. No lower extremity edema appreciated. SKIN: [place], dry, warm. Capillary refill <2sec. No rashes. NEURO: Alert and oriented x 3. Cranial nerves III-XII are intact. No focal deficits appreciated. EK06/18/17 SINUS RHYTHM WITH MARKED SINUS ARRHYTHMIA SIMILAR 12/05/16 GI panel 07/11/17 Organism 1 CLOSTRIDIUM DIFFICILE A/B FORMED stool. Performing testing on formed stool from patients who do not have CDI symptoms detects asymptomatic colonized patients (up to 30% of hospitalized patients are colonized with C. difficile). Patients with false positive results may be given unnecessary treatment, placed on contact isolation, and be at increased risk of vancomycin resistant enterococci. Organism 2 ENTEROPATHOGENIC E.COLI Enteropathogenic E.coli (EPEC) infections can range from asymptomatic to acute non bloody diarrhea with vomiting and fever. EPEC outbreaks appear to peak in summer and early fall. CT A/P Negative CT study abdomen and pelvis without contrast. A&P: 21yoF admitted to [facility] for unspecified psychotic disorder 1. Psych. Plan per Psychiatry. EKG on filel. UA/UC. CT Brain unremarkable . 2. Recent dental procedure/dental infection. Pt has continued with penicillin 500 mg 3 times a day. Discussed with pt, she had 6 tablets left when she was admitted to [facility]. Will d/c after next dose today as she has completed her regimen. 3. Hypertension. Continue metoprolol 50 mg daily with hold parameters. 4. Follow up with PCP on discharge. 5. GERD. Mylanta if needed. 6. Chronic Abdominal pain. H/O chronic diarrhea which she associates with her cholecystectomy. GI panel indicated Cdiff and E Coli enteropathogenic. Patient was given azithromycin 1 g by mouth 1. Pt started on by mouth vancomycin 125 mg by mouth every 6 hours 10 days. Bacid 1 tablet by mouth daily. 7. Pt states she was supposed to tow picker medication from PCP for vaginal candidiasis the day of admission. Will give Diflucan po x 1 today. 8. Kecia PEREA present throughout exam. VS, I&O, 24H, Fishbone Vital Signs/I&O Vital Signs Date Time Temp Pulse Resp B/P (MAP) Pulse Ox O2 Delivery O2 Flow Rate FiO2 07/12/17 06:47 98.6 73 18 109/65 (80) 07/10/17 18:21 Room Air 07/10/17 17:38 99 Laboratory Data Microbiology Microbiology 07/11/17 Gastrointestinal Tract Panel (PCR) - Final, Complete Clostridium Difficile A/B Enteropathogenic E.coli Camila Carrion Jul 12, 2017 10:48
[2017-07-12] MEDS: hydrOXYzine 50 MG TAB PO PRN ×2 (14:28→20:30)
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
[2017-07-12] MEDS: OLANZapine 5 MG TAB PO PRN (15:30)
[2017-07-12] MEDS: MAALOX 30 ML SUSP *UDC PO PRN (16:08)
[2017-07-12] MEDS: METOPROLOL SUCC (TopROL XL) 50MG **XL** TAB PO SCH (18:51)
[2017-07-12] MEDS: traZODone 50 MG TAB PO PRN (20:31)
[2017-07-13] MEDS: VANCOMYCIN ORAL SOL 250MG/5ML ORAL SYRINGE PO SCH ×4 (06:12→23:31)
[2017-07-13] MEDS: hydrOXYzine 50 MG TAB PO PRN ×2 (06:31→16:11)
[2017-07-13 07:04] VITALS: BP 129/77
[2017-07-13] MEDS: ESCITALOPRAM OXALATE 10 MG TAB (LEXAPRO) PO SCH (09:02)
[2017-07-13] MEDS: OLANZapine 5 MG TAB PO PRN ×2 (09:02→20:17)
[2017-07-13] MEDS: LACTOBACILLUS ACIDOPHILUS CAP (BACID) PO SCH (09:02)
[2017-07-13] MEDS: METOPROLOL SUCC (TopROL XL) 50MG **XL** TAB PO SCH (17:41)
[2017-07-13 18:00] VITALS: BP 133/75
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
[2017-07-13] MEDS: traZODone 50 MG TAB PO PRN (21:38)
[2017-07-14] MEDS: VANCOMYCIN ORAL SOL 250MG/5ML ORAL SYRINGE PO SCH ×4 (06:00→23:56)
[2017-07-14] MEDS: hydrOXYzine 50 MG TAB PO PRN ×3 (06:06→20:28)
[2017-07-14 07:12] VITALS: BP 145/60
[2017-07-14] MEDS: LACTOBACILLUS ACIDOPHILUS CAP (BACID) PO SCH (08:54)
[2017-07-14] MEDS: OLANZapine 5 MG TAB PO PRN ×2 (08:55→17:43)
[2017-07-14] MEDS: ESCITALOPRAM OXALATE 10 MG TAB (LEXAPRO) PO SCH (08:55)
[2017-07-14] MEDS: MAALOX 30 ML SUSP *UDC PO PRN (15:58)
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
[2017-07-14] MEDS: METOPROLOL SUCC (TopROL XL) 50MG **XL** TAB PO SCH (17:42)
[2017-07-14 18:00] VITALS: BP 135/77
[2017-07-15] MEDS: VANCOMYCIN ORAL SOL 250MG/5ML ORAL SYRINGE PO SCH ×4 (05:47→23:44)
[2017-07-15] MEDS: hydrOXYzine 50 MG TAB PO PRN ×3 (05:53→20:30)
[2017-07-15] MEDS: ESCITALOPRAM OXALATE 5MG TABLET (LEXAPRO) PO SCH (09:20)
[2017-07-15] MEDS: LACTOBACILLUS ACIDOPHILUS CAP (BACID) PO SCH (09:20)
[2017-07-15] MEDS: MAALOX 30 ML SUSP *UDC PO PRN ×2 (11:23→18:29)
[2017-07-15] MEDS: METOPROLOL SUCC (TopROL XL) 50MG **XL** TAB PO SCH (17:03)
[2017-07-15 18:00] VITALS: BP 140/82
[2017-07-15] MEDS: traZODone 50 MG TAB PO PRN (20:30)
[2017-07-16] MEDS: hydrOXYzine 50 MG TAB PO PRN ×2 (02:49→12:29)
[2017-07-16] MEDS: MAALOX 30 ML SUSP *UDC PO PRN ×4 (02:53→21:55)
[2017-07-16] MEDS: VANCOMYCIN ORAL SOL 250MG/5ML ORAL SYRINGE PO SCH ×4 (05:39→23:00)
[2017-07-16] MEDS: ESCITALOPRAM OXALATE 5MG TABLET (LEXAPRO) PO SCH (08:45)
[2017-07-16] MEDS: LACTOBACILLUS ACIDOPHILUS CAP (BACID) PO SCH (08:45)
[2017-07-16] MEDS ORDERED: ISOVUE-370 76% 100ML VIAL (Q9967) As Ordered ONE (16:20)
--- NOTE | 2017-07-16 17:09 | REP ---
Clinical: Abdominal and epigastric pain. Technique: Axial contrast enhanced images from the lung bases to the pubic symphysis using 100 ml Isovue 370 intravenous contrast material with coronal and sagittal re-formations. Comparison: 07/11/2017. Findings: Lung bases are clear. Visualized heart and pericardium normal. Liver, spleen, pancreas, bilateral adrenal glands and kidneys are normal. The patient is status post cholecystectomy. The enteric system is without obstruction or acute inflammatory process mildly prominent lymph nodes in the right lower quadrant suggest mesenteric adenitis and should be correlated clinically. A normal terminal ileum and appendix are identified. Pelvis demonstrates normal bladder and age-appropriate uterus/adnexa. No pelvic fluid or ascites. No free air. No retroperitoneal adenopathy. Musculoskeletal structures are intact. Impression: 1. Focus of lymph nodes in the right lower quadrant compatible with deep mesenteric adenitis. 2. No further acute abdominopelvic pathology appreciated. Signed by Eloy Montana MD 07/16/2017 05:01 P
--- NOTE | 2017-07-16 17:27 | CR.PDOC ---
[facility] Consultation Consultation DATE OF CONSULTATION: Jul 10, 2017 at 11:43 PRIMARY CARE PHYSICIAN: Giovanny Astudillo REFERRING PROVIDER: Dr. Reid ATTENDING PHYSICIAN: Dr. Crane REASON FOR CONSULTATION/CHIEF COMPLAINT: Abdominal pain. HISTORY OF PRESENT ILLNESS: Ms. Peoples is a 21-year-old female who is currently admitted to the in-patient mental health unit with an acute complaint of abdominal pain. She reports that she developed a sharp and "bubbly-like" pain in the left upper quadrant of her abdomen after going to the restroom. Denies ever having a pain like this before. Denies any acute musculoskeletal injury to the area. Also reports bilateral lower thoracic back pain and chest palpitations and a tightness in her chest. Also reports a bad taste in the back of her throat. She admits to nausea and one episode of white colored vomitus. Reports prior dry heaves after dinner last evening. Admits to eating a turkey sandwich for lunch today and has not vomited that up. Admits to night sweats, chills, blurry vision, abdominal distention, and urinary frequency. Denies all other review of systems. Does have a recent diagnosis of Clostridium difficile infection for which she is currently being treated. Reports eleven non-bloody bowel movements. ALLERGIES: Please see below. HOME MEDICATIONS: Please see below. PAST MEDICAL HISTORY: 1. Anxiety 2. Depression 3. Panic attack 4. Poor dentition 5. Hypertension 6. 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 Cholecystectomy, 2014 2. Oral surgery 3. EGD 01/26 - Unremarkable. Pathology and H. Pylori negative. 4. Colonoscopy 01/26 - Unremarkable. FAMILY HISTORY: Father: Alive, well Mother: Alive, well Siblings: Alive, well Children: none Unexpected deaths due to medical reasons: None SOCIAL HISTORY: Resides in: [facility] Marital Status: Tobacco use: Denies ETOH: Denies Illicit Drugs: Denies IV Drug Use: Denies Tattoos done unprofessionally: Denies REVIEW OF SYSTEMS: CONSTITUTIONAL: Admits to night sweats, chills; denies fever HEENT: Admits to blurry vision, tinnitus; denies headache CARDIOVASCULAR: Admits to chest tightness, palpitations RESPIRATORY: Denies shortness of breath, wheeze, cough GENITOURINARY: Admits to urinary frequency; denies hematuria, dysuria. MUSCULOSKELETAL: Denies musculoskeletal pain GASTROINTESTINAL: Admits to non-bloody diarrhea, bad taste in the back of her mouth HEMATOLOGIC/LYMPHATIC: Denies acute episodes of bleeding PHYSICAL EXAMINATION: VITAL SIGNS: Please see below. GENERAL APPEARANCE: Pleasant female sitting on the exam table during my evaluation, appears stated age, adequately dressed, no acute distress. HEENT: Atraumatic, normocephalic, PERRL, EOMI, wears spectacles. RESPIRATORY: Clear to auscultation bilaterally, adequate inspiratory and expiratory airway excursion, no wheeze, rhonchi, crackles. CARDIOVASCULAR: Regular rate and rhythm, normal S1 and S2, no murmur, rub, click. ABDOMEN: Obese, soft, no guarding, rebound appreciated, no masses, bowel sounds diminished, subjectively tender to palpation in the left upper quadrant and epigastrum. EXTREMITIES: Warm, dry, intact, peripheral pulses appreciated. NEUROLOGICAL: CN II-XII grossly intact. PSYCHIATRIC: Pleasant, conversant. LABORATORY DATA: Please see below. ASSESSMENT/PLAN: 1. Abdominal pain: Likely GERD. R/O more serious etiologies. Obtaining CT of the abdomen and pelvis. Ordering stool studies, including potassium, chloride, osmolarity, sodium, and polys. Obtaining labs - CMP, lipase, LA, and cardiac markers. Urinalysis with culture and blood culture. H. pylori testing. Administer protonix. Continue with Mylanta. 2. Clostridium difficile infection: Continue with Bacid and Vancomycin. 3. Psychiatric condition: Defer to primary team, psychiatry. Vital Signs/I&O Vital Signs Date Time Temp Pulse Resp B/P (MAP) Pulse Ox O2 Delivery O2 Flow Rate FiO2 07/15/17 18:00 98.4 104 18 140/82 (101) 07/14/17 07:12 Room Air 07/10/17 17:38 99 I&O- Last 24 Hours up to 6 AM 07/16/17 05:59 Intake Total 2220 ml Balance 2220 ml Laboratory Data Microbiology Microbiology 07/11/17 Gastrointestinal Tract Panel (PCR) - Final, Complete Clostridium Difficile A/B Enteropathogenic E.coli Allergies Coded Allergies: Ciprofloxacin (Unverified Adverse Reaction, Unknown, PANIC ATTACK, BREATHING PROBLEM, 07/10/17) Home Medications Scheduled (First-Vancomycin 50) 50 Mg/Ml Caro, 125 MG PO Q6H for DIARRHEA, #40 Escitalopram Oxalate (Escitalopram Oxalate) 10 Mg Tab, 15 MG PO DAILY for DEPRESSION for 7 Days, #11 Lactobacillus Acidophilus (Probiotic) 1 Cap Cap, 1 CAP PO DAILY, (Reported) Metoprolol Succinate (Toprol Xl) 50 Mg Tab, 50 MG PO DAILY, (Reported) Omeprazole (Omeprazole) 20 Mg Cap, 20 MG PO DAILY, (Reported) Scheduled PRN Hydroxyzine HCl (Hydroxyzine HCl) 50 Mg Tab, 50 MG PO Q6HP PRN for ANXIETY/ AGITATION for 7 Days, #21 Ondansetron (Zofran Odt) 4 Mg Tab, 4 MG PO Q4H PRN for NAUSEA, (Reported) Trazodone HCl (Trazodone HCl) 50 Mg Tab, 50 MG PO QHSP PRN for INSOMNIA for 7 Days, #7 [Lacrilube] , 1 DOSE OU Q6H PRN for DRY EYES, (Reported) GME ATTESTATION GME ATTESTATION My preceptor for this patient encounter was physically present in the building during the encounter and was fully available. As needed, all aspects of the patient interview, examination, medical decision making process, and medical care plan development were reviewed and approved by the preceptor. Preceptor is aware and concurs with the plan as stated in the body of this note and will attest to such by his/her cosignature. ATTENDING NOTE I have both independently examined this patient as well as reviewed the H&P. I have discussed in detail with the resident the findings and plan of treatment as documented in the residents note. I will continue to follow the patient and offer further guidance to the patients care as necessary during this hospital stay. SANDRA Dawn MD Jul 16, 2017 16:14 VISHAL CRANE MD Jul 21, 2017 08:52
[2017-07-16 18:00] VITALS: BP 185/86
[2017-07-16 18:46] LABS: BASO # 0.1 K/mm3 (0.0-0.2); BASO % 0.7 % (0.0-1.0); EOS # 0.1 K/mm3 (0.0-0.50); EOS % 0.8 % (0.0-3.0); LARGE UNSTAINED CELL # 0.1 K/mm3 (0.0-0.4); LYMPH # 2.6 K/mm3 (1.5-6.5); LYMPH % 24.1 % (24.0-44.0); MEAN CORPUSCULAR HEMOGLOBIN 29.6 pg (27.0-33.0); MEAN CORPUSCULAR HGB CONC 34.1 g/dl (32.0-36.5); MEAN CORPUSCULAR VOLUME 86.8 fl (80.0-96.0); MONO # 0.7 K/mm3 (0.0-0.8); MONO % 6.7 % (0.0-5.0); NEUTROPHILS # 6.8 K/mm3 (1.8-7.7); NEUTROPHILS % 66.6 % (36.0-66.0); PLATELET COUNT, AUTOMATED 374 k/mm3 (150-450); RED CELL DISTRIBUTION WIDTH 13.9 % (11.5-14.5); WHITE BLOOD COUNT 10.2 K/mm3 (4.0-10.0)
[2017-07-16] MEDS: METOPROLOL SUCC (TopROL XL) 50MG **XL** TAB PO SCH (18:51)
[2017-07-16 19:23] LABS: ALKALINE PHOSPHATASE 134 U/L (45-117); ALT/SGPT 67 U/L (12-78); ANION GAP 9 MEQ/L (8-16); AST/SGOT 34 U/L (15-37); BILIRUBIN,TOTAL 0.3 MG/DL (0.2-1.0); BLOOD UREA NITROGEN 9 MG/DL (7-18); CALCIUM LEVEL 9.1 MG/DL (8.5-10.1); CARBON DIOXIDE LEVEL 27 MEQ/L (21-32); CHLORIDE LEVEL 104 MEQ/L (98-107); GLOMERULAR FILTRATION RATE > 60.0 (>60); GLUCOSE, FASTING 100 MG/DL (70-105); POTASSIUM SERUM 4.2 MEQ/L (3.5-5.1); SODIUM LEVEL 140 MEQ/L (136-145)
[2017-07-16 19:24] LABS: MAGNESIUM LEVEL 2.5 MG/DL (1.8-2.4)
[2017-07-16 19:54] VITALS: BP 158/78
[2017-07-16] MEDS: OLANZapine 5 MG TAB PO PRN (19:56)
[2017-07-16] MEDS: PANTOPRAZOLE 20 MG TAB PO SCH (19:56)
[2017-07-17] MEDS: VANCOMYCIN ORAL SOL 250MG/5ML ORAL SYRINGE PO SCH ×4 (06:18→23:04)
[2017-07-17] MEDS: OLANZapine 5 MG TAB PO PRN (07:36)
[2017-07-17 08:08] LABS: MEAN CORPUSCULAR HEMOGLOBIN 29.7 pg (27.0-33.0); MEAN CORPUSCULAR HGB CONC 33.9 g/dl (32.0-36.5); MEAN CORPUSCULAR VOLUME 87.5 fl (80.0-96.0); RED CELL DISTRIBUTION WIDTH 13.6 % (11.5-14.5); WHITE BLOOD COUNT 7.4 K/mm3 (4.0-10.0)
[2017-07-17] MEDS: MAALOX 30 ML SUSP *UDC PO PRN ×3 (08:24→23:04)
[2017-07-17 08:33] LABS: ANION GAP 10 MEQ/L (8-16); BLOOD UREA NITROGEN 9 MG/DL (7-18); CARBON DIOXIDE LEVEL 27 MEQ/L (21-32); CHLORIDE LEVEL 106 MEQ/L (98-107); CREATININE FOR GFR 0.72 MG/DL (0.55-1.02); GLOMERULAR FILTRATION RATE > 60.0 (>60); GLUCOSE, FASTING 94 MG/DL (70-105); MAGNESIUM LEVEL 2.5 MG/DL (1.8-2.4); POTASSIUM SERUM 4.3 MEQ/L (3.5-5.1); SODIUM LEVEL 143 MEQ/L (136-145)
[2017-07-17] MEDS: ESCITALOPRAM OXALATE 5MG TABLET (LEXAPRO) PO SCH (09:18)
[2017-07-17] MEDS: LACTOBACILLUS ACIDOPHILUS CAP (BACID) PO SCH (09:18)
[2017-07-17] MEDS: ACETAMINOPHEN TAB 650MG DOSE (2X325MG) PO PRN ×2 (12:24→20:13)
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
[2017-07-17 17:42] VITALS: BP 140/82
[2017-07-17] MEDS: METOPROLOL SUCC (TopROL XL) 50MG **XL** TAB PO SCH (17:42)
[2017-07-17 18:00] VITALS: BP 138/78
[2017-07-17] MEDS: PANTOPRAZOLE 20 MG TAB PO SCH (20:12)
[2017-07-18] MEDS: VANCOMYCIN ORAL SOL 250MG/5ML ORAL SYRINGE PO SCH ×2 (06:10→11:33)
[2017-07-18] MEDS: ACETAMINOPHEN TAB 650MG DOSE (2X325MG) PO PRN ×2 (06:34→13:11)
[2017-07-18 06:55] LABS: MEAN CORPUSCULAR HEMOGLOBIN 29.4 pg (27.0-33.0); MEAN CORPUSCULAR HGB CONC 33.6 g/dl (32.0-36.5); MEAN CORPUSCULAR VOLUME 87.7 fl (80.0-96.0); RED CELL DISTRIBUTION WIDTH 13.7 % (11.5-14.5); WHITE BLOOD COUNT 7.4 K/mm3 (4.0-10.0)
[2017-07-18 07:15] LABS: ANION GAP 10 MEQ/L (8-16); BLOOD UREA NITROGEN 9 MG/DL (7-18); CALCIUM LEVEL 9.3 MG/DL (8.5-10.1); CARBON DIOXIDE LEVEL 28 MEQ/L (21-32); CHLORIDE LEVEL 106 MEQ/L (98-107); CREATININE FOR GFR 0.68 MG/DL (0.55-1.02); GLOMERULAR FILTRATION RATE > 60.0 (>60); GLUCOSE, FASTING 87 MG/DL (70-105); MAGNESIUM LEVEL 2.4 MG/DL (1.8-2.4); POTASSIUM SERUM 4.1 MEQ/L (3.5-5.1); SODIUM LEVEL 144 MEQ/L (136-145)
[2017-07-18] MEDS: ESCITALOPRAM OXALATE 5MG TABLET (LEXAPRO) PO SCH (08:48)
[2017-07-18] MEDS: LACTOBACILLUS ACIDOPHILUS CAP (BACID) PO SCH (08:48)
[2017-07-18] MEDS ORDERED: HYDRO50TAB PO (09:32)
[2017-07-18] MEDS ORDERED: ESCI10TA2 PO (09:32)
[2017-07-18] MEDS ORDERED: TRAZO50TA PO (09:32)
[2017-07-18] MEDS ORDERED: FIRS1SOL3 PO (13:20)
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
[2017-07-19 14:13] LABS: DQ2(DQ1A 0501/0505,DQB1 02XX) Negative (.); DQ8(DQA1 03XX, DQB1 0302) Positive (.)
== END 2017-07-18 13:45 | disposition home or self-care (01) | DRG 880 ==
LOC: M ED 11:43 → M ED INP 16:50 → M PSY 18:20
PROVIDERS: ADMIT Psychiatry & Neurology Psychiatry; ATTEND Psychiatry & Neurology Psychiatry
DX: F41.0 Panic disorder [episodic paroxysmal anxiety] (principal); A04.7 Enterocolitis due to Clostridium difficile; A04.4 Other intestinal Escherichia coli infections; Z68.41 Body mass index [BMI] 40.0-44.9, adult; F41.1 Generalized anxiety disorder; E66.9 Obesity, unspecified; K21.9 Gastro-esophageal reflux disease without esophagitis; I10 Essential (primary) hypertension; R10.11 Right upper quadrant pain; Z90.49 Acquired absence of other specified parts of digestive tract; Z79.899 Other long term (current) drug therapy; Z81.8 Family history of other mental and behavioral disorders; Z88.1 Allergy status to other antibiotic agents

== ENCOUNTER 2017-08-09 18:29 | Emergency (ER) | payer OTHER ==
[~2017-08-09] VITALS: Ht 160 cm; Wt 104.5 kg
[~2017-08-09 18:29] MED LIST changes: +ALPR0.25 PO; +DULO1CAP2 PO; +ESCI10TA2 PO; +FIRS1SOL3 PO; +HEMP OIL SL; +HYDRO50TAB PO; +LACRILUBE OU; +OMEP20CA3 PO; +PENI500T PO; +PROBCAP4 PO; +TOPR50TA PO; +TRAZO50TA PO
[2017-08-09] MEDS ORDERED: DICY20TA (18:44)
[2017-08-09] MEDS ORDERED: HYDR50TA70 (18:44)
[2017-08-09] MEDS ORDERED: ESCI20TA (18:44)
[2017-08-09] MEDS ORDERED: D3-5CAP (18:44)
[2017-08-09] MEDS ORDERED: PRAZ1CAP (18:44)
[2017-08-09] MEDS ORDERED: KETOROLAC 30 MG/ML VIAL (J1885) IV ONE (21:30)
[2017-08-09 21:32] LABS: BASO # 0.1 10^3/uL (0.0-0.2); BASO % 0.5 % (0.0-1.0); EOS # 0.1 10^3/uL (0.0-0.50); EOS % 0.4 % (0.0-3.0); IMMATURE GRANULOCYTE % 0.3 % (0-0); LYMPH % 25.4 % (24.0-44.0); MEAN CORPUSCULAR HEMOGLOBIN 28.3 pg (27.0-33.0); MEAN CORPUSCULAR HGB CONC 32.7 g/dl (32.0-36.5); MEAN CORPUSCULAR VOLUME 86.7 fl (80.0-96.0); MONO # 0.7 10^3/uL (0.0-0.8); NEUTROPHILS # 7.9 10^3/uL (1.8-7.7); NEUTROPHILS % 67.4 % (36.0-66.0); PLATELET COUNT, AUTOMATED 427 10^3/uL (150-450); RED CELL DISTRIBUTION WIDTH 14.1 % (11.5-14.5); WHITE BLOOD COUNT 11.8 10^3/uL (4.0-10.0)
[2017-08-09 21:34] LABS: ADD MORPHOLOGY? NO
[2017-08-09 21:41] LABS: CONTROL LINE HCG INT CTR LINE PRESENT
[2017-08-09 21:48] LABS: ALBUMIN 3.8 GM/DL (3.2-5.2); ALBUMIN/GLOBULIN RATIO 0.84 (1.00-1.93); ALKALINE PHOSPHATASE 134 U/L (45-117); ALT/SGPT 35 U/L (12-78); ANION GAP 7 MEQ/L (8-16); AST/SGOT 13 U/L (15-37); BILIRUBIN,DIRECT < 0.1 MG/DL (0.0-0.2); BILIRUBIN,TOTAL 0.2 MG/DL (0.2-1.0); BLOOD UREA NITROGEN 11 MG/DL (7-18); CARBON DIOXIDE LEVEL 26 MEQ/L (21-32); CHLORIDE LEVEL 105 MEQ/L (98-107); GLOMERULAR FILTRATION RATE > 60.0 (>60); GLUCOSE, FASTING 92 MG/DL (70-105); POTASSIUM SERUM 3.9 MEQ/L (3.5-5.1); SODIUM LEVEL 138 MEQ/L (136-145); TOTAL PROTEIN 8.3 GM/DL (6.4-8.2)
[2017-08-09 21:59] LABS: ERYTHROCYTE SEDIMENTATION RATE 33 mm/hr (0-20)
[2017-08-09 23:22] VITALS: BP 109/71
--- NOTE | 2017-08-10 00:13 | REP ---
Clinical: Chest pain . Comparison: 06/17/2017 . Technique: PA and lateral. Findings: The mediastinum and cardiac silhouette are normal. The lung murray are clear and without acute consolidation, effusion, or pneumothorax. The skeletal structures are intact and normal. Impression: 1. No acute cardiopulmonary process. Signed by Eloy Montana MD 08/10/2017 12:04 A
--- NOTE | 2017-08-11 08:01 | ECGEPIP ---
Stationary ECG Study [facility] - ED Test Date: 2017-08-09 Pat Name: DENTON CHISHOLM Department: Room: - Gender: F [employer]: lg : 1995 Requested By: GWYN BAZAN Order Number: [id number] Reading MD: Jarred Greco Measurements Intervals [place] Rate: 93 P: 45 MN: 147 QRS: 23 QRSD: 94 T: 31 QT: 366 QTc: 456 Interpretive Statements SINUS RHYTHM Electronically Signed On 08-11-2017 8:00:41 EDT by Jarred Greco
== END 2017-08-09 23:22 | disposition home or self-care (01) ==
LOC: M ED 18:29
DX: R07.89 Other chest pain (principal); I10 Essential (primary) hypertension; Z79.899 Other long term (current) drug therapy
CPT/HCPCS: 71020; 80048; 80076; 82550; 82553; 83690; 84703; 85025; 85652; 86140; 93005; 93041; 96374; 99284; J1885

== ENCOUNTER 2017-08-14 21:05 | Emergency (ER) | payer OTHER ==
[~2017-08-14] VITALS: Ht 160 cm; Wt 104.5 kg
[~2017-08-14 21:05] MED LIST changes: +D3-5CAP; +DICY20TA; +ESCI20TA; +HYDR50TA70; +PRAZ1CAP
[2017-08-15] MEDS ORDERED: NS 1,000 ML IV ONE (01:30)
[2017-08-15 01:56] LABS: BASO # 0.1 10^3/uL (0.0-0.2); BASO % 0.5 % (0.0-1.0); EOS # 0.1 10^3/uL (0.0-0.50); EOS % 1.1 % (0.0-3.0); IMMATURE GRANULOCYTE % 0.2 % (0-0); LYMPH # 3.6 10^3/uL (1.5-6.5); LYMPH % 35.6 % (24.0-44.0); MEAN CORPUSCULAR HEMOGLOBIN 28.5 pg (27.0-33.0); MEAN CORPUSCULAR HGB CONC 32.8 g/dl (32.0-36.5); MEAN CORPUSCULAR VOLUME 86.9 fl (80.0-96.0); MONO # 0.9 10^3/uL (0.0-0.8); MONO % 8.4 % (0.0-5.0); NEUTROPHILS # 5.5 10^3/uL (1.8-7.7); NEUTROPHILS % 54.2 % (36.0-66.0); PLATELET COUNT, AUTOMATED 388 10^3/uL (150-450); RED CELL DISTRIBUTION WIDTH 14.2 % (11.5-14.5); WHITE BLOOD COUNT 10.2 10^3/uL (4.0-10.0)
[2017-08-15 02:00] VITALS: BP 123/79
[2017-08-15 02:09] LABS: INR 1.09
[2017-08-15 02:12] LABS: CONTROL LINE HCG INT CTR LINE PRESENT
[2017-08-15 02:19] LABS: ALBUMIN 3.8 GM/DL (3.2-5.2); ALBUMIN/GLOBULIN RATIO 0.84 (1.00-1.93); ALKALINE PHOSPHATASE 134 U/L (45-117); ALT/SGPT 35 U/L (12-78); AMYLASE 90 U/L (25-115); ANION GAP 4 MEQ/L (8-16); AST/SGOT 11 U/L (15-37); BILIRUBIN,DIRECT < 0.1 MG/DL (0.0-0.2); BILIRUBIN,TOTAL 0.3 MG/DL (0.2-1.0); BLOOD UREA NITROGEN 12 MG/DL (7-18); CALCIUM LEVEL 8.7 MG/DL (8.5-10.1); CARBON DIOXIDE LEVEL 31 MEQ/L (21-32); CHLORIDE LEVEL 105 MEQ/L (98-107); CREATININE FOR GFR 0.64 MG/DL (0.55-1.02); GLOMERULAR FILTRATION RATE > 60.0 (>60); GLUCOSE, FASTING 83 MG/DL (70-105); POTASSIUM SERUM 3.8 MEQ/L (3.5-5.1); SODIUM LEVEL 140 MEQ/L (136-145); TOTAL PROTEIN 8.3 GM/DL (6.4-8.2)
== END 2017-08-15 03:00 | disposition home or self-care (01) ==
LOC: M ED 21:05
DX: K92.1 Melena (principal); Z79.899 Other long term (current) drug therapy; Z88.8 Allergy status to other drugs, medicaments and biological substances; Z88.1 Allergy status to other antibiotic agents; Z87.891 Personal history of nicotine dependence; Z86.19 Personal history of other infectious and parasitic diseases

== ENCOUNTER 2017-08-15 16:55 | Emergency (ER) | payer OTHER ==
[~2017-08-15] VITALS: Ht 160 cm; Wt 105.9 kg
[2017-08-15] MEDS ORDERED: ONDANSETRON 4 MG ORAL DISINTEGRATING TAB (S0181) PO ONE (17:30)
[2017-08-15] MEDS ORDERED: NORCO, ANEXSIA 5/325MG TABLET (HYDROcodone/ACETAMINOPHEN) PO ONE (17:30)
[2017-08-15 18:00] LABS: CONTROL LINE UCG INT CTR LINE PRESENT
[2017-08-15 18:03] LABS: BASO # 0.1 10^3/uL (0.0-0.2); BASO % 0.6 % (0.0-1.0); EOS % 0.5 % (0.0-3.0); IMMATURE GRANULOCYTE % 0.3 % (0-0); LYMPH % 24.9 % (24.0-44.0); MEAN CORPUSCULAR HEMOGLOBIN 28.5 pg (27.0-33.0); MEAN CORPUSCULAR VOLUME 86.3 fl (80.0-96.0); MONO # 0.6 10^3/uL (0.0-0.8); MONO % 7.1 % (0.0-5.0); NEUTROPHILS # 5.3 10^3/uL (1.8-7.7); NEUTROPHILS % 66.6 % (36.0-66.0); PLATELET COUNT, AUTOMATED 408 10^3/uL (150-450); RED CELL DISTRIBUTION WIDTH 14.2 % (11.5-14.5)
[2017-08-15 18:07] LABS: ADD MORPHOLOGY? NO
[2017-08-15 18:26] VITALS: BP 129/83
[2017-08-15 18:27] LABS: ALBUMIN/GLOBULIN RATIO 1.08 (1.00-1.93); ALKALINE PHOSPHATASE 131 U/L (45-117); ALT/SGPT 32 U/L (12-78); AMYLASE 90 U/L (25-115); ANION GAP 7 MEQ/L (8-16); AST/SGOT 14 U/L (15-37); BILIRUBIN,DIRECT 0.1 MG/DL (0.0-0.2); BILIRUBIN,TOTAL 0.4 MG/DL (0.2-1.0); BLOOD UREA NITROGEN 8 MG/DL (7-18); CALCIUM LEVEL 8.9 MG/DL (8.5-10.1); CARBON DIOXIDE LEVEL 26 MEQ/L (21-32); CHLORIDE LEVEL 106 MEQ/L (98-107); CREATININE FOR GFR 0.57 MG/DL (0.55-1.02); GLOMERULAR FILTRATION RATE > 60.0 (>60); GLUCOSE, FASTING 108 MG/DL (70-105); POTASSIUM SERUM 4.3 MEQ/L (3.5-5.1); SODIUM LEVEL 139 MEQ/L (136-145); TOTAL PROTEIN 7.7 GM/DL (6.4-8.2)
--- NOTE | 2017-08-15 19:35 | REP ---
ABDOMEN, FLAT AND UPRIGHT PA CHEST, THREE VIEWS: HISTORY: Abdominal pain. COMPARISON: 08/09/2017 A small amount of air is present in small and large intestine. There are no air fluid levels or dilated loops of intestine. There is no pneumoperitoneum. Surgical clips are present in the right upper quadrant. The lungs are clear. IMPRESSION: Nonspecific bowel gas pattern. Signed by Sridhar Smith MD 08/15/2017 07:41 P
== END 2017-08-15 19:05 | disposition home or self-care (01) ==
LOC: M ED 16:55
DX: R10.84 Generalized abdominal pain (principal); R11.0 Nausea; R19.7 Diarrhea, unspecified; I10 Essential (primary) hypertension; Z79.899 Other long term (current) drug therapy; Z88.1 Allergy status to other antibiotic agents; Z86.19 Personal history of other infectious and parasitic diseases; Z87.891 Personal history of nicotine dependence

== ENCOUNTER 2017-11-16 23:33 | Emergency (ER) | payer OTHER ==
[2017-11-17] MEDS ORDERED: METOPROLOL TART 50 MG TAB PO (00:30)
[2017-11-17] MEDS ORDERED: LORazepam 1 MG TAB PO (00:34)
== END 2017-11-17 01:31 | disposition home or self-care (01) ==
LOC: M ED 23:33
DX: F41.9 Anxiety disorder, unspecified (principal); Z86.79 Personal history of other diseases of the circulatory system; Z79.899 Other long term (current) drug therapy; Z88.8 Allergy status to other drugs, medicaments and biological substances; Z88.1 Allergy status to other antibiotic agents
CPT/HCPCS: 93005

== ENCOUNTER 2024-08-23 11:50 | Emergency (ER) | payer BC, OTHER ==
[~2024-08-23] VITALS: Ht 160 cm; Wt 120.4 kg
[~2024-08-23 11:50] MED LIST changes: -DICY20TA; +DICY20TA3; -DULO1CAP2; -DULO1CAP2 PO; +DULO1CAP5; +DULO1CAP5 PO; +ESCI10TA16 PO; -ESCI10TA2 PO; -ESCI20TA; +ESCI20TA16; -FIRS1SOL3 PO; +FIRS50SO PO; +HYDR1TAB33 PO; -HYDRO50TAB PO; +METR-265; -METR1TAB66; +OMEP1CAP73 PO; -OMEP20CA3 PO; +TRAZ1TAB10 PO; -TRAZO50TA PO; -ZOFR20TA PO; +ZOFR4TAB14 PO; +ZOFR4TAB16 PO; -ZOFR4TAB3 PO
[2024-08-23 11:55] VITALS: BP 136/95; TEMP 97.3; O2SAT 99
[2024-08-23] MEDS ORDERED: ATEN100T PO (12:13)
[2024-08-23] MEDS ORDERED: XANA0.5T PO (12:13)
[2024-08-23] MEDS ORDERED: BACI500O8 TOP (12:48)
== END 2024-08-23 13:01 | disposition home or self-care (01) ==
LOC: M ED 11:50
DX: T23.201A Burn of second degree of right hand, unspecified site, initial encounter (principal); F41.0 Panic disorder [episodic paroxysmal anxiety]; F12.10 Cannabis abuse, uncomplicated; Z88.8 Allergy status to other drugs, medicaments and biological substances; Z79.2 Long term (current) use of antibiotics; Z79.899 Other long term (current) drug therapy; T31.10 Burns involving 10-19% of body surface with 0% to 9% third degree burns

== ENCOUNTER 2024-08-28 18:26 | Emergency (ER) | payer BC ==
[~2024-08-28] VITALS: Ht 160 cm; Wt 121.2 kg
[~2024-08-28 18:26] MED LIST changes: +ATEN100T PO; +BACI500O8 TOP; +XANA0.5T PO
[2024-08-28] MEDS: KETOROLAC 30 MG/ML 1ML VIAL IM ONE (21:21)
[2024-08-28] MEDS: methocarbamoL 750 MG TAB PO ONE (23:11)
[2024-08-28] MEDS: ACETAMINOPHEN 500 MG TAB PO ONE (23:11)
[2024-08-29] MEDS ORDERED: METH-1164 PO (02:33)
[2024-08-29 03:01] VITALS: BP 136/81; TEMP 98.1; O2SAT 99
== END 2024-08-29 03:02 | disposition home or self-care (01) ==
LOC: M ED 18:26
DX: M54.50 Low back pain, unspecified (principal); I10 Essential (primary) hypertension; K21.9 Gastro-esophageal reflux disease without esophagitis; F41.9 Anxiety disorder, unspecified; F32.A Depression, unspecified; Z88.1 Allergy status to other antibiotic agents; Z88.8 Allergy status to other drugs, medicaments and biological substances; Z79.2 Long term (current) use of antibiotics; Z79.899 Other long term (current) drug therapy
CPT/HCPCS: 72110; 72131; 81001; 87086; 96372; 99283; J1885

== ENCOUNTER → 2024-09-23 | Outpatient (CLI) | payer BC ==
[~2024-09-23] MED LIST changes: +METH-1164 PO
[2024-09-23 18:16] LABS: HEMATOCRIT 38.2 % (36.0-47.0); HEMOGLOBIN 12.1 g/dl (12.0-15.5); MEAN CORPUSCULAR HEMOGLOBIN 27.8 pg (27.0-33.0); MEAN CORPUSCULAR HGB CONC 31.7 g/dl (32.0-36.5); MEAN CORPUSCULAR VOLUME 87.8 fl (80.0-96.0); PLATELET COUNT, AUTOMATED 334 10^3/uL (150-450); RED BLOOD COUNT 4.35 10^6/uL (4.00-5.40); WHITE BLOOD COUNT 6.4 10^3/uL (4.0-10.0)
[2024-09-23 18:44] LABS: HEMOGLOBIN A1c 5.7 % (4.0-6.0)
[2024-09-23 18:49] LABS: ALBUMIN 3.5 G/DL (3.2-5.2); ALKALINE PHOSPHATASE 110 U/L (35-104); ALT/SGPT 36 U/L (7.0-40); AST/SGOT 17 U/L (<34); BILIRUBIN,TOTAL 0.3 MG/DL (0.3-1.2); BLOOD UREA NITROGEN 10 MG/DL (9-23); CALCIUM LEVEL 9.4 MG/DL (8.5-10.1); CARBON DIOXIDE LEVEL 28 MMOL/L (20-31); CHLORIDE LEVEL 108 MMOL/L (98-107); CHOLESTEROL LEVEL 146 MG/DL (<200); CHOLESTEROL RISK RATIO 4.66 (<5); CREATININE FOR GFR 0.63 MG/DL (0.55-1.30); FREE T4 0.97 NG/DL (0.89-1.76); GLOMERULAR FILTRATION RATE > 60.0 (>60); GLUCOSE, FASTING 101 MG/DL (60-100); HDL CHOLESTEROL 31.3 MG/DL (>40); LDL CHOLESTEROL 91.7 MG/DL (<100); NON-HDL-C 114.7 MG/DL; POTASSIUM SERUM 4.4 MMOL/L (3.5-5.1); SODIUM LEVEL 142 MMOL/L (136-145); THYROID STIMULATING HORMONE 2.301 uIU/ML (0.55-4.78); TOTAL PROTEIN 7.4 G/DL (5.7-8.2); TRIGLYCERIDES LEVEL 115 MG/DL (<150)
== END ==
LOC: M WUC 12:34
PROVIDERS: ATTEND Physician Assistant
DX: M54.50 Low back pain, unspecified (principal); R73.03 Prediabetes

== ENCOUNTER → 2025-01-27 | Outpatient (CLI) | payer BC ==
[2025-01-29 13:47] LABS: RUBEOLA IgG ANTIBODY > 300.00 AU/mL (>16.49)
== END ==
LOC: M WUC 12:45
PROVIDERS: ATTEND Physician Assistant
DX: Z76.89 Persons encountering health services in other specified circumstances (principal)

== ENCOUNTER → 2025-05-27 | Outpatient (CLI) | payer BC ==
[2025-05-27 14:40] LABS: ALT/SGPT 38 U/L (7.0-40); AST/SGOT 27 U/L (<34); CALCIUM LEVEL 9.2 MG/DL (8.5-10.1); CARBON DIOXIDE LEVEL 24 MMOL/L (20-31); CHLORIDE LEVEL 104 MMOL/L (98-107); CREATININE FOR GFR 0.62 MG/DL (0.55-1.30); GLOMERULAR FILTRATION RATE > 90.0 (>60); POTASSIUM SERUM 4.1 MMOL/L (3.5-5.1); SODIUM LEVEL 140 MMOL/L (136-145)
== END ==
LOC: M WUC 09:30
PROVIDERS: ATTEND Student in an Organized Health Care Education/Training Program
DX: R19.7 Diarrhea, unspecified (principal)